=== PATIENT | male | born 1965 | race Caucasian/White ===

== ENCOUNTER 2016-11-29 07:12 | Emergency (ER) | payer OTHER ==
[~2016-11-29] VITALS: Ht 182.9 cm; Wt 100.0 kg
[~2016-11-29 07:12] MED LIST: DILTCD240 PO; FOLI1 PO; LISI-363 PO; MVI PO; NICO14T TD; POLY10O EACH EYE; PROP20 PO; QUET100 PO; TAB-TAB PO; THIA100T PO
[2016-11-29 07:15] VITALS: BP 172/88; PULSE 98; RESP 15; TEMP 97.5; O2SAT 98
[2016-11-29 07:21] VITALS: BP 160/87; PULSE 104; RESP 20; O2SAT 96
[2016-11-29 07:27] VITALS: BP 160/87; PULSE 107; RESP 16; O2SAT 99
[2016-11-29] MEDS ORDERED: QUET1TAB9 PO (07:36)
[2016-11-29] MEDS ORDERED: ATEN25TA PO (07:36)
[2016-11-29] MEDS ORDERED: FURO1TAB62 PO (07:36)
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
[2016-11-29] MEDS ORDERED: SODIUM CHLORIDE 0.9% FLUSH 5 ML FLUSH IVF PRN (07:45)
[2016-11-29] MEDS ORDERED: ONDANSETRON HCL 4 MG/2 ML VIAL IVP ONE (07:45)
[2016-11-29] MEDS ORDERED: SODIUM CHLORID 0.9% 500 ML INJ 500 ML IV ONE (07:45)
[2016-11-29] MEDS ORDERED: MORPHINE SULFATE 4 MG/ML INJ IV PUSH ONE (07:45)
[2016-11-29 07:46] LABS: AUTOMATED NEUTROPHIL # 2.7 TH/MM3 (1.8-7.7); BASOPHIL # 0.1 TH/MM3 (0-0.2); BASOPHIL % 1.4 % (0.0-2.0); HEMATOCRIT 29.3 % (39.0-51.0); HEMO FLAGS DIFF FINAL; LYMPH % 14.7 % (9.0-44.0); LYMPHOCYTE # 0.5 TH/MM3 (1.0-4.8); MEAN CELL VOLUME 76.7 FL (80.0-100.0); MEAN CORPUSCULAR HEMOGLOBIN 25.5 PG (27.0-34.0); MEAN CORPUSCULAR HGB CONC 33.3 % (32.0-36.0); MONO % 6.3 % (0.0-8.0); NEUT % 76.6 % (16.0-70.0); PLATELET COUNT 103 TH/MM3 (150-450); RED BLOOD COUNT 3.82 MIL/MM3 (4.50-5.90); RED CELL DISTRIBUTION WIDTH 19.8 % (11.6-17.2); WHITE BLOOD COUNT 3.6 TH/MM3 (4.0-11.0)
[2016-11-29 08:00] LABS: APTT (PATIENT) 29.8 SEC (24.3-30.1); INTERNATIONAL NORMALIZED RATIO 1.2 RATIO; PROTHROMBIN TIME - PATIENT 13.4 SEC (9.8-11.6)
[2016-11-29 08:03] LABS: ANION GAP 8 MEQ/L (5-15); AST (GOT) 110 U/L (15-37); BICARBONATE 22.6 MEQ/L (21.0-32.0); BLOOD UREA NITROGEN 4 MG/DL (7-18); CHLORIDE 104 MEQ/L (98-107); GLOMERULAR FILTRATION RATE 112 ML/MIN (>89); POTASSIUM 3.7 MEQ/L (3.5-5.1); SODIUM (NA) 135 MEQ/L (136-145)
[2016-11-29 08:07] LABS: ALKALINE PHOSPHATASE 167 U/L (45-117); ALT (GPT) 68 U/L (12-78)
--- NOTE | 2016-11-29 08:21 | RADRPT ---
EXAM DATE/TIME: 11/29/2016 08:01 [facility] COMPARISON: No previous studies available for comparison. INDICATIONS : Lower abdominal pain, history of ascite and liver failure ORAL CONTRAST: No oral contrast ingested. RADIATION DOSE: 13.43 CTDIvol (mGy) MEDICAL HISTORY : Hypertension. Chronic obstructive pulmonary disease. Diabetes mellitus type 1. SURGICAL HISTORY : ENCOUNTER: Initial ACUITY: 1 day PAIN SCALE: 5/10 LOCATION: lower quadrant TECHNIQUE: Volumetric scanning of the abdomen and pelvis was performed. Using automated exposure control and ad justment of the mA and/or kV according to patient size, radiation dose was kept as low as reasonably achievable to obtain optimal diagnostic quality images. FINDINGS: LOWER LUNGS: The visualized lower lungs are clear. LIVER: Cirrhotic liver without lesion. There is no dilation of the biliary tree. No calcified gallstones. Moderate abdominal ascites. Subcentimeter low-density likely benign. SPLEEN: Massive splenomegaly without lesion. There are some varices in the upper abdomen. Splenule seen. PANCREAS: Within normal limits. KIDNEYS: Normal in size and shape. There is no mass, stone, or hydronephrosis. ADRENAL GLANDS: Within normal limits. VASCULAR: There is no aortic aneurysm. BOWEL/MESENTERY: The stomach, small bowel, and colon demonstrate no acute abnormality. There is no free intraperitone al air or fluid. ABDOMINAL WALL: Within normal limits. RETROPERITONEUM: There is no lymphadenopathy. BLADDER: No wall thickening or mass. REPRODUCTIVE: Within normal limits. INGUINAL: There is no lymphadenopathy or hernia. MUSCULOSKELETAL: Within normal limits for patient age. CONCLUSION: 1. Cirrhosis and splenomegaly. 2. Moderate abdominal ascites. 3. Subcentimeter low-density likely benign. Shane Man MD on November 29, 2016 at 8:16 Board Certified Radiologist. This report was verified electronically.
[2016-11-29 09:05] VITALS: BP 163/80; PULSE 87; RESP 12; O2SAT 99
[2016-11-29 09:16] LABS: BLOOD, URINE NEG (NEG); GLUCOSE,URINE NEG (NEG); KETONE, URINE NEG (NEG); NITRITE,URINE NEG (NEG); PH, URINE 7.5 (5.0-8.5); URINE COLOR YELLOW (YELLW/STRAW)
[2016-11-29 09:18] LABS: COMMENT (UR) CULT NOT INDICATED; CULTURE IF INDICATED CULT NOT INDICATED
== END 2016-11-29 10:34 | disposition home or self-care (01) ==
LOC: NEPE 07:12
DX: R18.8 Other ascites (principal); K74.60 Unspecified cirrhosis of liver; I12.9 Hypertensive chronic kidney disease with stage 1 through stage 4 chronic kidney disease, or unspecified chronic kidney disease; N18.9 Chronic kidney disease, unspecified; K75.9 Inflammatory liver disease, unspecified; F17.210 Nicotine dependence, cigarettes, uncomplicated; F12.10 Cannabis abuse, uncomplicated; Z87.891 Personal history of nicotine dependence
CPT/HCPCS: 74176; 80053; 81001; 83690; 85025; 85610; 85730; 96361; 96374; 96375; 99284; J2270; J2405; J7040

== ENCOUNTER 2017-01-11 07:31 | Inpatient (IN) | payer OTHER ==
[~2017-01-11] VITALS: Ht 182.9 cm; Wt 96.7 kg
[2017-01-11] VITALS (18 sets, daily range): BP systolic 115–162; BP diastolic 59–98; PULSE 102–188; RESP 20–26; TEMP 98–99.7; O2SAT 88–97
[~2017-01-11 07:31] MED LIST changes: +ATEN25TA PO; -DILTCD240 PO; -FOLI1 PO; +FURO1TAB62 PO; -LISI-363 PO; -MVI PO; -NICO14T TD; -POLY10O EACH EYE; -PROP20 PO; -QUET100 PO; +QUET1TAB9 PO; -TAB-TAB PO; -THIA100T PO
[2017-01-11] MEDS ORDERED: QUET1TAB9 PO (07:50)
[2017-01-11] MEDS ORDERED: SPIR100T PO (07:50)
[2017-01-11] MEDS ORDERED: ALBUAER3 INH (07:50)
[2017-01-11] MEDS ORDERED: FURO1TAB61 PO (07:50)
[2017-01-11] MEDS ORDERED: DICL75TA PO (07:50)
[2017-01-11] MEDS ORDERED: DILTIAZEM HCL 25 MG/5 ML VIAL IV ONE ×2 (08:00→08:30)
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
[2017-01-11 08:22] LABS: AUTOMATED NEUTROPHIL # 12.1 TH/MM3 (1.8-7.7); BASOPHIL # 0.1 TH/MM3 (0-0.2); BASOPHIL % 0.6 % (0.0-2.0); EOSINOPHIL % 0.1 % (0.0-4.0); LYMPH % 6.4 % (9.0-44.0); LYMPHOCYTE # 0.9 TH/MM3 (1.0-4.8); MEAN CELL VOLUME 72.7 FL (80.0-100.0); MEAN CORPUSCULAR HEMOGLOBIN 24.2 PG (27.0-34.0); MEAN CORPUSCULAR HGB CONC 33.3 % (32.0-36.0); MONO % 4.8 % (0.0-8.0); NEUT % 88.1 % (16.0-70.0); PLATELET COUNT 96 TH/MM3 (150-450); RED BLOOD COUNT 4.13 MIL/MM3 (4.50-5.90); RED CELL DISTRIBUTION WIDTH 20.6 % (11.6-17.2); WHITE BLOOD COUNT 13.7 TH/MM3 (4.0-11.0)
[2017-01-11 08:25] LABS: HEMO FLAGS AUTO DIFF
[2017-01-11 08:29] LABS: APTT (PATIENT) 29.8 SEC (24.3-30.1); INTERNATIONAL NORMALIZED RATIO 1.2 RATIO; PROTHROMBIN TIME - PATIENT 13.4 SEC (9.8-11.6)
[2017-01-11] MEDS ORDERED: VANCOMYCIN INJ 1,000 MG in SODIUM CHLOR 0.9% 250 ML INJ 250 ML IV STA (08:34)
[2017-01-11] MEDS ORDERED: PIPERACIL-TAZO 4.5 GM PREMIX 100 ML IV STA (08:34)
[2017-01-11] MEDS: DILTIAZEM INJ 125 MG in SODIUM CHLORIDE 0.9% INJ 100 ML IV SCH ×2 (08:35→17:35)
[2017-01-11] MEDS ORDERED: SODIUM CHLOR 0.9% 1000 ML INJ 1,000 ML IV ONE ×2 (08:35)
[2017-01-11] MEDS ORDERED: SODIUM CHLOR 0.9% 1000 ML INJ 700 ML IV ONE (08:35)
--- NOTE | 2017-01-11 08:43 | RADRPT ---
EXAM DATE/TIME: 01/11/2017 08:10 [facility] COMPARISON: CHEST SINGLE AP, April 13, 2016, 8:53. INDICATIONS : Shortness of breath. MEDICAL HISTORY : Hypertension. Smoker. SURGICAL HISTORY : None. ENCOUNTER: Initial ACUITY: 2 days PAIN SCORE: 0/10 LOCATION: Bilateral chest FINDINGS: Increased prominence of the central interstitial vascular markings are noted. There is no evidence of acute air space disease or pleural effusion. Heart and mediastinal structures are stable. CONCLUSION: Mild central vascular congestion. No evidence of acute air space disease or pulmonary edema. Oh I stable chest. Louie Jackson MD on January 11, 2017 at 8:41 Board Certified Radiologist. This report was verified electronically.
[2017-01-11 08:45] LABS: ALT (GPT) 99 U/L (12-78); ANION GAP 13 MEQ/L (5-15); AST (GOT) 204 U/L (15-37); BICARBONATE 22.1 MEQ/L (21.0-32.0); BLOOD UREA NITROGEN 9 MG/DL (7-18); CHLORIDE 95 MEQ/L (98-107); GLOMERULAR FILTRATION RATE 89 ML/MIN (>89); POTASSIUM 3.4 MEQ/L (3.5-5.1); SODIUM (NA) 130 MEQ/L (136-145)
[2017-01-11 08:52] LABS: PLATELET ESTIMATE SMEAR LOW (NORMAL); PLATELET MORPHOLOGY NORMAL (NORMAL); SCAN/DIFF AUTO DIFF CONFIRMED
[2017-01-11 08:54] LABS: ALKALINE PHOSPHATASE 222 U/L (45-117); TOTAL BILIRUBIN ADULT 1.3 MG/DL (0.2-1.0)
[2017-01-11] MEDS ORDERED: MAGNESIUM SULFATE 1 GM PREMIX 100 ML IV ONE (09:15)
[2017-01-11] MEDS ORDERED: POTASSIUM CHLORIDE 20 MEQ CONTROLLED RELEASE TAB PO ONE (09:15)
[2017-01-11] MEDS ORDERED: FLUMAZENIL 0.5 MG/5 ML VIAL IV PUSH PRN (09:15)
[2017-01-11] MEDS ORDERED: LORazepam 2 MG TAB PO PRN (09:15)
[2017-01-11] MEDS ORDERED: LORazepam 1 MG TAB PO PRN (09:15)
[2017-01-11] MEDS ORDERED: LORazepam 2 MG/ML VIAL IV PUSH PRN (09:15)
[2017-01-11 10:10] LABS: LACTIC ACID GHOST NOT REPORTABLE
[2017-01-11 11:19] LABS: AMPHETAMINE, URINE POS (NEG); BARBITURATES, URINE NEG (NEG); COCAINE, URINE NEG (NEG)
[2017-01-11] MEDS: LORazepam 2 MG/ML VIAL IV PUSH PRN ×3 (11:19→23:57)
[2017-01-11] MEDS ORDERED: SODIUM CHLOR 0.9% 1000 ML INJ 1,000 ML IV SCH (11:48)
[2017-01-11] MEDS ORDERED: ONDANSETRON HCL 4 MG/2 ML VIAL IVP PRN (12:00)
[2017-01-11] MEDS ORDERED: ACETAMINOPHEN 325 MG TAB PO PRN ×2 (12:00)
[2017-01-11] MEDS ORDERED: SENNOSIDES 8.6 MG TAB PO PRN (12:00)
[2017-01-11] MEDS ORDERED: NALOXONE HCL 0.4 MG/ML AMP IV PRN (12:00)
[2017-01-11] MEDS: DOCUSATE SODIUM 100 MG CAP PO SCH (12:14)
--- NOTE | 2017-01-11 12:27 | EKG ---
Date Performed: 01/11/2017 Time Performed: 07:39:50 PTAGE: 52 years EKG: ATRIAL FIBRILLATION WITH RAPID VENTRICULAR RESPONSE WITH ABERRANT CONDUCTION OR VENTRICULAR PREMATURE COMPLEXES MODERATE VOLTAGE CRITERIA FOR LVH, CONSIDER NORMAL VARIANT ST DEVIATION AND MODE RATE T-WAVE ABNORMALITY, CONSIDER ANTEROLATERAL ISCHEMIA ABNORMAL ECG INTERPRETATION BASED ON A DEFAU LT AGE OF 40 YEARS NO PREVIOUS TRACING DOCTOR: Juan Ramon Bajwa Interpretating Date/Time 01/11/2017 12:25:06
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
[2017-01-11] MEDS ORDERED: Vancomycin Consult Pharmacy 1 EA OTHER SCH (12:30)
[2017-01-11] MEDS ORDERED: ENOXAPARIN SODIUM 40 MG/0.4 ML SYRINGE SQ SCH (12:45)
[2017-01-11] MEDS: DILTIAZEM HCL 60 MG TAB PO SCH ×3 (13:08→20:56)
[2017-01-11] MEDS: FOLIC ACID 1 MG TAB PO SCH (13:09)
[2017-01-11] MEDS: THIAMINE HCL 100 MG TAB PO SCH (13:09)
[2017-01-11] MEDS: MULTIVITAMIN TAB PO SCH (13:09)
[2017-01-11] MEDS: PIPERACIL-TAZO 4.5 GM PREMIX 100 ML IV SCH ×2 (17:34→20:58)
[2017-01-11] MEDS: VANCOMYCIN INJ 1,750 MG in SODIUM CHLORID 0.9% 500 ML INJ 500 ML IV SCH (17:34)
[2017-01-11 19:33] LABS: ANION GAP 8 MEQ/L (5-15); BICARBONATE 23.3 MEQ/L (21.0-32.0); BLOOD UREA NITROGEN 9 MG/DL (7-18); CHLORIDE 99 MEQ/L (98-107); GLOMERULAR FILTRATION RATE 114 ML/MIN (>89); MAGNESIUM 1.6 MG/DL (1.5-2.5); POTASSIUM 4.1 MEQ/L (3.5-5.1); SODIUM (NA) 130 MEQ/L (136-145)
[2017-01-11] MEDS ORDERED: FUROSEMIDE 40 MG/4 ML VIAL IV PUSH ONE (19:45)
[2017-01-11] MEDS ORDERED: RESP: IPRATROPIUM 0.5 MG/2.5 ML NEB NEB ONE (20:00)
--- NOTE | 2017-01-11 20:47 | RADRPT ---
EXAM DATE/TIME: 01/11/2017 19:51 [facility] COMPARISON: CHEST SINGLE AP, January 11, 2017, 8:10. INDICATIONS : Shortness of breath. MEDICAL HISTORY : None. SURGICAL HISTORY : None. ENCOUNTER: Subsequent ACUITY: 2 days PAIN SCORE: Non-responsive. LOCATION: Bilateral chest FINDINGS: A single view of the chest demonstrates the lungs to be symmetrically hyperinflated without evidence of a mass or effusion. There is mild hazy opacity in the right medial lung base. There is mild scarri ng. There are multiple overlying electrocardiogram leads. The cardiomediastinal contours are unremar kable. Osseous structures are intact. CONCLUSION: Mild hazy opacity in the right medial lung base of concern for early pneumonia. Bc Penny MD on January 11, 2017 at 20:44 Board Certified Radiologist. This report was verified electronically.
[2017-01-11] MEDS: SODIUM CHLORIDE 0.9% FLUSH 10 ML FLUSH IV FLUSH SCH (20:57)
[2017-01-11] MEDS ORDERED: VANCOMYCIN INJ 1,250 MG in SODIUM CHLOR 0.9% 250 ML INJ 250 ML IV SCH (21:00)
[2017-01-11 21:02] LABS: BLOOD GAS BASE EXCESS -1.7 mmol/L (-2-2); BLOOD GAS CARBOXYHEMOGLOBIN 1.9 % (0-4); BLOOD GAS HCO3 22 mmol/L (22-26); BLOOD GAS METHEMOGLOBIN 0.6 % (0-2); BLOOD GAS O2 HGB SATURATION 86 % (90-100); BLOOD GAS OXYGEN CONTENT 11.3 Vol % (12.0-20.0); BLOOD GAS PCO2 37 mmHg (38-42); BLOOD GAS PO2 58 mmHg (61-120); BLOOD GAS TOTAL HGB 9.3 G/DL (12.0-16.0); TEMP CORR TO 98.6
[2017-01-11 21:04] LABS: CRITICAL VALUE YES; DRAW SITE RT RADIAL; LITER FLOW 8 L/M; NUMBER OF ARTERIAL PUNCTURES 1; OXYGEN DEVICE SM; STAT YES; ULNAR PULSE PRESENT
[2017-01-11 22:09] LABS: HEMOGLOBIN A1a 1.3 %; HEMOGLOBIN A1b 1.7 %; HEMOGLOBIN Ao 85.2 %; HEMOGLOBIN LA1C 2.3 %; HEMOGLOBIN P3 3.5 %
[2017-01-12] VITALS (24 sets, daily range): BP systolic 104–147; BP diastolic 60–83; PULSE 80–160; RESP 11–22; TEMP 98.8–99.8; O2SAT 87–100
[2017-01-12] MEDS: LORazepam 2 MG/ML VIAL IV PUSH PRN ×2 (03:24→12:30)
[2017-01-12] MEDS: VANCOMYCIN INJ 1,750 MG in SODIUM CHLORID 0.9% 500 ML INJ 500 ML IV SCH ×2 (04:00→21:16)
[2017-01-12] MEDS: PIPERACIL-TAZO 4.5 GM PREMIX 100 ML IV SCH ×4 (04:02→21:16)
[2017-01-12 06:54] LABS: AUTOMATED NEUTROPHIL # 11.2 TH/MM3 (1.8-7.7); BASOPHIL # 0.1 TH/MM3 (0-0.2); BASOPHIL % 0.5 % (0.0-2.0); EOSINOPHIL # 0.1 TH/MM3 (0-0.4); EOSINOPHIL % 0.4 % (0.0-4.0); HEMATOCRIT 28.3 % (39.0-51.0); LYMPH % 7.8 % (9.0-44.0); MEAN CELL VOLUME 73.9 FL (80.0-100.0); MEAN CORPUSCULAR HGB CONC 33.8 % (32.0-36.0); MONO % 4.1 % (0.0-8.0); NEUT % 87.2 % (16.0-70.0); PLATELET COUNT 63 TH/MM3 (150-450); RED BLOOD COUNT 3.83 MIL/MM3 (4.50-5.90); RED CELL DISTRIBUTION WIDTH 19.8 % (11.6-17.2); WHITE BLOOD COUNT 12.8 TH/MM3 (4.0-11.0)
[2017-01-12 07:09] LABS: HEMO FLAGS AUTO DIFF
[2017-01-12 07:23] LABS: ALKALINE PHOSPHATASE 162 U/L (45-117); ALT (GPT) 81 U/L (12-78); ANION GAP 6 MEQ/L (5-15); AST (GOT) 138 U/L (15-37); BICARBONATE 27.5 MEQ/L (21.0-32.0); BLOOD UREA NITROGEN 9 MG/DL (7-18); CHLORIDE 100 MEQ/L (98-107); GLOMERULAR FILTRATION RATE 112 ML/MIN (>89); MAGNESIUM 1.5 MG/DL (1.5-2.5); POTASSIUM 3.4 MEQ/L (3.5-5.1); SODIUM (NA) 133 MEQ/L (136-145); TOTAL BILIRUBIN ADULT 1.7 MG/DL (0.2-1.0)
[2017-01-12 07:54] LABS: PLATELET ESTIMATE SMEAR LOW (NORMAL); PLATELET MORPHOLOGY NORMAL (NORMAL); SCAN/DIFF AUTO DIFF CONFIRMED
[2017-01-12] MEDS ORDERED: DILTIAZEM HCL 25 MG/5 ML VIAL ONE (08:02)
[2017-01-12] MEDS ORDERED: DILTIAZEM HCL 25 MG/5 ML VIAL IV ONE (08:15)
[2017-01-12] MEDS ORDERED: METOPROLOL TARTRATE 5 MG/5 ML VIAL ONE (08:24)
[2017-01-12] MEDS ORDERED: EPINEPHrine HCL (1:10,000) 1 MG/10 ML SYRINGE ONE (08:39)
[2017-01-12] MEDS ORDERED: ATROPINE SULFATE 1 MG/10 ML SYRINGE ONE (08:39)
--- NOTE | 2017-01-12 08:40 | HHI.PR ---
Subjective Remarks The patient said that he has some sleep overnight. He denied any palpitations. He says his breathing is typical for him. He said he was waking up and tired. He said he felt like he was withdrawing. Discussed with nursing who is at the bedside.. Objective Vitals Vital Signs Date Time Temp Pulse Resp B/P Pulse Ox O2 Delivery O2 Flow Rate FiO2 01/12/17 06:04 142 01/12/17 05:00 144 01/12/17 04:00 136 01/12/17 03:42 98.9 141 22 136/75 92 01/12/17 03:00 141 01/12/17 02:00 136 01/12/17 01:00 136 01/12/17 00:00 130 01/12/17 00:00 99.8 128 22 140/81 96 01/11/17 23:00 130 01/11/17 22:00 120 01/11/17 21:00 118 01/11/17 20:47 92 Simple Mask 8.00 01/11/17 20:00 120 01/11/17 20:00 99.7 114 26 161/86 88 01/11/17 19:02 91 Simple Mask 8.00 01/11/17 19:00 120 01/11/17 18:09 102 01/11/17 17:00 112 01/11/17 15:35 92 Nasal Cannula 2.00 01/11/17 15:00 98.0 144 20 132/82 93 01/11/17 15:00 117 01/11/17 12:58 123 120/71 01/11/17 11:57 97 21 01/11/17 10:57 146 20 122/74 97 01/11/17 09:32 160 120/59 01/11/17 09:05 154 20 115/67 95 I/O 01/11/17 01/11/17 01/11/17 01/12/17 01/12/17 01/12/17 07:00 15:00 23:00 07:00 15:00 23:00 Intake Total 1050 ml Output Total 300 ml 1600 ml Balance -300 ml -550 ml Intake Oral 420 ml IV Total 630 ml Output Urine Total 300 ml 1600 ml # Voids 1 Result Diagram: 01/12/17 0616 01/12/17 0616 Imaging Last Impressions Chest X-Ray 01/11/17 0747 Signed Impressions: Service Date/Time: Wednesday, January 11, 2017 08:10 - CONCLUSION: Mild central vascular congestion. No evidence of acute air space disease or pulmonary edema. Oh I stable chest. Louie Jackson MD Objective Remarks GENERAL: Disheveled adult male in no acute distress SKIN: Slightly diaphoretic. Patient has multiple areas along the skin, nail beds, distal fingertips, volar aspect of the wrist, etc. that are open almost pustular in appearance but no active drainage. HEAD: Normocephalic. EYES: Pupils equal and round. No scleral icterus. No injection or drainage. ENT: No nasal bleeding or discharge. Mucous membranes pink and moist. NECK: Supple without nuchal rigidity. CARDIOVASCULAR: Tachycardic, irregularly irregular rhythm, no murmur appreciated. RESPIRATORY: Diffuse wheezing throughout both lung reid. GASTROINTESTINAL: Abdomen soft, non-tender, slightly distended. Umbilical hernia noted. MUSCULOSKELETAL: Trace-1+ BLE edema. NEUROLOGICAL: Awake and alert. Motor grossly within normal limits. Normal speech. PSYCHIATRIC: Poor insight and judgment, flattened affect. Medications and IVs Current Medications Medications (Trade) Dose Ordered Sig/Yi Route Start Time Stop Time Status Last Admin (Cardizem Inj/NS Inj) 125 ml @ 0 mls/hr TITRATE IV 01/11/17 08:00 01/11/17 17:35 (Romazicon Inj) 0.2 mg Q1M PRN IV PUSH 01/11/17 09:15 (Ativan) 1 mg Q4H PRN PO 01/11/17 09:15 (Ativan Inj) 1 mg Q4H PRN IV PUSH 01/11/17 09:15 01/11/17 11:19 (Ativan) 2 mg Q2H PRN PO 01/11/17 09:15 (Ativan Inj) 2 mg Q2H PRN IV PUSH 01/11/17 09:15 01/12/17 03:24 (Ativan Inj) 2 mg Q1H PRN IV PUSH 01/11/17 09:15 (Ativan Inj) 2 mg Q15M PRN IV PUSH 01/11/17 09:15 (SEROquel) 200 mg DAILY PO 01/12/17 09:00 (NS Flush) 2 ml UNSCH PRN IV FLUSH 01/11/17 12:00 (NS Flush) 2 ml BID IV FLUSH 01/11/17 21:00 01/11/17 20:57 (Tylenol) 650 mg Q4H PRN PO 01/11/17 12:00 (Zofran Inj) 4 mg Q6H PRN IVP 01/11/17 12:00 (Colace) 100 mg Q12H PO 01/11/17 12:00 01/11/17 12:14 (Senokot) 17.2 mg Q12H PRN PO 01/11/17 12:00 (Tylenol) 650 mg Q6H PRN PO 01/11/17 12:00 (Roxicodone) 10 mg Q4H PRN PO 01/11/17 12:00 (Roxicodone) 5 mg Q4H PRN PO 01/11/17 12:00 (Narcan Inj) 0.4 mg UNSCH PRN IV 01/11/17 12:00 Diltiazem HCl 60 mg 60 mg QID PO 01/11/17 13:00 01/11/17 20:56 Piperacillin Sod/ Tazobactam Sod 100 ml @ 200 mls/hr Q6H IV 01/11/17 15:00 01/12/17 04:02 (Vancomycin Consult Pharmacy) 0 ml @ 0 mls/hr UNSCH OTHER 01/11/17 12:30 (Theragran) 1 tab DAILY PO 01/11/17 13:00 01/11/17 13:09 (Vitamin B1) 100 mg DAILY PO 01/11/17 13:00 01/11/17 13:09 Folic Acid 1 mg 1 mg DAILY PO 01/11/17 13:00 01/11/17 13:09 (Vancomycin Inj/ NS 500 ml Inj) 517.5 ml @ 250 mls/hr Q12H IV 01/11/17 16:00 01/12/17 04:00 Miscellaneous Information SPECIFIC LAB TO BE DRAWN:VANCOMYCIN TROUGH DATE TO... ONCE ONCE .XX 01/13/17 03:45 01/13/17 03:46 A/P Assessment and Plan Sepsis/ Lactic acidosis The pt has multiple wound infections on his body. He has evidence of cellulitis in his LUE. He had leukocytosis and his HR was elevated. He received IVFs, vancomycin and Zosyn in the ED. Repeat chest x-ray with evidence of pneumonia. - continue vancomycin and Zosyn. - S/p IVFs. - follow blood, sputum, and urine cultures. - wound care per wound nurse consult. - echo requested. A fib with RVR The pt has a history of A fib. HR has been elevated to the 180s while on diltiazem gtt. He received 20 mg IV diltiazem x 1 and Lopressor 5 mg IV x 1 . - continue diltiazem gtt and PO diltiazem. - telemetry. - echo pending. - consult cardiology. - IV Lopressor as needed. - consider changing diltiazem gtt to amiodarone. Acute respiratory failure The patient is currently on an 8 L simple mask. Repeat chest x-ray with evidence of pneumonia. He has diffuse wheezing throughout all lung reid. - Continue vancomycin and Zosyn. - Solu-Medrol 125 mg IV 1. - Check a stat chest x-ray and ABG. - Oxygen as needed. - Hold off on nebs in the setting of A. fib with RVR. Alcohol abuse The pt appears to be withdrawing. Has a history of alcohol withdrawal seizures. - CIWA protocol. - seizure precautions and neuro checks. - MVI, thiamine, folate. - cessation instruction. - PT eval requested. Anemia/ Thrombocytopenia Likely s/t liver disease. - follow CBC and transfuse as needed. - hold off on chemical DVT PPx for now. Atypical chest pain Started in the emergency department. Troponin peaked at 0.03. EKG with A. fib with RVR. Likely secondary to atrial fibrillation. - Monitor on telemetry. - Pain control, oxygen as needed. - Cardiology consult requested. PPx: SCDs. Discharge Planning The patient is in A. fib with RVR, acute respiratory failure, is septic and is withdrawing from alcohol. The blow mold machine operator was called and graciously accepted the patient. The patient is transferring to [facility] [place]. Bc Read DO Jan 12, 2017 08:40
[2017-01-12 08:44] LABS: BLOOD GAS BASE EXCESS 0.3 mmol/L (-2-2); BLOOD GAS HCO3 24 mmol/L (22-26); BLOOD GAS METHEMOGLOBIN 0.6 % (0-2); BLOOD GAS O2 HGB SATURATION 81 % (90-100); BLOOD GAS OXYGEN CONTENT 10.2 Vol % (12.0-20.0); BLOOD GAS PCO2 37 mmHg (38-42); BLOOD GAS PO2 51 mmHg (61-120); BLOOD GAS TOTAL HGB 8.9 G/DL (12.0-16.0); TEMP CORR TO 98.6
[2017-01-12 08:45] LABS: CRITICAL VALUE YES; DRAW SITE RT RADIAL; LITER FLOW 8 L/M; NUMBER OF ARTERIAL PUNCTURES 1; OXYGEN DEVICE SIMPLE MASK; STAT YES; ULNAR PULSE PRESENT
[2017-01-12] MEDS ORDERED: methylPREDNISolone SOD SUCC 125 MG/2 ML VIAL IV PUSH ONE (08:45)
[2017-01-12] MEDS ORDERED: METOPROLOL TARTRATE 5 MG/5 ML VIAL IV ONE (08:45)
--- NOTE | 2017-01-12 09:05 | EC ---
Study Study Date:01/11/2017 STUDY CONCLUSIONS SUMMARY - Left ventricle: The cavity size was normal. Wall thickness was normal. Systolic function was vigorous. The estimated ejection fraction was in the range of 65% to 70%. Wall motion was normal; there were no regional wall motion abnormalities. - Mitral valve: Mildly thickened annulus. Structurally normal valve. Mild to moderate regurgitation. Impressions: No overt evidence of endocarditis. If LV function is below 40, please consider prescribing an ACEI or ARB or document rationale for non-use. PROCEDURE DATA STUDY STATUS: Elective. Procedure: Transthoracic echocardiography. Image quality was fair. Scanning was performed from the parasternal, apical, and subcostal acoustic windows. Study completion: The patient tolerated the procedure well. Transthoracic echocardiography. M-mode, complete 2D, complete spectral Doppler, and color Doppler. Patient status: Inpatient. CARDIAC ANATOMY LEFT VENTRICLE: The cavity size was normal. Wall thickness was normal. Systolic function was vigorous. The estimated ejection fraction was in the range of 65% to 70%. Wall motion was normal; there were no regional wall motion abnormalities. AORTIC VALVE: Trileaflet; normal thickness leaflets. Doppler: Transvalvular velocity was within the normal range. There was no stenosis. No regurgitation. Peak gradient: 16mm Hg (S). AORTA: Aortic root: The aortic root was normal in size. MITRAL VALVE: Mildly thickened annulus. Structurally normal valve. Doppler: Transvalvular velocity was within the normal range. There was no evidence for stenosis. Mild to moderate regurgitation. Peak gradient: 4mm Hg (D). LEFT ATRIUM: The atrium was normal in size. RIGHT VENTRICLE: The cavity size was normal. Wall thickness was normal. PULMONIC VALVE: Doppler: Transvalvular velocity was within the normal range. There was no evidence for stenosis. No regurgitation. TRICUSPID VALVE: Structurally normal valve. Doppler: Transvalvular velocity was within the normal range. Trace regurgitation. PULMONARY ARTERY: The main pulmonary artery was normal-sized. Systolic pressure was within the normal range. RIGHT ATRIUM: The atrium was normal in size. PERICARDIUM: There was no pericardial effusion. SYSTEMIC VEINS: Inferior vena cava: The vessel was normal in size. BASIC MEASUREMENTS ADULT Normal Left ventricle LV internal dimension, ED, chordal level, 43.3 mm 43-52 PLAX LV internal dimension, ES, chordal level, 34.1 mm 23-38 PLAX Fractional shortening, chordal level, PLAX *21 % >29 LV posterior wall thickness, ED 8.28 mm IVS/LVPW ratio, ED *1.44 <1.3 Ventricular septum Septal thickness, ED 11.9 mm Left atrium Anterior-posterior dimension 35 mm Right ventricle RV internal dimension, ED, PLAX 28.9 mm 19-38 DOPPLER MEASUREMENTS ADULT Normal Aortic valve Peak velocity, S 197 cm/s Peak gradient, S 16 mm Hg Mitral valve Peak E-wave velocity 101 cm/s Peak gradient, D 4 mm Hg Tricuspid valve Regurgitant peak velocity 312 cm/s Peak RV-RA gradient, S 39 mm Hg Maximal regurgitant velocity 312 cm/s LEGEND: Mean values are shown as u=mean value. Asterisk (*) robledo values outside specified normal range. Prepared and signed by Milind Justice [id number]
--- NOTE | 2017-01-12 09:32 | RADRPT ---
EXAM DATE/TIME: 01/12/2017 08:24 [facility] COMPARISON: CHEST SINGLE AP, January 11, 2017, 19:51. INDICATIONS : Respiratory failure. MEDICAL HISTORY : Mild hazy opacity in the right medial lung base SURGICAL HISTORY : None. ENCOUNTER: Subsequent ACUITY: 3 days PAIN SCORE: 0/10 LOCATION: Bilateral chest FINDINGS: Portable AP view of the chest demonstrates a normal-sized cardiac silhouette. There is new dense air space consolidation in the right lower lung zone and mild airspace opacity in the retrocardiac region . No pleural effusion or pneumothorax is visualized. The bones and soft tissues demonstrate no acute finding. CONCLUSION: There is increased and new bilateral lower lung zone airspace consolidation, right greater than left. Peter Rodriguez MD on January 12, 2017 at 9:29 Board Certified Radiologist. This report was verified electronically.
[2017-01-12] MEDS: SODIUM CHLORIDE 0.9% FLUSH 10 ML FLUSH IV FLUSH SCH ×2 (09:40→21:00)
[2017-01-12] MEDS: MULTIVITAMIN TAB PO SCH (09:40)
[2017-01-12] MEDS: FOLIC ACID 1 MG TAB PO SCH (09:41)
[2017-01-12] MEDS: DILTIAZEM HCL 60 MG TAB PO SCH ×3 (09:41→18:00)
[2017-01-12] MEDS: THIAMINE HCL 100 MG TAB PO SCH (09:41)
[2017-01-12] MEDS ORDERED: METOPROLOL TARTRATE 5 MG/5 ML VIAL IV PUSH ONE (09:45)
[2017-01-12] MEDS: DILTIAZEM INJ 125 MG in SODIUM CHLORIDE 0.9% INJ 100 ML IV SCH ×2 (09:46→21:32)
--- NOTE | 2017-01-12 10:22 | EKG ---
Date Performed: 01/12/2017 Time Performed: 05:45:42 PTAGE: 52 years EKG: Atrial fibrillation with uncontrolled ventricular response with PVC(s) Possible left ventri cular hypertrophy Extensive ST-T changes may be due to hypertrophy and/or ischemia Abnormal ECG NO PREVIOUS TRACING DOCTOR: John Jalloh Interpretating Date/Time 01/12/2017 10:22:23
[2017-01-12] MEDS ORDERED: RESP: ALBUTEROL 2.5 MG/IPRATROPIUM 0.5 MG NEB (PRN) NEB (10:30)
[2017-01-12] MEDS ORDERED: HEPARIN-D5W INJ 250 ML IV SCH (10:30)
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
[2017-01-12] MEDS ORDERED: PANTOPRAZOLE SODIUM 40 MG VIAL IV PUSH SCH (10:45)
--- NOTE | 2017-01-12 10:58 | EKG ---
Date Performed: 01/11/2017 Time Performed: 16:44:50 PTAGE: 52 years EKG: Atrial fibrillation with rapid ventricular response with PVC(s) or aberrant ventricular con duction. Extensive ST-T changes may be due to myocardial ischemia Abnormal ECG PREVIOUS TRACING : 01/11/2017 07.39 DOCTOR: John Jalloh Interpretating Date/Time 01/12/2017 10:57:54
[2017-01-12] MEDS: AZITHROMYCIN INJ 500 MG in SODIUM CHLOR 0.9% 250 ML INJ 250 ML IV SCH (11:00)
[2017-01-12 11:28] LABS: BACTERIA, URINE OCC /hpf; BLOOD, URINE MOD (NEG); GLUCOSE,URINE NEG (NEG); KETONE, URINE NEG (NEG); MUCUS URINE FEW /lpf (OCC); NITRITE,URINE NEG (NEG); SQUAMOUS EPITHELIAL CELL URINE 1 /hpf (0-5); URINE COLOR DARK-YELLOW (YELLW/STRAW)
[2017-01-12 11:30] LABS: COMMENT (UR) CATH-CULTURE IND; CULTURE IF INDICATED CATH CULTURE IND
[2017-01-12] MEDS: DOCUSATE SODIUM 100 MG CAP PO SCH ×2 (12:00)
[2017-01-12] MEDS: METOPROLOL TARTRATE 5 MG/5 ML VIAL IV PUSH SCH ×2 (12:00→18:00)
[2017-01-12] MEDS: THIAMINE INJ 100 MG in SODIUM CHLORIDE 0.9% INJ 100 ML IV SCH (12:00)
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
[2017-01-12 13:26] LABS: MEAN CELL VOLUME 76.5 FL (80.0-100.0); MEAN CORPUSCULAR HEMOGLOBIN 24.3 PG (27.0-34.0); MEAN CORPUSCULAR HGB CONC 31.7 % (32.0-36.0); PLATELET COUNT 37 TH/MM3 (150-450); RED BLOOD COUNT 2.24 MIL/MM3 (4.50-5.90); RED CELL DISTRIBUTION WIDTH 19.5 % (11.6-17.2); WHITE BLOOD COUNT 6.7 TH/MM3 (4.0-11.0)
[2017-01-12 13:34] LABS: HEMATOCRIT 17.2 % (39.0-51.0)
[2017-01-12 13:35] LABS: APTT (PATIENT) 52.2 SEC (24.3-30.1); INTERNATIONAL NORMALIZED RATIO 1.6 RATIO; PROTHROMBIN TIME - PATIENT 17.8 SEC (9.8-11.6); REVIEW FLAG FINAL
[2017-01-12] MEDS ORDERED: POTASSIUM CHLOR 40 MEQ PREMIX 100 ML IV PRN ×2 (14:00)
[2017-01-12] MEDS ORDERED: MAGNESIUM SULFATE INJ 4 GM in SODIUM CHLORIDE 0.9% INJ 92 ML IV PRN (14:00)
[2017-01-12] MEDS ORDERED: POTASSIUM PHOSPHATE INJ 30 MMOL in SODIUM CHLOR 0.9% 250 ML INJ 250 ML IV PRN (14:00)
[2017-01-12] MEDS ORDERED: POTASSIUM CHLOR 20 MEQ PREMIX 100 ML IV PRN ×2 (14:00)
[2017-01-12] MEDS ORDERED: SODIUM PHOSPHATE INJ 30 MMOL in SODIUM CHLOR 0.9% 250 ML INJ 240 ML IV PRN (14:00)
[2017-01-12] MEDS ORDERED: POTASSIUM CHLORIDE 25 MEQ EFFERVESCENT TAB PO PRN (14:00)
[2017-01-12] MEDS ORDERED: MAGNESIUM SULFATE INJ 2 GM in SODIUM CHLORIDE 0.9% INJ 96 ML IV PRN (14:00)
[2017-01-12] MEDS ORDERED: MAGNESIUM OXIDE 400 MG TAB PO PRN (14:00)
[2017-01-12] MEDS ORDERED: POTASSIUM PHOSPHATE MONOBASIC 500 MG TAB PO PRN (14:00)
[2017-01-12] MEDS ORDERED: POTASSIUM PHOSPHATE MONOBASIC 500 MG TAB PO/TUBE PRN (14:00)
[2017-01-12] MEDS: PANTOPRAZOLE INJ 80 MG in SODIUM CHLORIDE 0.9% INJ 100 ML IV SCH (15:00)
[2017-01-12] MEDS: DEXMEDETOMIDINE INJ 200 MCG in SODIUM CHLORIDE 0.9% INJ 50 ML IV SCH ×2 (15:04→21:13)
[2017-01-12 15:14] LABS: AUTOMATED NEUTROPHIL # 7.4 TH/MM3 (1.8-7.7); BASOPHIL % 0.4 % (0.0-2.0); EOSINOPHIL % 0.1 % (0.0-4.0); HEMATOCRIT 24.2 % (39.0-51.0); LYMPH % 3.2 % (9.0-44.0); LYMPHOCYTE # 0.2 TH/MM3 (1.0-4.8); MEAN CELL VOLUME 74.8 FL (80.0-100.0); MEAN CORPUSCULAR HEMOGLOBIN 25.2 PG (27.0-34.0); MEAN CORPUSCULAR HGB CONC 33.7 % (32.0-36.0); MONO % 1.2 % (0.0-8.0); NEUT % 95.1 % (16.0-70.0); PLATELET COUNT 52 TH/MM3 (150-450); RED BLOOD COUNT 3.24 MIL/MM3 (4.50-5.90); RED CELL DISTRIBUTION WIDTH 20.1 % (11.6-17.2); WHITE BLOOD COUNT 7.8 TH/MM3 (4.0-11.0)
[2017-01-12 15:29] LABS: HEMO FLAGS AUTO DIFF
[2017-01-12 16:18] LABS: PLATELET ESTIMATE SMEAR LOW (NORMAL); PLATELET MORPHOLOGY NORMAL (NORMAL); SCAN/DIFF AUTO DIFF CONFIRMED
[2017-01-12] MEDS: methylPREDNISolone SOD SUCC 125 MG/2 ML VIAL IV PUSH SCH (21:14)
[2017-01-12] MEDS: RESP: ALBUTEROL 2.5 MG/IPRATROPIUM 0.5 MG NEB (SCH) NEB (21:45)
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
[2017-01-13] VITALS (14 sets, daily range): BP systolic 86–105; BP diastolic 53–67; PULSE 82–171; RESP 9–28; TEMP 97.3–99; O2SAT 92–100
[2017-01-13] MEDS: PANTOPRAZOLE INJ 80 MG in SODIUM CHLORIDE 0.9% INJ 100 ML IV SCH ×2 (01:16→11:00)
[2017-01-13] MEDS: DILTIAZEM HCL 60 MG TAB PO SCH ×6 (01:31→20:22)
[2017-01-13] MEDS: DOCUSATE SODIUM 100 MG CAP PO SCH ×3 (01:31→23:27)
[2017-01-13] MEDS: METOPROLOL TARTRATE 5 MG/5 ML VIAL IV PUSH SCH ×5 (01:32→23:27)
[2017-01-13] MEDS: DEXMEDETOMIDINE INJ 200 MCG in SODIUM CHLORIDE 0.9% INJ 50 ML IV SCH (02:07)
[2017-01-13] MEDS: RESP: ALBUTEROL 2.5 MG/IPRATROPIUM 0.5 MG NEB (SCH) NEB ×4 (03:02→20:57)
[2017-01-13] MEDS: PIPERACIL-TAZO 4.5 GM PREMIX 100 ML IV SCH ×4 (03:30→20:21)
[2017-01-13] MEDS: SODIUM CHLORIDE 0.9% FLUSH 10 ML FLUSH IV FLUSH SCH ×2 (09:00→20:22)
--- NOTE | 2017-01-13 09:01 | HHI.CCPN ---
Subjective Remarks/Hospital Course Patient is a 52-year-old male with history of liver cirrhosis, continued alcohol abuse, alcohol dependence, COPD who presented to the hospital feeling unwell and also for possible skin infection involving his hands per admit note. He stated that he had been drinking up to 2 L of bourbon daily and stopped prior to the day of admission. Patient has history of alcohol withdrawal seizures also. Patient was admitted to the hospital service with A. fib with RVR, early alcohol withdrawal and sepsis secondary to pneumonia and cellulitis. Overnight patient was getting increasingly agitated today a.m. oxygen requirements went up to 8 L by simple mask. ABG showed PO2 on 8L was only 51. Chest x-ray today showed increasing bibasilar right more than left infiltrates. With hypoxemic respiratory failure, alcohol withdrawal patient was transferred to ICU and critical care medicine was consulted. I evaluated the patient in ICU. He is in moderate distress, intermittently agitated. He is currently in atrial fibrillation with rates varying from 140-170 on Cardizem drip. Additional 20 mg IV push of Cardizem and 5 mg IV push of metoprolol given and Cardizem infusion was increased to 20 mg per hour. Cannot anticoagulate with acute on chronic thrombocytopenia. I would also try to avoid amiodarone due to liver cirrhosis. 2-D echo shows normal ejection fraction and mild to moderate mitral regurgitation. SUBJ 01/13: Remains sedated with Precedex for alcohol withdrawal. Chest x-ray shows unchanged right more than left infiltrates. Lab work is pending today. CBC and known showed hemoglobin of 5.4 but repeat showed 8.2 and so no transfusion was given Objective Vital Signs Date Time Temp Pulse Resp B/P Pulse Ox O2 Delivery O2 Flow Rate FiO2 01/13/17 06:00 88 01/13/17 04:00 98.8 9 99/56 100 01/12/17 21:45 Non-Rebreather 12.00 01/11/17 11:57 21 Intake and Output 01/12/17 01/12/17 01/13/17 08:00 16:00 00:00 Intake Total 1050 ml 2650 ml 991 ml Output Total 1600 ml 1200 ml 450 ml Balance -550 ml 1450 ml 541 ml Result Diagram: 01/12/17 1456 01/12/17 0616 Imaging CXR -bibasilar pneumonia Objective Remarks GENERAL: Disheveled adult male who is sedated somnolent on Precedex SKIN: Warm diaphoretic. Multiple skin lesions on hand HEAD: Normocephalic. EYES: Pupils equal and round. No scleral icterus. No injection or drainage. ENT: No nasal bleeding or discharge. Mucous membranes pink and moist. On simple mask NECK: Supple without nuchal rigidity. CARDIOVASCULAR: Tachycardic, irregularly irregular rhythm, no murmur appreciated. RESPIRATORY: Mild expiratory wheezing throughout both lung reid. GASTROINTESTINAL: Abdomen soft, non-tender, slightly distended. Umbilical hernia noted. MUSCULOSKELETAL: Trace-1+ BLE edema. NEUROLOGICAL: Sedated with Precedex. Gets agitated intermittently. Answers some questions A/P Assessment and Plan Assessment and plan (system anderson) NEURO: Alcohol withdrawal syndrome Alcohol dependence Polysubstance abuse -Currently on [facility] protocol for alcohol withdrawal -Continue Precedex for alcohol withdrawal. Start scheduled Librium and wean to DC Precedex 01/13 -Supplement thiamine and multivitamin RESP: Acute hypoxemic respiratory failure Bibasilar pneumonia/aspiration Acute COPD exacerbation -Patient's hypoxia improving -Broad-spectrum antibiotics -DuoNeb every 6 hours scheduled and when necessary -IV Solu-Medrol 60 mg every 12 -Not a good BiPAP candidate due to alcohol withdrawal and altered mentation CV: Atrial fibrillation with RVR Chronic atrial fibrillation Hypertension -Normal saline IV fluids 2L bolus and 150 ml per hour -Off Cardizem infusion -currently on PO cardizem, continue metoprolol 2.5 mg every 6 hours scheduled IV -Attempt to avoid amiodarone due to liver cirrhosis -2d echo, Cardiology consulted by [facility]. Dr Irvin -No anticoagulation due to thrombocytopenia GI: Liver cirrhosis -Nothing by mouth except meds. IV Protonix gtt -Liver ultrasound. Ammonia level 37 -Start Lactulose -GI consult if Hb drops again : -Monitor renal function closely. Ellis catheter. ID: Severe sepsis Bibasilar pneumonia -Currently on broad-spectrum antibiotics with IV vancomycin and Zosyn. Azithromycin for atypical coverage -Follow up on blood culture, sputum culture HEME: Thrombocytopenia -Thrombocytopenia most likely related to liver disease and sepsis -Monitor CBC, CMP, INR ENDO: Hypokalemia -Electrolyte replacement per protocol PROPH: -Bilateral lower extremity SCDs. Avoid chemical prophylaxis due to thrombocytopenia. Protonix gtt LINES: -Utilize peripheral IVs, central line if needed CC time 35 min Johana Green MD Jan 13, 2017 09:01
--- NOTE | 2017-01-13 09:03 | RADRPT ---
EXAM DATE/TIME: 01/13/2017 08:27 [facility] COMPARISON: CHEST SINGLE AP, January 12, 2017, 8:24. INDICATIONS : Respiratory disease. MEDICAL HISTORY : Hypertension. Chronic obstructive pulmonary disease. Diabetes mellitus type 1. SURGICAL HISTORY : None. ENCOUNTER: Subsequent ACUITY: 4 - 6 days PAIN SCORE: Non-responsive. LOCATION: Bilateral chest FINDINGS: Portable AP view of the chest demonstrates cardiac silhouette size at the upper limits for normal. Th ere are bibasilar pleural-parenchymal opacities, right greater than left that have increased from the prior study. No pneumothorax is identified. The bones and soft tissues demonstrate no acute finding. CONCLUSION: 1. Mild interval increase in bibasilar airspace consolidation. 2. Small right pleural effusion. Peter Rodriguez MD on January 13, 2017 at 9:00 Board Certified Radiologist. This report was verified electronically.
[2017-01-13] MEDS: THIAMINE INJ 100 MG in SODIUM CHLORIDE 0.9% INJ 100 ML IV SCH (09:37)
[2017-01-13] MEDS: methylPREDNISolone SOD SUCC 125 MG/2 ML VIAL IV PUSH SCH ×2 (09:38→20:22)
[2017-01-13] MEDS: FOLIC ACID 1 MG TAB PO SCH (09:38)
[2017-01-13] MEDS: MULTIVITAMIN TAB PO SCH (09:38)
[2017-01-13] MEDS: THIAMINE HCL 100 MG TAB PO SCH (09:38)
[2017-01-13] MEDS ORDERED: PHARMACY ORDERED LAB ONE (09:45)
[2017-01-13] MEDS: QUEtiapine FUMARATE 200 MG TAB PO SCH ×2 (11:04→11:12)
[2017-01-13] MEDS: AZITHROMYCIN INJ 500 MG in SODIUM CHLOR 0.9% 250 ML INJ 250 ML IV SCH (11:04)
[2017-01-13 11:28] LABS: AUTOMATED NEUTROPHIL # 6.3 TH/MM3 (1.8-7.7); BASOPHIL % 0.2 % (0.0-2.0); HEMATOCRIT 25.4 % (39.0-51.0); HEMO FLAGS AUTO DIFF; LYMPH % 5.6 % (9.0-44.0); LYMPHOCYTE # 0.4 TH/MM3 (1.0-4.8); MEAN CELL VOLUME 75.7 FL (80.0-100.0); MEAN CORPUSCULAR HEMOGLOBIN 24.7 PG (27.0-34.0); MEAN CORPUSCULAR HGB CONC 32.7 % (32.0-36.0); MONO % 2.5 % (0.0-8.0); NEUT % 91.7 % (16.0-70.0); PLATELET COUNT 67 TH/MM3 (150-450); RED BLOOD COUNT 3.36 MIL/MM3 (4.50-5.90); RED CELL DISTRIBUTION WIDTH 19.9 % (11.6-17.2); WHITE BLOOD COUNT 6.8 TH/MM3 (4.0-11.0)
[2017-01-13] MEDS: VANCOMYCIN INJ 1,750 MG in SODIUM CHLORID 0.9% 500 ML INJ 500 ML IV SCH ×2 (11:51→21:45)
[2017-01-13] MEDS: ALBUMIN HUMAN 25% 25 GM/100 ML BAGP IV SCH ×2 (11:51→12:54)
[2017-01-13 12:07] LABS: PLATELET ESTIMATE SMEAR LOW (NORMAL); PLATELET MORPHOLOGY NORMAL (NORMAL); ROULEAUX PRESENT (NORMAL); SCAN/DIFF AUTO DIFF CONFIRMED
[2017-01-13 12:30] LABS: ALKALINE PHOSPHATASE 91 U/L (45-117); ALT (GPT) 53 U/L (12-78); ANION GAP 9 MEQ/L (5-15); AST (GOT) 64 U/L (15-37); BICARBONATE 21.6 MEQ/L (21.0-32.0); BLOOD UREA NITROGEN 22 MG/DL (7-18); CHLORIDE 105 MEQ/L (98-107); MAGNESIUM 1.6 MG/DL (1.5-2.5); POTASSIUM 3.4 MEQ/L (3.5-5.1); SODIUM (NA) 136 MEQ/L (136-145)
[2017-01-13 12:31] LABS: GLOMERULAR FILTRATION RATE 82 ML/MIN (>89)
[2017-01-13 13:18] LABS: INTERNATIONAL NORMALIZED RATIO 1.2 RATIO; PROTHROMBIN TIME - PATIENT 13.9 SEC (9.8-11.6)
--- NOTE | 2017-01-13 13:32 | PD.CARD.PN ---
Subjective Subjective Remarks No chest pain, no shortness of breath Awake and alert today Objective Medications Current Medications Medications (Trade) Dose Ordered Sig/Yi Route Start Time Stop Time Status Last Admin (Cardizem Inj/NS Inj) 125 ml @ 0 mls/hr TITRATE IV 01/11/17 08:00 01/12/17 21:32 (Romazicon Inj) 0.2 mg Q1M PRN IV PUSH 01/11/17 09:15 (Ativan) 1 mg Q4H PRN PO 01/11/17 09:15 (Ativan Inj) 1 mg Q4H PRN IV PUSH 01/11/17 09:15 01/11/17 11:19 (Ativan) 2 mg Q2H PRN PO 01/11/17 09:15 (Ativan Inj) 2 mg Q2H PRN IV PUSH 01/11/17 09:15 01/12/17 12:30 (Ativan Inj) 2 mg Q1H PRN IV PUSH 01/11/17 09:15 (Ativan Inj) 2 mg Q15M PRN IV PUSH 01/11/17 09:15 (SEROquel) 200 mg DAILY PO 01/12/17 09:00 01/13/17 11:12 (NS Flush) 2 ml UNSCH PRN IV FLUSH 01/11/17 12:00 (NS Flush) 2 ml BID IV FLUSH 01/11/17 21:00 01/13/17 09:00 (Tylenol) 650 mg Q4H PRN PO 01/11/17 12:00 (Zofran Inj) 4 mg Q6H PRN IVP 01/11/17 12:00 (Colace) 100 mg Q12H PO 01/11/17 12:00 01/13/17 01:31 (Senokot) 17.2 mg Q12H PRN PO 01/11/17 12:00 (Tylenol) 650 mg Q6H PRN PO 01/11/17 12:00 (Roxicodone) 10 mg Q4H PRN PO 01/11/17 12:00 (Roxicodone) 5 mg Q4H PRN PO 01/11/17 12:00 (Narcan Inj) 0.4 mg UNSCH PRN IV 01/11/17 12:00 Diltiazem HCl 60 mg 60 mg QID PO 01/11/17 13:00 01/13/17 10:25 Piperacillin Sod/ Tazobactam Sod 100 ml @ 200 mls/hr Q6H IV 01/11/17 15:00 01/13/17 09:37 (Vancomycin Consult Pharmacy) 0 ml @ 0 mls/hr UNSCH OTHER 01/11/17 12:30 (Theragran) 1 tab DAILY PO 01/11/17 13:00 01/13/17 09:38 (Vitamin B1) 100 mg DAILY PO 01/11/17 13:00 01/13/17 09:38 Folic Acid 1 mg 1 mg DAILY PO 01/11/17 13:00 01/13/17 09:38 (Zithromax Inj/ NS 250 ml Inj) 250 ml @ 250 mls/hr Q24H IV 01/12/17 11:00 01/13/17 11:04 (Lopressor Inj) 2.5 mg Q6HR IV PUSH 01/12/17 12:00 01/13/17 06:36 Methylprednisolone Sodium Succinate 60 mg 60 mg Q12HR IV PUSH 01/12/17 21:00 01/13/17 09:38 Thiamine HCl 100 mg/Sodium Chloride 101 ml @ 101 mls/hr DAILY IV 01/12/17 12:00 01/13/17 09:37 Potassium Chloride 100 ml @ 50 mls/hr Q2H PRN IV 01/12/17 14:00 (KCl 20 Meq Premix Inj) 100 ml @ 50 mls/hr Q2H PRN IV 01/12/17 14:00 Potassium Bicarb/ Potassium Chloride 50 meq 50 meq UNSCH PRN PO 01/12/17 14:00 Potassium Chloride 100 ml @ 25 mls/hr UNSCH PRN IV 01/12/17 14:00 Potassium Chloride 100 ml @ 50 mls/hr Q2H PRN IV 01/12/17 14:00 (Magnesium Sulfate Inj/NS Inj) 100 ml @ 50 mls/hr UNSCH PRN IV 01/12/17 14:00 Magnesium Oxide 800 mg 800 mg UNSCH PRN PO 01/12/17 14:00 (Magnesium Sulfate Inj/NS Inj) 100 ml @ 50 mls/hr UNSCH PRN IV 01/12/17 14:00 Potassium Phosphate 2000 mg 2,000 mg Q4H PRN PO 01/12/17 14:00 (Sodium Phosphate Inj/NS 250 ml Inj) 250 ml @ 42 mls/hr UNSCH PRN IV 01/12/17 14:00 Potassium Phosphate 2000 mg 2,000 mg UNSCH PRN PO/TUBE 01/12/17 14:00 Potassium Phosphate 30 mmol/ Sodium Chloride 260 ml @ 42 mls/hr UNSCH PRN IV 01/12/17 14:00 Pantoprazole Sodium 80 mg/ Sodium Chloride 100 ml @ 10 mls/hr Q10H IV 01/12/17 15:00 01/13/17 01:16 (Vancomycin Inj/ NS 500 ml Inj) 517.5 ml @ 250 mls/hr Q12H IV 01/12/17 22:00 01/13/17 11:51 (Librium) 25 mg TID PO 01/13/17 13:00 (Albumin 25% Inj) 25 gm Q2H IV 01/13/17 12:00 01/13/17 14:01 01/13/17 12:54 Vital Signs / I&O Vital Signs Date Time Temp Pulse Resp B/P Pulse Ox O2 Delivery O2 Flow Rate FiO2 01/13/17 09:20 98 Nasal Cannula 3.00 01/13/17 06:00 88 01/13/17 04:00 98.8 86 9 99/56 100 01/13/17 04:00 86 01/13/17 02:00 82 01/13/17 00:00 99.0 83 10 98/61 100 01/13/17 00:00 83 01/12/17 22:00 82 01/12/17 21:45 100 Non-Rebreather 12.00 01/12/17 20:00 84 01/12/17 20:00 99.3 84 11 104/60 100 01/12/17 19:00 80 01/12/17 18:00 82 01/12/17 17:22 100 Partial Rebreather 15.00 01/12/17 17:00 80 01/12/17 16:00 82 01/12/17 15:00 98.8 103 22 126/83 92 01/12/17 15:00 82 01/12/17 14:00 82 I/O 01/12/17 01/12/17 01/12/17 01/13/17 01/13/17 01/13/17 07:00 15:00 23:00 07:00 15:00 23:00 Intake Total 1050 ml 2650 ml 991 ml 926 ml Output Total 1600 ml 1200 ml 450 ml 450 ml Balance -550 ml 1450 ml 541 ml 476 ml Intake Oral 420 ml 150 ml 100 ml 50 ml IV Total 630 ml 2500 ml 891 ml 876 ml Output Urine Total 1600 ml 1200 ml 450 ml 450 ml Physical Exam GENERAL: NAD, AAOx3 SKIN: Warm and dry. HEAD: Atraumatic. Normocephalic. EYES: Pupils equal and round. No scleral icterus. No injection or drainage. ENT: No nasal bleeding or discharge. Mucous membranes pink and moist. NECK: Trachea midline. No JVD. CARDIOVASCULAR: Irregularly irregular RESPIRATORY: No accessory muscle use. Decreased breath sounds bilaterally GASTROINTESTINAL: Abdomen soft, non-tender, nondistended. Hepatic and splenic margins not palpable. MUSCULOSKELETAL: Extremities without clubbing, cyanosis, or edema. No obvious deformities. NEUROLOGICAL: Awake and alert. No obvious cranial nerve deficits. Motor grossly within normal limits. Five out of 5 muscle strength in the arms and legs. Normal speech. PSYCHIATRIC: Appropriate mood and affect; insight and judgment normal. Laboratory Laboratory Tests Test 01/12/17 01/12/17 01/12/17 01/13/17 14:56 14:57 15:44 00:00 White Blood Count 7.8 TH/MM3 Red Blood Count 3.24 MIL/MM3 Hemoglobin 8.2 GM/DL Hematocrit 24.2 % Mean Corpuscular Volume 74.8 FL Mean Corpuscular Hemoglobin 25.2 PG Mean Corpuscular Hemoglobin 33.7 % Concent Red Cell Distribution Width 20.1 % Platelet Count 52 TH/MM3 Mean Platelet Volume 9.1 FL Neutrophils (%) (Auto) 95.1 % Lymphocytes (%) (Auto) 3.2 % Monocytes (%) (Auto) 1.2 % Eosinophils (%) (Auto) 0.1 % Basophils (%) (Auto) 0.4 % Neutrophils # (Auto) 7.4 TH/MM3 Lymphocytes # (Auto) 0.2 TH/MM3 Monocytes # (Auto) 0.1 TH/MM3 Eosinophils # (Auto) 0.0 TH/MM3 Basophils # (Auto) 0.0 TH/MM3 CBC Comment AUTO DIFF Differential Comment AUTO DIFF CONFIRMED Platelet Estimate LOW Platelet Morphology Comment NORMAL Phosphorus Level 2.4 MG/DL Blood Type O POSITIVE O POSITIVE Antibody Screen NEGATIVE Crossmatch Leukocyte-Reduced Red Blood Cells Blood Bank Comment Sodium Level 136 MEQ/L Potassium Level 3.4 MEQ/L Chloride Level 105 MEQ/L Carbon Dioxide Level 21.6 MEQ/L Anion Gap 9 MEQ/L Blood Urea Nitrogen 22 MG/DL Creatinine 0.96 MG/DL Estimat Glomerular Filtration 82 ML/MIN Rate Random Glucose 207 MG/DL Calcium Level 7.6 MG/DL Magnesium Level 1.6 MG/DL Total Bilirubin 1.0 MG/DL Aspartate Amino Transf 64 U/L (AST/SGOT) Alanine Aminotransferase 53 U/L (ALT/SGPT) Alkaline Phosphatase 91 U/L Total Protein 7.3 GM/DL Albumin 1.8 GM/DL Test 01/13/17 01/13/17 11:09 12:39 White Blood Count 6.8 TH/MM3 Red Blood Count 3.36 MIL/MM3 Hemoglobin 8.3 GM/DL Hematocrit 25.4 % Mean Corpuscular Volume 75.7 FL Mean Corpuscular Hemoglobin 24.7 PG Mean Corpuscular Hemoglobin 32.7 % Concent Red Cell Distribution Width 19.9 % Platelet Count 67 TH/MM3 Mean Platelet Volume 9.0 FL Neutrophils (%) (Auto) 91.7 % Lymphocytes (%) (Auto) 5.6 % Monocytes (%) (Auto) 2.5 % Eosinophils (%) (Auto) 0.0 % Basophils (%) (Auto) 0.2 % Neutrophils # (Auto) 6.3 TH/MM3 Lymphocytes # (Auto) 0.4 TH/MM3 Monocytes # (Auto) 0.2 TH/MM3 Eosinophils # (Auto) 0.0 TH/MM3 Basophils # (Auto) 0.0 TH/MM3 CBC Comment AUTO DIFF Differential Comment AUTO DIFF CONFIRMED Platelet Estimate LOW Platelet Morphology Comment NORMAL Rouleau PRESENT Ammonia 45 MCMOL/L Vancomycin Level Trough 16.0 MCG/ML Prothrombin Time 13.9 SEC Prothromb Time International 1.2 RATIO Ratio Assessment and Plan Problem List: (1) Atrial fibrillation with RVR (2) Thrombocytopenia (3) Sepsis (4) Anemia (5) Alcoholism (6) Cirrhosis of liver (7) Shortness of breath (8) Alcohol abuse (9) Cellulitis of right hand Assessment and Plan 1) Afib with RVR, Cardizem drip turned off over night, but not started on Cardizem PO until this morning... mildly rapid, will see if PO slows him down, if not may need a dose of digoxin 2) Will avoid Amiodarone with cirrhosis/ETOH history 3) Not an anticoagulation candidate due to thrombocytopenia 4) May be going through ETOH withdrawal leading to Afib with RVR 5) Will see PRN, call with questions Problem Qualifiers (1) Sepsis: Qualified Code: A41.9 - Sepsis, due to unspecified organism Xavi Rich DO Jan 13, 2017 13:32
[2017-01-13] MEDS: chlordiazePOXIDE 25 MG CAP PO SCH ×2 (13:42→17:14)
[2017-01-13] MEDS ORDERED: DIGOXIN 0.5 MG/2 ML VIAL IV PUSH ONE ×2 (15:00→22:15)
[2017-01-13] MEDS: DILTIAZEM INJ 125 MG in SODIUM CHLORIDE 0.9% INJ 100 ML IV SCH ×2 (17:51→21:11)
[2017-01-13] MEDS: LORazepam 2 MG/ML VIAL IV PUSH PRN ×2 (21:30→23:27)
[2017-01-13] MEDS ORDERED: METOPROLOL TARTRATE 5 MG/5 ML VIAL IV PUSH ONE (22:15)
[2017-01-13] MEDS: MAGNESIUM SULFATE 1 GM PREMIX 100 ML IV SCH ×2 (22:33→23:27)
[2017-01-14] VITALS (14 sets, daily range): BP systolic 102–126; BP diastolic 60–79; PULSE 81–108; RESP 10–19; TEMP 97.9–98.7; O2SAT 95–98
[2017-01-14] MEDS: LORazepam 2 MG/ML VIAL IV PUSH PRN ×3 (00:46→02:53)
[2017-01-14] MEDS: PIPERACIL-TAZO 4.5 GM PREMIX 100 ML IV SCH ×4 (02:13→21:16)
[2017-01-14] MEDS ORDERED: DEXMEDETOMIDINE INJ 200 MCG in SODIUM CHLORIDE 0.9% INJ 50 ML IV SCH (02:30)
[2017-01-14] MEDS: RESP: ALBUTEROL 2.5 MG/IPRATROPIUM 0.5 MG NEB (SCH) NEB ×4 (03:40→20:50)
[2017-01-14] MEDS: DEXMEDETOMIDINE INJ 1,000 MCG in SODIUM CHLOR 0.9% 250 ML INJ 240 ML IV SCH ×2 (03:43→12:29)
[2017-01-14] MEDS: DILTIAZEM INJ 125 MG in SODIUM CHLORIDE 0.9% INJ 100 ML IV SCH ×3 (03:44→21:20)
[2017-01-14] MEDS: METOPROLOL TARTRATE 5 MG/5 ML VIAL IV PUSH SCH ×3 (04:58→18:26)
[2017-01-14 06:23] LABS: AUTOMATED NEUTROPHIL # 7.4 TH/MM3 (1.8-7.7); BASOPHIL % 0.2 % (0.0-2.0); HEMATOCRIT 24.1 % (39.0-51.0); LYMPH % 3.2 % (9.0-44.0); LYMPHOCYTE # 0.2 TH/MM3 (1.0-4.8); MEAN CELL VOLUME 75.8 FL (80.0-100.0); MEAN CORPUSCULAR HEMOGLOBIN 24.6 PG (27.0-34.0); MEAN CORPUSCULAR HGB CONC 32.5 % (32.0-36.0); MONO % 3.3 % (0.0-8.0); NEUT % 93.3 % (16.0-70.0); PLATELET COUNT 65 TH/MM3 (150-450); RED BLOOD COUNT 3.18 MIL/MM3 (4.50-5.90); RED CELL DISTRIBUTION WIDTH 19.9 % (11.6-17.2); WHITE BLOOD COUNT 7.9 TH/MM3 (4.0-11.0)
[2017-01-14 06:29] LABS: HEMO FLAGS AUTO DIFF
[2017-01-14 06:50] LABS: ANION GAP 9 MEQ/L (5-15); AST (GOT) 69 U/L (15-37); BICARBONATE 21.6 MEQ/L (21.0-32.0); BLOOD UREA NITROGEN 33 MG/DL (7-18); CHLORIDE 104 MEQ/L (98-107); GLOMERULAR FILTRATION RATE 64 ML/MIN (>89); MAGNESIUM 2.2 MG/DL (1.5-2.5); SODIUM (NA) 135 MEQ/L (136-145)
[2017-01-14 07:05] LABS: ALKALINE PHOSPHATASE 103 U/L (45-117); ALT (GPT) 60 U/L (12-78); DIGOXIN 0.8 NG/ML (0.8-2.0)
[2017-01-14 07:37] LABS: PLATELET ESTIMATE SMEAR LOW (NORMAL); PLATELET MORPHOLOGY NORMAL (NORMAL); SCAN/DIFF AUTO DIFF CONFIRMED
[2017-01-14] MEDS ORDERED: DIGOXIN 0.5 MG/2 ML VIAL IVS STA (08:18)
--- NOTE | 2017-01-14 08:18 | PD.CARD.PN ---
Subjective Subjective Remarks No events over night, started back on Cardizem gtt yesterday Somnolent, no chest pain, no shortness of breath Objective Medications Current Medications Medications (Trade) Dose Ordered Sig/Yi Route Start Time Stop Time Status Last Admin (Cardizem Inj/NS Inj) 125 ml @ 0 mls/hr TITRATE IV 01/11/17 08:00 01/14/17 03:44 (Romazicon Inj) 0.2 mg Q1M PRN IV PUSH 01/11/17 09:15 (Ativan) 1 mg Q4H PRN PO 01/11/17 09:15 (Ativan Inj) 1 mg Q4H PRN IV PUSH 01/11/17 09:15 01/11/17 11:19 (Ativan) 2 mg Q2H PRN PO 01/11/17 09:15 (Ativan Inj) 2 mg Q2H PRN IV PUSH 01/11/17 09:15 01/14/17 02:53 (Ativan Inj) 2 mg Q1H PRN IV PUSH 01/11/17 09:15 (Ativan Inj) 2 mg Q15M PRN IV PUSH 01/11/17 09:15 01/14/17 02:13 (SEROquel) 200 mg DAILY PO 01/12/17 09:00 01/13/17 11:12 (NS Flush) 2 ml UNSCH PRN IV FLUSH 01/11/17 12:00 (NS Flush) 2 ml BID IV FLUSH 01/11/17 21:00 01/13/17 20:22 (Tylenol) 650 mg Q4H PRN PO 01/11/17 12:00 (Zofran Inj) 4 mg Q6H PRN IVP 01/11/17 12:00 (Colace) 100 mg Q12H PO 01/11/17 12:00 01/13/17 23:27 (Senokot) 17.2 mg Q12H PRN PO 01/11/17 12:00 (Tylenol) 650 mg Q6H PRN PO 01/11/17 12:00 (Roxicodone) 10 mg Q4H PRN PO 01/11/17 12:00 (Roxicodone) 5 mg Q4H PRN PO 01/11/17 12:00 (Narcan Inj) 0.4 mg UNSCH PRN IV 01/11/17 12:00 Diltiazem HCl 60 mg 60 mg QID PO 01/11/17 13:00 01/13/17 20:22 Piperacillin Sod/ Tazobactam Sod 100 ml @ 200 mls/hr Q6H IV 01/11/17 15:00 01/14/17 02:13 (Vancomycin Consult Pharmacy) 0 ml @ 0 mls/hr UNSCH OTHER 01/11/17 12:30 (Theragran) 1 tab DAILY PO 01/11/17 13:00 01/13/17 09:38 (Vitamin B1) 100 mg DAILY PO 01/11/17 13:00 01/13/17 09:38 Folic Acid 1 mg 1 mg DAILY PO 01/11/17 13:00 01/13/17 09:38 (Zithromax Inj/ NS 250 ml Inj) 250 ml @ 250 mls/hr Q24H IV 01/12/17 11:00 01/13/17 11:04 (Lopressor Inj) 2.5 mg Q6HR IV PUSH 01/12/17 12:00 01/14/17 04:58 Methylprednisolone Sodium Succinate 60 mg 60 mg Q12HR IV PUSH 01/12/17 21:00 01/13/17 20:22 Thiamine HCl 100 mg/Sodium Chloride 101 ml @ 101 mls/hr DAILY IV 01/12/17 12:00 01/13/17 09:37 Potassium Chloride 100 ml @ 50 mls/hr Q2H PRN IV 01/12/17 14:00 (KCl 20 Meq Premix Inj) 100 ml @ 50 mls/hr Q2H PRN IV 01/12/17 14:00 Potassium Bicarb/ Potassium Chloride 50 meq 50 meq UNSCH PRN PO 01/12/17 14:00 01/13/17 21:41 Potassium Chloride 100 ml @ 25 mls/hr UNSCH PRN IV 01/12/17 14:00 Potassium Chloride 100 ml @ 50 mls/hr Q2H PRN IV 01/12/17 14:00 (Magnesium Sulfate Inj/NS Inj) 100 ml @ 50 mls/hr UNSCH PRN IV 01/12/17 14:00 Magnesium Oxide 800 mg 800 mg UNSCH PRN PO 01/12/17 14:00 (Magnesium Sulfate Inj/NS Inj) 100 ml @ 50 mls/hr UNSCH PRN IV 01/12/17 14:00 Potassium Phosphate 2000 mg 2,000 mg Q4H PRN PO 01/12/17 14:00 (Sodium Phosphate Inj/NS 250 ml Inj) 250 ml @ 42 mls/hr UNSCH PRN IV 01/12/17 14:00 Potassium Phosphate 2000 mg 2,000 mg UNSCH PRN PO/TUBE 01/12/17 14:00 Potassium Phosphate 30 mmol/ Sodium Chloride 260 ml @ 42 mls/hr UNSCH PRN IV 01/12/17 14:00 (Vancomycin Inj/ NS 500 ml Inj) 517.5 ml @ 250 mls/hr Q12H IV 01/12/17 22:00 01/13/17 21:45 Chlordiazepoxide 25 mg 25 mg TID PO 01/13/17 13:00 01/13/17 17:14 (Precedex Inj/NS 250 ml Inj) 250 ml @ 0 mls/hr TITRATE IV 01/14/17 02:45 01/14/17 03:43 Vital Signs / I&O Vital Signs Date Time Temp Pulse Resp B/P Pulse Ox O2 Delivery O2 Flow Rate FiO2 01/14/17 06:00 82 01/14/17 04:00 98.4 81 12 102/62 97 01/14/17 04:00 81 01/14/17 02:00 108 01/14/17 00:00 98.7 103 19 114/74 96 01/14/17 00:00 103 01/13/17 22:00 171 01/13/17 20:57 97 21 01/13/17 20:00 99.0 121 18 102/66 93 01/13/17 20:00 121 01/13/17 18:00 166 01/13/17 16:00 162 01/13/17 16:00 97.5 162 28 105/56 92 01/13/17 14:00 158 01/13/17 12:00 146 01/13/17 12:00 97.5 146 17 86/53 98 01/13/17 10:00 102 01/13/17 09:20 98 Nasal Cannula 3.00 I/O 01/13/17 01/13/17 01/13/17 01/14/17 01/14/17 01/14/17 07:00 15:00 23:00 07:00 15:00 23:00 Intake Total 926 ml 3437 ml 1075 ml 1596 ml Output Total 450 ml 200 ml 450 ml 750 ml Balance 476 ml 3237 ml 625 ml 846 ml Intake Oral 50 ml 2220 ml 240 ml 240 ml IV Total 876 ml 1217 ml 835 ml 1356 ml Output Urine Total 450 ml 200 ml 450 ml 750 ml Stool Total 0 ml Physical Exam GENERAL: NAD, AAOx3 SKIN: Warm and dry. HEAD: Atraumatic. Normocephalic. EYES: Pupils equal and round. No scleral icterus. No injection or drainage. ENT: No nasal bleeding or discharge. Mucous membranes pink and moist. NECK: Trachea midline. No JVD. CARDIOVASCULAR: Irregularly irregular RESPIRATORY: No accessory muscle use. Decreased breath sounds bilaterally GASTROINTESTINAL: Abdomen soft, non-tender, nondistended. Hepatic and splenic margins not palpable. MUSCULOSKELETAL: Extremities without clubbing, cyanosis, or edema. No obvious deformities. NEUROLOGICAL: Awake and alert. No obvious cranial nerve deficits. Motor grossly within normal limits. Five out of 5 muscle strength in the arms and legs. Normal speech. PSYCHIATRIC: Appropriate mood and affect; insight and judgment normal. Laboratory Laboratory Tests Test 01/13/17 01/13/17 01/14/17 11:09 12:39 05:31 White Blood Count 6.8 TH/MM3 7.9 TH/MM3 Red Blood Count 3.36 MIL/MM3 3.18 MIL/MM3 Hemoglobin 8.3 GM/DL 7.8 GM/DL Hematocrit 25.4 % 24.1 % Mean Corpuscular Volume 75.7 FL 75.8 FL Mean Corpuscular Hemoglobin 24.7 PG 24.6 PG Mean Corpuscular Hemoglobin 32.7 % 32.5 % Concent Red Cell Distribution Width 19.9 % 19.9 % Platelet Count 67 TH/MM3 65 TH/MM3 Mean Platelet Volume 9.0 FL 9.0 FL Neutrophils (%) (Auto) 91.7 % 93.3 % Lymphocytes (%) (Auto) 5.6 % 3.2 % Monocytes (%) (Auto) 2.5 % 3.3 % Eosinophils (%) (Auto) 0.0 % 0.0 % Basophils (%) (Auto) 0.2 % 0.2 % Neutrophils # (Auto) 6.3 TH/MM3 7.4 TH/MM3 Lymphocytes # (Auto) 0.4 TH/MM3 0.2 TH/MM3 Monocytes # (Auto) 0.2 TH/MM3 0.3 TH/MM3 Eosinophils # (Auto) 0.0 TH/MM3 0.0 TH/MM3 Basophils # (Auto) 0.0 TH/MM3 0.0 TH/MM3 CBC Comment AUTO DIFF AUTO DIFF Differential Comment AUTO DIFF AUTO DIFF CONFIRMED CONFIRMED Platelet Estimate LOW LOW Platelet Morphology Comment NORMAL NORMAL Rouleau PRESENT Ammonia 45 MCMOL/L Vancomycin Level Trough 16.0 MCG/ML Prothrombin Time 13.9 SEC Prothromb Time International 1.2 RATIO Ratio Sodium Level 135 MEQ/L Potassium Level 4.0 MEQ/L Chloride Level 104 MEQ/L Carbon Dioxide Level 21.6 MEQ/L Anion Gap 9 MEQ/L Blood Urea Nitrogen 33 MG/DL Creatinine 1.18 MG/DL Estimat Glomerular Filtration 64 ML/MIN Rate Random Glucose 168 MG/DL Calcium Level 8.2 MG/DL Magnesium Level 2.2 MG/DL Total Bilirubin 1.0 MG/DL Aspartate Amino Transf 69 U/L (AST/SGOT) Alanine Aminotransferase 60 U/L (ALT/SGPT) Alkaline Phosphatase 103 U/L Total Protein 8.1 GM/DL Albumin 2.6 GM/DL Digoxin Level 0.8 NG/ML Assessment and Plan Problem List: (1) Atrial fibrillation with RVR (2) Thrombocytopenia (3) Sepsis (4) Anemia (5) Alcoholism (6) Cirrhosis of liver (7) Shortness of breath (8) Alcohol abuse (9) Cellulitis of right hand Assessment and Plan 1) Afib with RVR yesterday after stopping Cardizem and Precedex drips, restarted at 20mg/hour... will increase Cardizem PO dose and two doses of digoxin, will attempt to avoid digoxin mcc 2) Will avoid Amiodarone with cirrhosis/ETOH history 3) Not an anticoagulation candidate due to thrombocytopenia 4) May be going through ETOH withdrawal leading to Afib with RVR Problem Qualifiers (1) Sepsis: Qualified Code: A41.9 - Sepsis, due to unspecified organism Xavi Rich DO Jan 14, 2017 08:18
[2017-01-14] MEDS: THIAMINE HCL 100 MG TAB PO SCH (09:00)
[2017-01-14] MEDS: chlordiazePOXIDE 25 MG CAP PO SCH ×3 (09:00→18:00)
[2017-01-14] MEDS: MULTIVITAMIN TAB PO SCH (09:00)
[2017-01-14] MEDS: DILTIAZEM HCL 90 MG TAB PO SCH ×4 (09:00→21:19)
[2017-01-14] MEDS: QUEtiapine FUMARATE 200 MG TAB PO SCH (09:00)
[2017-01-14] MEDS: FOLIC ACID 1 MG TAB PO SCH (09:00)
[2017-01-14] MEDS ORDERED: PHARMACY ORDERED LAB ONE (09:45)
[2017-01-14] MEDS: methylPREDNISolone SOD SUCC 125 MG/2 ML VIAL IV PUSH SCH ×2 (10:10→21:17)
[2017-01-14] MEDS: VANCOMYCIN INJ 1,750 MG in SODIUM CHLORID 0.9% 500 ML INJ 500 ML IV SCH (10:11)
[2017-01-14] MEDS: AZITHROMYCIN INJ 500 MG in SODIUM CHLOR 0.9% 250 ML INJ 250 ML IV SCH (10:12)
[2017-01-14] MEDS: SODIUM CHLORIDE 0.9% FLUSH 10 ML FLUSH IV FLUSH PRN (10:13)
[2017-01-14] MEDS: SODIUM CHLORIDE 0.9% FLUSH 10 ML FLUSH IV FLUSH SCH ×2 (10:14→21:17)
[2017-01-14] MEDS: DOCUSATE SODIUM 100 MG CAP PO SCH (12:00)
[2017-01-14] MEDS: THIAMINE INJ 100 MG in SODIUM CHLORIDE 0.9% INJ 100 ML IV SCH (12:29)
--- NOTE | 2017-01-14 12:54 | HHI.CCPN ---
Subjective Remarks/Hospital Course Patient is a 52-year-old male with history of liver cirrhosis, continued alcohol abuse, alcohol dependence, COPD who presented to the hospital feeling unwell and also for possible skin infection involving his hands per admit note. He stated that he had been drinking up to 2 L of bourbon daily and stopped prior to the day of admission. Patient has history of alcohol withdrawal seizures also. Patient was admitted to the hospital service with A. fib with RVR, early alcohol withdrawal and sepsis secondary to pneumonia and cellulitis. Overnight patient was getting increasingly agitated today a.m. oxygen requirements went up to 8 L by simple mask. ABG showed PO2 on 8L was only 51. Chest x-ray today showed increasing bibasilar right more than left infiltrates. With hypoxemic respiratory failure, alcohol withdrawal patient was transferred to ICU and critical care medicine was consulted. I evaluated the patient in ICU. He is in moderate distress, intermittently agitated. He is currently in atrial fibrillation with rates varying from 140-170 on Cardizem drip. Additional 20 mg IV push of Cardizem and 5 mg IV push of metoprolol given and Cardizem infusion was increased to 20 mg per hour. Cannot anticoagulate with acute on chronic thrombocytopenia. I would also try to avoid amiodarone due to liver cirrhosis. 2-D echo shows normal ejection fraction and mild to moderate mitral regurgitation. SUBJ 01/13: Remains sedated with Precedex for alcohol withdrawal. Chest x-ray shows unchanged right more than left infiltrates. Lab work is pending today. CBC and known showed hemoglobin of 5.4 but repeat showed 8.2 and so no transfusion was given 01/14: Agitated delirium is overnight Precedex had to be restarted today morning Precedex is 1.4 g per KG per hour. RN starting to wean Precedex. Breathing comfortably. Platelets and hemoglobin stable Objective Vital Signs Date Time Temp Pulse Resp B/P Pulse Ox O2 Delivery O2 Flow Rate FiO2 01/14/17 09:18 97 01/14/17 06:00 82 01/14/17 04:00 98.4 12 102/62 01/13/17 20:57 21 01/13/17 09:20 Nasal Cannula 3.00 Intake and Output 01/13/17 01/13/17 01/14/17 08:00 16:00 00:00 Intake Total 926 ml 3437 ml 1075 ml Output Total 450 ml 200 ml 450 ml Balance 476 ml 3237 ml 625 ml Result Diagram: 01/14/17 0531 01/14/17 0531 Other Results Microbiology Date/Time Procedure Status Source Growth 01/12/17 08:10 Urine Culture - Final Complete Urine Catheterized Urine NO GROWTH IN 48 HOURS. Imaging CXR -bibasilar pneumonia Objective Remarks GENERAL: Disheveled adult male who is sedated somnolent on Precedex SKIN: Warm diaphoretic. Multiple skin lesions on hand HEAD: Normocephalic. EYES: Pupils equal and round. No scleral icterus. No injection or drainage. ENT: No nasal bleeding or discharge. Mucous membranes pink and moist. On NC NECK: Supple without nuchal rigidity. CARDIOVASCULAR: Tachycardic, irregularly irregular rhythm, no murmur appreciated. RESPIRATORY: Mild expiratory wheezing throughout both lung reid. GASTROINTESTINAL: Abdomen soft, non-tender, slightly distended. Umbilical hernia noted. MUSCULOSKELETAL: Trace-1+ BLE edema. NEUROLOGICAL: Sedated with Precedex. Gets agitated intermittently. Answers some questions, oriented to person and somewhat to place A/P Assessment and Plan Assessment and plan (system anderson) NEURO: Alcohol withdrawal syndrome Alcohol dependence Polysubstance abuse -Currently on CIWA protocol for alcohol withdrawal -Precedex for alcohol withdrawal. Scheduled Librium started 01/13 -Supplement thiamine and multivitamin -Blood pressure is low and this limits clonidine use RESP: Acute hypoxemic respiratory failure Bibasilar pneumonia/aspiration Acute COPD exacerbation -Patient's hypoxia improving -Broad-spectrum antibiotics -DuoNeb every 6 hours scheduled and when necessary -IV Solu-Medrol 60 mg every 12 -Not a good BiPAP candidate due to alcohol withdrawal and altered mentation CV: Atrial fibrillation with RVR Chronic atrial fibrillation Hypertension -Restarted on Cardizem infusion, continue PO cardizem, -Continue metoprolol 2.5 mg every 6 hours scheduled IV -Attempt to avoid amiodarone due to liver cirrhosis -2d echo Nl EF, mild to mod MR, Cardiology consulted by [facility]. Dr Irvin -No anticoagulation due to thrombocytopenia GI: Liver cirrhosis -Regular diet as tolerated. IV Protonix gtt -change to 40 twice a day -Liver ultrasound. Ammonia level 37 -Lactulose 30 ml q12 -GI consult if Hb drops again : -Monitor renal function closely. Ellis catheter. ID: Severe sepsis Bibasilar pneumonia -Currently on broad-spectrum antibiotics with IV vancomycin and Zosyn. Azithromycin for atypical coverage -Follow up on blood culture, sputum culture HEME: Thrombocytopenia -Thrombocytopenia most likely related to liver disease and sepsis -Monitor CBC, CMP, INR ENDO: Hypokalemia -Electrolyte replacement per protocol PROPH: -Bilateral lower extremity SCDs. Avoid chemical prophylaxis due to thrombocytopenia. Protonix gtt-cahnge to 40mg IV q12 LINES: -Utilize peripheral IVs, central line if needed CC time 32 min Johana Green MD Jan 14, 2017 12:54
[2017-01-14] MEDS ORDERED: DIGOXIN 0.5 MG/2 ML VIAL IVS SCH (15:00)
[2017-01-15] VITALS (14 sets, daily range): BP systolic 102–120; BP diastolic 55–69; PULSE 82–110; RESP 12–22; TEMP 97.5–98.7; O2SAT 91–100
[2017-01-15] MEDS: DOCUSATE SODIUM 100 MG CAP PO SCH ×2 (00:05→12:00)
[2017-01-15] MEDS: METOPROLOL TARTRATE 5 MG/5 ML VIAL IV PUSH SCH ×4 (00:05→19:27)
[2017-01-15] MEDS: PIPERACIL-TAZO 4.5 GM PREMIX 100 ML IV SCH ×4 (03:00→20:52)
[2017-01-15] MEDS: DILTIAZEM INJ 125 MG in SODIUM CHLORIDE 0.9% INJ 100 ML IV SCH (03:51)
[2017-01-15] MEDS: RESP: ALBUTEROL 2.5 MG/IPRATROPIUM 0.5 MG NEB (SCH) NEB ×4 (04:05→21:02)
[2017-01-15 05:14] LABS: AUTOMATED NEUTROPHIL # 4.4 TH/MM3 (1.8-7.7); BASOPHIL % 0.3 % (0.0-2.0); HEMATOCRIT 26.5 % (39.0-51.0); LYMPH % 4.3 % (9.0-44.0); LYMPHOCYTE # 0.2 TH/MM3 (1.0-4.8); MEAN CORPUSCULAR HEMOGLOBIN 24.8 PG (27.0-34.0); MEAN CORPUSCULAR HGB CONC 31.7 % (32.0-36.0); MONO % 4.6 % (0.0-8.0); NEUT % 90.8 % (16.0-70.0); PLATELET COUNT 68 TH/MM3 (150-450); RED CELL DISTRIBUTION WIDTH 20.5 % (11.6-17.2); WHITE BLOOD COUNT 4.9 TH/MM3 (4.0-11.0)
[2017-01-15 05:19] LABS: HEMO FLAGS AUTO DIFF
[2017-01-15 05:33] LABS: ANION GAP 9 MEQ/L (5-15); AST (GOT) 56 U/L (15-37); BICARBONATE 20.7 MEQ/L (21.0-32.0); BLOOD UREA NITROGEN 26 MG/DL (7-18); CHLORIDE 110 MEQ/L (98-107); GLOMERULAR FILTRATION RATE 88 ML/MIN (>89); MAGNESIUM 2.1 MG/DL (1.5-2.5); SODIUM (NA) 140 MEQ/L (136-145)
[2017-01-15 05:38] LABS: ALKALINE PHOSPHATASE 84 U/L (45-117); ALT (GPT) 58 U/L (12-78); TOTAL BILIRUBIN ADULT 0.8 MG/DL (0.2-1.0)
--- NOTE | 2017-01-15 06:20 | RADRPT ---
EXAM DATE/TIME: 01/15/2017 03:43 [place] COMPARISON: CHEST SINGLE AP, January 13, 2017, 8:27. INDICATIONS : Shortness of breath, possible pulmonary disease. MEDICAL HISTORY : Hypertension. Chronic obstructive pulmonary disease. Diabetes mellitus type II. SURGICAL HISTORY : None. ENCOUNTER: Subsequent ACUITY: 1 week PAIN SCORE: Non-responsive. LOCATION: Bilateral chest FINDINGS: The cardiac silhouette is enlarged in transverse diameter. There is improving pulmonary edema. Small bilateral pleural effusions are identified. CONCLUSION: 1. Cardiomegaly. Improving pulmonary edema. Jesus Miller MD on January 15, 2017 at 6:17 Board Certified Radiologist. This report was verified electronically.
[2017-01-15 07:48] LABS: PLATELET ESTIMATE SMEAR LOW (NORMAL); PLATELET MORPHOLOGY NORMAL (NORMAL); SCAN/DIFF AUTO DIFF CONFIRMED
[2017-01-15] MEDS: methylPREDNISolone SOD SUCC 125 MG/2 ML VIAL IV PUSH SCH ×2 (08:20→20:52)
[2017-01-15] MEDS: SODIUM CHLORIDE 0.9% FLUSH 10 ML FLUSH IV FLUSH SCH ×2 (08:20→20:51)
[2017-01-15] MEDS: SODIUM CHLORIDE 0.9% FLUSH 10 ML FLUSH IV FLUSH PRN (08:20)
[2017-01-15] MEDS: FOLIC ACID 1 MG TAB PO SCH (08:20)
[2017-01-15] MEDS: chlordiazePOXIDE 25 MG CAP PO SCH ×3 (08:20→19:28)
[2017-01-15] MEDS: DILTIAZEM HCL 90 MG TAB PO SCH ×4 (08:20→20:52)
[2017-01-15] MEDS: QUEtiapine FUMARATE 200 MG TAB PO SCH (08:21)
[2017-01-15] MEDS: MULTIVITAMIN TAB PO SCH (08:21)
[2017-01-15] MEDS: THIAMINE HCL 100 MG TAB PO SCH (08:21)
[2017-01-15] MEDS: DEXMEDETOMIDINE INJ 1,000 MCG in SODIUM CHLOR 0.9% 250 ML INJ 240 ML IV SCH (09:01)
[2017-01-15] MEDS: THIAMINE INJ 100 MG in SODIUM CHLORIDE 0.9% INJ 100 ML IV SCH (09:03)
--- NOTE | 2017-01-15 11:12 | PD.CARD.PN ---
Subjective Subjective Remarks Rate controlled afib on dilt ggt, withdrawing from etoh Objective Medications Administered Medications Medications (Trade) Dose Ordered Sig/Yi Route PRN Reason Start Time Stop Time Status Last Admin Dose Admin Diltiazem HCl/ Sodium Chloride (Cardizem Inj/NS Inj) 125 ml @ 0 mls/hr TITRATE IV 01/11/17 08:00 01/15/17 03:51 Lorazepam (Ativan Inj) 1 mg Q4H PRN IV PUSH CIWA 8 - 10 01/11/17 09:15 01/11/17 11:19 Lorazepam (Ativan Inj) 2 mg Q2H PRN IV PUSH CIWA 11-14 01/11/17 09:15 01/14/17 02:53 Lorazepam (Ativan Inj) 2 mg Q15M PRN IV PUSH CIWA > 20 01/11/17 09:15 01/14/17 02:13 Quetiapine Fumarate (SEROquel) 200 mg DAILY PO 01/12/17 09:00 01/15/17 08:21 Sodium Chloride (NS Flush) 2 ml UNSCH PRN IV FLUSH FLUSH AFTER USING IV ACCESS 01/11/17 12:00 01/15/17 08:20 Sodium Chloride (NS Flush) 2 ml BID IV FLUSH 01/11/17 21:00 01/15/17 08:20 Docusate Sodium 100 mg 100 mg Q12H PO 01/11/17 12:00 01/15/17 00:05 Piperacillin Sod/ Tazobactam Sod (Zosyn 4.5 Gm Premix) 100 ml @ 200 mls/hr Q6H IV 01/11/17 15:00 01/15/17 08:19 Multivitamins (Theragran) 1 tab DAILY PO 01/11/17 13:00 01/15/17 08:21 Thiamine HCl (Vitamin B1) 100 mg DAILY PO 01/11/17 13:00 01/15/17 08:21 Folic Acid 1 mg 1 mg DAILY PO 01/11/17 13:00 01/15/17 08:20 Azithromycin/ Sodium Chloride (Zithromax Inj/ NS 250 ml Inj) 250 ml @ 250 mls/hr Q24H IV 01/12/17 11:00 01/14/17 10:12 Metoprolol Tartrate (Lopressor Inj) 2.5 mg Q6HR IV PUSH 01/12/17 12:00 01/15/17 05:20 Methylprednisolone Sodium Succinate 60 mg 60 mg Q12HR IV PUSH 01/12/17 21:00 01/15/17 08:20 Thiamine HCl/ Sodium Chloride (Thiamine Inj/NS Inj) 101 ml @ 101 mls/hr DAILY IV 01/12/17 12:00 01/15/17 09:03 Potassium Bicarb/ Potassium Chloride (K-Lyte Cl Eff) 50 meq UNSCH PRN PO For Potassium 3.3 - 3.5 mEq/L 01/12/17 14:00 01/13/17 21:41 Chlordiazepoxide 25 mg 25 mg TID PO 01/13/17 13:00 01/15/17 08:20 Dexmedetomidine HCl/Sodium Chloride (Precedex Inj/NS 250 ml Inj) 250 ml @ 0 mls/hr TITRATE IV 01/14/17 02:45 01/15/17 09:01 Diltiazem HCl (Cardizem) 90 mg QID PO 01/14/17 09:00 01/15/17 08:20 Vital Signs / I&O Vital Signs Date Time Temp Pulse Resp B/P Pulse Ox O2 Delivery O2 Flow Rate FiO2 01/15/17 10:00 83 01/15/17 09:40 95 01/15/17 08:00 97.5 89 16 120/68 91 01/15/17 08:00 91 01/15/17 06:00 92 01/15/17 04:00 98.5 86 12 118/69 98 01/15/17 04:00 86 01/15/17 02:00 92 01/15/17 00:00 94 01/15/17 00:00 98.7 94 12 120/69 97 01/14/17 22:00 94 01/14/17 20:50 98 21 01/14/17 20:00 98.4 95 12 118/79 96 01/14/17 20:00 95 01/14/17 18:00 100 01/14/17 16:00 95 01/14/17 16:00 98.7 95 10 124/60 96 01/14/17 14:00 90 01/14/17 12:00 95 01/14/17 12:00 98.4 95 11 126/78 95 I/O 4/01/14/17 01/14/17 01/15/17 01/15/17 01/15/17 07:00 15:00 23:00 07:00 15:00 23:00 Intake Total 1596 ml 981 ml 1188 ml 623 ml Output Total 750 ml 1450 ml 750 ml 525 ml Balance 846 ml -469 ml 438 ml 98 ml Intake Oral 240 ml 0 ml 120 ml 120 ml IV Total 1356 ml 981 ml 1068 ml 503 ml Output Urine Total 750 ml 1450 ml 750 ml 525 ml Stool Total 0 ml Physical Exam GENERAL: appears in etoh w/d's CARDIOVASCULAR: Regular rate and irregular rhythm without murmurs, gallops, or rubs. RESPIRATORY: wheezes all reid GASTROINTESTINAL: Abdomen soft, non-tender, nondistended. Normal, active bowel sounds MUSCULOSKELETAL: Extremities without clubbing, cyanosis, or edema. NEURO: appears in etoh w/d's Laboratory Laboratory Tests Test 01/15/17 03:42 White Blood Count 4.9 TH/MM3 Red Blood Count 3.40 MIL/MM3 Hemoglobin 8.4 GM/DL Hematocrit 26.5 % Mean Corpuscular Volume 78.0 FL Mean Corpuscular Hemoglobin 24.8 PG Mean Corpuscular Hemoglobin 31.7 % Concent Red Cell Distribution Width 20.5 % Platelet Count 68 TH/MM3 Mean Platelet Volume 9.1 FL Neutrophils (%) (Auto) 90.8 % Lymphocytes (%) (Auto) 4.3 % Monocytes (%) (Auto) 4.6 % Eosinophils (%) (Auto) 0.0 % Basophils (%) (Auto) 0.3 % Neutrophils # (Auto) 4.4 TH/MM3 Lymphocytes # (Auto) 0.2 TH/MM3 Monocytes # (Auto) 0.2 TH/MM3 Eosinophils # (Auto) 0.0 TH/MM3 Basophils # (Auto) 0.0 TH/MM3 CBC Comment AUTO DIFF Differential Comment AUTO DIFF CONFIRMED Platelet Estimate LOW Platelet Morphology Comment NORMAL Sodium Level 140 MEQ/L Potassium Level 4.0 MEQ/L Chloride Level 110 MEQ/L Carbon Dioxide Level 20.7 MEQ/L Anion Gap 9 MEQ/L Blood Urea Nitrogen 26 MG/DL Creatinine 0.90 MG/DL Estimat Glomerular Filtration 88 ML/MIN Rate Random Glucose 162 MG/DL Calcium Level 8.4 MG/DL Magnesium Level 2.1 MG/DL Total Bilirubin 0.8 MG/DL Aspartate Amino Transf 56 U/L (AST/SGOT) Alanine Aminotransferase 58 U/L (ALT/SGPT) Alkaline Phosphatase 84 U/L Total Protein 7.7 GM/DL Albumin 2.3 GM/DL Imaging Last Impressions Chest X-Ray 01/15/17 0600 Signed Impressions: Service Date/Time: Sunday, January 15, 2017 03:43 - CONCLUSION: 1. Cardiomegaly. Improving pulmonary edema. Jesus Miller MD Liver Ultrasound 01/12/17 0000 Signed Impressions: Service Date/Time: Thursday, January 12, 2017 10:59 - CONCLUSION: 1. Cirrhosis and portal hypertension. 2. Hepatosplenomegaly. 3. Trace ascites. 4. Right pleural effusion. 5. Common duct mildly prominent at 9 mm. Karlos Guillermo MD Assessment and Plan Problem List: (1) Atrial fibrillation with RVR Assessment and Plan: will continue cardizem ggt until able to consistently take PO; not a candidate for anticoagulation (2) Thrombocytopenia (3) Sepsis (4) Anemia (5) Alcoholism (6) Cirrhosis of liver (7) Shortness of breath (8) Alcohol abuse (9) Cellulitis of right hand Problem Qualifiers (1) Sepsis: Qualified Code: A41.9 - Sepsis, due to unspecified organism Leonard Healy MD Jan 15, 2017 11:12
[2017-01-15] MEDS: AZITHROMYCIN INJ 500 MG in SODIUM CHLOR 0.9% 250 ML INJ 250 ML IV SCH (11:40)
--- NOTE | 2017-01-15 15:22 | HHI.PR ---
Subjective Remarks The patient was resting in bed. He complained of neck pain. He said he was not sure why he had a hoarse voice. Discussed with nursing at the bedside. Objective Vitals Vital Signs Date Time Temp Pulse Resp B/P Pulse Ox O2 Delivery O2 Flow Rate FiO2 01/15/17 10:00 83 01/15/17 09:40 95 01/15/17 08:00 97.5 89 16 120/68 91 01/15/17 08:00 91 01/15/17 06:00 92 01/15/17 04:00 98.5 86 12 118/69 98 01/15/17 04:00 86 01/15/17 02:00 92 01/15/17 00:00 94 01/15/17 00:00 98.7 94 12 120/69 97 01/14/17 22:00 94 01/14/17 20:50 98 21 01/14/17 20:00 98.4 95 12 118/79 96 01/14/17 20:00 95 01/14/17 18:00 100 01/14/17 16:00 95 01/14/17 16:00 98.7 95 10 124/60 96 I/O 01/14/17 01/14/17 01/14/17 01/15/17 01/15/17 01/15/17 07:00 15:00 23:00 07:00 15:00 23:00 Intake Total 1596 ml 981 ml 1188 ml 623 ml Output Total 750 ml 1450 ml 750 ml 525 ml Balance 846 ml -469 ml 438 ml 98 ml Intake Oral 240 ml 0 ml 120 ml 120 ml IV Total 1356 ml 981 ml 1068 ml 503 ml Output Urine Total 750 ml 1450 ml 750 ml 525 ml Stool Total 0 ml Result Diagram: 01/15/17 0342 01/15/17 0342 Imaging Last Impressions Chest X-Ray 01/15/17 0600 Signed Impressions: Service Date/Time: Sunday, January 15, 2017 03:43 - CONCLUSION: 1. Cardiomegaly. Improving pulmonary edema. Jesus Miller MD Liver Ultrasound 01/12/17 0000 Signed Impressions: Service Date/Time: Thursday, January 12, 2017 10:59 - CONCLUSION: 1. Cirrhosis and portal hypertension. 2. Hepatosplenomegaly. 3. Trace ascites. 4. Right pleural effusion. 5. Common duct mildly prominent at 9 mm. Karlos Guillermo MD Objective Remarks GENERAL: Disheveled adult male in no acute distress SKIN: Patient has multiple areas along the skin, nail beds, distal fingertips, volar aspect of the wrist, etc. that are open almost pustular in appearance but no active drainage. HEAD: Normocephalic. EYES: Pupils equal and round. No scleral icterus. No injection or drainage. ENT: No nasal bleeding or discharge. Mucous membranes pink and moist. NECK: Supple without nuchal rigidity. CARDIOVASCULAR: Irregularly irregular rhythm, no murmur appreciated. RESPIRATORY: Mild wheezing. GASTROINTESTINAL: Abdomen soft, non-tender, slightly distended. Umbilical hernia noted. MUSCULOSKELETAL: Trace-1+ BLE edema. NEUROLOGICAL: Awake and alert. Motor grossly within normal limits. Normal speech. PSYCHIATRIC: Poor insight and judgment, flattened affect. Medications and IVs Current Medications Medications (Trade) Dose Ordered Sig/Yi Route Start Time Stop Time Status Last Admin (Cardizem Inj/NS Inj) 125 ml @ 0 mls/hr TITRATE IV 01/11/17 08:00 01/15/17 03:51 (Romazicon Inj) 0.2 mg Q1M PRN IV PUSH 01/11/17 09:15 (Ativan) 1 mg Q4H PRN PO 01/11/17 09:15 (Ativan Inj) 1 mg Q4H PRN IV PUSH 01/11/17 09:15 01/11/17 11:19 (Ativan) 2 mg Q2H PRN PO 01/11/17 09:15 (Ativan Inj) 2 mg Q2H PRN IV PUSH 01/11/17 09:15 01/14/17 02:53 (Ativan Inj) 2 mg Q1H PRN IV PUSH 01/11/17 09:15 (Ativan Inj) 2 mg Q15M PRN IV PUSH 01/11/17 09:15 01/14/17 02:13 (SEROquel) 200 mg DAILY PO 01/12/17 09:00 01/15/17 08:21 (NS Flush) 2 ml UNSCH PRN IV FLUSH 01/11/17 12:00 01/15/17 08:20 (NS Flush) 2 ml BID IV FLUSH 01/11/17 21:00 01/15/17 08:20 (Tylenol) 650 mg Q4H PRN PO 01/11/17 12:00 (Zofran Inj) 4 mg Q6H PRN IVP 01/11/17 12:00 (Colace) 100 mg Q12H PO 01/11/17 12:00 01/15/17 00:05 (Senokot) 17.2 mg Q12H PRN PO 01/11/17 12:00 (Tylenol) 650 mg Q6H PRN PO 01/11/17 12:00 (Roxicodone) 10 mg Q4H PRN PO 01/11/17 12:00 (Roxicodone) 5 mg Q4H PRN PO 01/11/17 12:00 Naloxone HCl 0.4 mg 0.4 mg UNSCH PRN IV 01/11/17 12:00 (Zosyn 4.5 Gm Premix) 100 ml @ 200 mls/hr Q6H IV 01/11/17 15:00 01/15/17 14:56 (Theragran) 1 tab DAILY PO 01/11/17 13:00 01/15/17 08:21 (Vitamin B1) 100 mg DAILY PO 01/11/17 13:00 01/15/17 08:21 Folic Acid 1 mg 1 mg DAILY PO 01/11/17 13:00 01/15/17 08:20 (Zithromax Inj/ NS 250 ml Inj) 250 ml @ 250 mls/hr Q24H IV 01/12/17 11:00 01/15/17 11:40 (Lopressor Inj) 2.5 mg Q6HR IV PUSH 01/12/17 12:00 01/15/17 11:40 Methylprednisolone Sodium Succinate 60 mg 60 mg Q12HR IV PUSH 01/12/17 21:00 01/15/17 08:20 Thiamine HCl 100 mg/Sodium Chloride 101 ml @ 101 mls/hr DAILY IV 01/12/17 12:00 01/15/17 09:03 Potassium Chloride 100 ml @ 50 mls/hr Q2H PRN IV 01/12/17 14:00 (KCl 20 Meq Premix Inj) 100 ml @ 50 mls/hr Q2H PRN IV 01/12/17 14:00 Potassium Bicarb/ Potassium Chloride 50 meq 50 meq UNSCH PRN PO 01/12/17 14:00 01/13/17 21:41 Potassium Chloride 100 ml @ 25 mls/hr UNSCH PRN IV 01/12/17 14:00 Potassium Chloride 100 ml @ 50 mls/hr Q2H PRN IV 01/12/17 14:00 (Magnesium Sulfate Inj/NS Inj) 100 ml @ 50 mls/hr UNSCH PRN IV 01/12/17 14:00 Magnesium Oxide 800 mg 800 mg UNSCH PRN PO 01/12/17 14:00 (Magnesium Sulfate Inj/NS Inj) 100 ml @ 50 mls/hr UNSCH PRN IV 01/12/17 14:00 Potassium Phosphate 2000 mg 2,000 mg Q4H PRN PO 01/12/17 14:00 (Sodium Phosphate Inj/NS 250 ml Inj) 250 ml @ 42 mls/hr UNSCH PRN IV 01/12/17 14:00 Potassium Phosphate 2000 mg 2,000 mg UNSCH PRN PO/TUBE 01/12/17 14:00 (Potassium Phosphate Inj/NS 250 ml Inj) 260 ml @ 42 mls/hr UNSCH PRN IV 01/12/17 14:00 Chlordiazepoxide 25 mg 25 mg TID PO 01/13/17 13:00 01/15/17 14:55 (Precedex Inj/NS 250 ml Inj) 250 ml @ 0 mls/hr TITRATE IV 01/14/17 02:45 01/15/17 09:01 (Cardizem) 90 mg QID PO 01/14/17 09:00 01/15/17 14:55 A/P Assessment and Plan Sepsis/ Lactic acidosis The pt has multiple wound infections on his body. He has evidence of cellulitis in his LUE. He had leukocytosis and his HR was elevated. He received IVFs, vancomycin and Zosyn in the ED. Repeat chest x-ray with evidence of pneumonia. - continue azithromycin, vancomycin and Zosyn. - S/p IVFs. - follow blood, sputum, and urine cultures. No growth to date. A fib with RVR The pt has a history of A fib. HR has been elevated to the 180s while on diltiazem gtt. Cardiology consult appreciated. 2d echo Nl EF, mild to mod MR. - Restarted on Cardizem infusion, continue PO cardizem. - Continue metoprolol 2.5 mg every 6 hours scheduled IV. - No anticoagulation due to thrombocytopenia. - telemetry. - consult cardiology. Acute respiratory failure The patient required an 8 L simple mask. Repeat chest x-ray with evidence of bibasilar pneumonia. - Continue azithromycin, vancomycin and Zosyn. - DuoNeb every 6 hours scheduled and when necessary. - IV Solu-Medrol 60 mg every 12. - Oxygen as needed. - Incentive spirometry. Alcohol abuse The pt appears to be withdrawing. Has a history of alcohol withdrawal seizures. He was started on Precedex. - CIWA protocol. - seizure precautions and neuro checks. - MVI, thiamine, folate. - cessation instruction. - PT eval requested. - wean Precedex as tolerated. Anemia/ Thrombocytopenia/ Cirrhosis Hemoglobin fluctuates. Ammonia level 37. Liver US: Cirrhosis and portal hypertension; Hepatosplenomegaly; Trace ascites; Right pleural effusion; Common duct mildly prominent at 9 mm. - follow CBC and transfuse as needed. - hold off on chemical DVT PPx for now. - Lactulose 30 ml q12. - GI consult if Hb drops again. PPx: SCDs. Discharge Planning Awaiting clinical improvement. Bc Read DO Jan 15, 2017 15:22
[2017-01-15] MEDS ORDERED: MISCELLANEOUS NURSING INFORMATION XX SCH (15:45)
[2017-01-15] MEDS ORDERED: POLYETHYLENE GLYCOL 17 GM PKG PO ONE (15:45)
[2017-01-15] MEDS ORDERED: CHLORHEXIDINE GLUCONATE 2 % 1 PACK (2 CLOTHS) TOP PRN (15:45)
[2017-01-15] MEDS ORDERED: LACTULOSE SYRUP 20 GM/30 ML CUP PO ONE (15:45)
--- NOTE | 2017-01-15 15:45 | HHI.CCPN ---
Subjective Remarks/Hospital Course Patient is a 52-year-old male with history of liver cirrhosis, continued alcohol abuse, alcohol dependence, COPD who presented to the hospital feeling unwell and also for possible skin infection involving his hands per admit note. He stated that he had been drinking up to 2 L of bourbon daily and stopped prior to the day of admission. Patient has history of alcohol withdrawal seizures also. Patient was admitted to the hospital service with A. fib with RVR, early alcohol withdrawal and sepsis secondary to pneumonia and cellulitis. Overnight patient was getting increasingly agitated today a.m. oxygen requirements went up to 8 L by simple mask. ABG showed PO2 on 8L was only 51. Chest x-ray today showed increasing bibasilar right more than left infiltrates. With hypoxemic respiratory failure, alcohol withdrawal patient was transferred to ICU and critical care medicine was consulted. I evaluated the patient in ICU. He is in moderate distress, intermittently agitated. He is currently in atrial fibrillation with rates varying from 140-170 on Cardizem drip. Additional 20 mg IV push of Cardizem and 5 mg IV push of metoprolol given and Cardizem infusion was increased to 20 mg per hour. Cannot anticoagulate with acute on chronic thrombocytopenia. I would also try to avoid amiodarone due to liver cirrhosis. 2-D echo shows normal ejection fraction and mild to moderate mitral regurgitation. 01/13: Remains sedated with Precedex for alcohol withdrawal. Chest x-ray shows unchanged right more than left infiltrates. Lab work is pending today. CBC and known showed hemoglobin of 5.4 but repeat showed 8.2 and so no transfusion was given 01/14: Agitated delirium is overnight Precedex had to be restarted today morning Precedex is 1.4 g per KG per hour. RN starting to wean Precedex. Breathing comfortably. Platelets and hemoglobin stable Subjective 01/15: Afebrile. Code angel called due to agitation today. Tolerating diet. Remains on nasal cannula. Heart rate relatively well controlled. Objective Vital Signs Date Time Temp Pulse Resp B/P Pulse Ox O2 Delivery O2 Flow Rate FiO2 01/15/17 10:00 83 01/15/17 09:40 95 01/15/17 08:00 97.5 16 120/68 01/14/17 20:50 21 01/13/17 09:20 Nasal Cannula 3.00 Intake and Output 01/14/17 01/14/17 01/15/17 08:00 16:00 00:00 Intake Total 1596 ml 981 ml 1188 ml Output Total 750 ml 1450 ml 750 ml Balance 846 ml -469 ml 438 ml Result Diagram: 01/15/17 0342 01/15/17 0342 Other Results Microbiology Date/Time Procedure Status Source Growth 01/12/17 08:10 Urine Culture - Final Complete Urine Catheterized Urine NO GROWTH IN 48 HOURS. 01/11/17 08:00 Aerobic Blood Culture - Preliminary Resulted Blood Peripheral NO GROWTH IN 4 DAYS 01/11/17 08:00 Anaerobic Blood Culture - Preliminary Resulted Blood Peripheral NO GROWTH IN 4 DAYS Imaging Last Impressions Chest X-Ray 01/15/17 0600 Signed Impressions: Service Date/Time: Sunday, January 15, 2017 03:43 - CONCLUSION: 1. Cardiomegaly. Improving pulmonary edema. Jesus Miller MD Liver Ultrasound 01/12/17 0000 Signed Impressions: Service Date/Time: Thursday, January 12, 2017 10:59 - CONCLUSION: 1. Cirrhosis and portal hypertension. 2. Hepatosplenomegaly. 3. Trace ascites. 4. Right pleural effusion. 5. Common duct mildly prominent at 9 mm. Karlos Guillermo MD Objective Remarks GENERAL: 52-year-old male, disheveled currently agitated SKIN: Warm and moist multiple skin lesions on hand HEAD: Normocephalic. EYES: Pupils equal and round about 3 mm bilaterally and reactive. No scleral icterus. No injection or drainage. ENT: No nasal bleeding or discharge. Mucous membranes pink and moist. On NC NECK: Supple without nuchal rigidity. No thyromegaly CARDIOVASCULAR: Tachycardic, irregularly irregular rhythm, S1, S2. No S4. No murmur appreciated. RESPIRATORY: Mild expiratory wheezing throughout both lung reid. GASTROINTESTINAL: Abdomen soft, non-tender, slightly distended. Umbilical hernia noted easily reducible. MUSCULOSKELETAL: Trace-1+ BLE edema. NEUROLOGICAL: Sets agitated intermittently. Answers some questions, oriented to person and somewhat to place. Moves all 4 extremity spontaneously. A/P Assessment and Plan NEURO/PSYCH: Alcohol withdrawal syndrome Alcohol dependence Polysubstance abuse including THC/amphetamines Schizoaffective schizophrenia Continue Seroquel 200 mg by mouth daily/home medication for schizophrenia -Currently on [facility] protocol for alcohol withdrawal -Precedex for alcohol withdrawal. Scheduled Librium started 01/13 25 mg 3 times a day -Supplement thiamine, folate and multivitamin daily Acetaminophen for fever Oxycodone for pain management RESP: Acute hypoxemic respiratory failure Bibasilar pneumonia/aspiration Acute COPD exacerbation Nasal cannula to maintain saturations greater than equal to 92% Incentive spirometry while awake -DuoNeb every 6 hours scheduled and when necessary -IV Solu-Medrol 60 mg every 12 -Not a good BiPAP candidate due to alcohol withdrawal and altered mentation CV: Atrial fibrillation with RVR Chronic atrial fibrillation Hypertension -Restarted on Cardizem infusion, continue PO cardizem 90 mg every 6, -Continue metoprolol 2.5 mg every 6 hours scheduled IV -Attempt to avoid amiodarone due to liver cirrhosis -2d echo 65-70%, no regional wall motion abnormality mild to mod MR, Cardiology consulted by [facility]. Dr Rich -No anticoagulation due to thrombocytopenia/poor candidate GI: Hepatitis C Liver cirrhosis -Regular diet as tolerated. - IV Protonix gtt -change to 40 twice a day -Liver ultrasound. Revealed ascites Ammonia level 45 -Lactulose 30 ml day Currently Lasix 80 twice a day/spironolactone 100 mg twice a day on hold : -Monitor renal function closely. Ellis catheter. ID: Severe sepsis Bibasilar pneumonia -Currently on broad-spectrum antibiotics with IV vancomycin and Zosyn. Azithromycin for atypical coverage -Follow up on 01/11 blood culture, sputum culture no growth HEME: Microcytic anemia Thrombocytopenia -Thrombocytopenia most likely related to liver disease and sepsis -Monitor CBC, CMP, INR ENDO: Hypokalemia - resolved Replace electrolytes as clinically indicated PROPH: -Bilateral lower extremity SCDs. Avoid chemical prophylaxis due to thrombocytopenia. Protonix gtt-cahnge to 40mg IV q12 LINES: -Utilize peripheral IVs, central line if needed Critical Care: The total critical care time was 35 minutes. Time to perform other separately billable procedures was not included in the critical care time. Quinn Frias MD Jan 15, 2017 15:44
[2017-01-16] VITALS (14 sets, daily range): BP systolic 116–133; BP diastolic 67–91; PULSE 98–153; RESP 12–24; TEMP 97.2–98.4; O2SAT 85–100
[2017-01-16] MEDS: METOPROLOL TARTRATE 5 MG/5 ML VIAL IV PUSH SCH ×2 (00:10→04:54)
[2017-01-16] MEDS: SENNOSIDES 8.6 MG TAB PO SCH ×3 (00:11→23:45)
[2017-01-16] MEDS: DOCUSATE SODIUM 100 MG CAP PO SCH ×3 (00:18→23:46)
[2017-01-16] MEDS: RESP: ALBUTEROL 2.5 MG/IPRATROPIUM 0.5 MG NEB (SCH) NEB ×4 (03:17→20:12)
[2017-01-16] MEDS: PIPERACIL-TAZO 4.5 GM PREMIX 100 ML IV SCH ×4 (03:32→20:42)
[2017-01-16] MEDS: CHLORHEXIDINE GLUCONATE 2 % 1 PACK (2 CLOTHS) TOP SCH (04:00)
[2017-01-16] MEDS: DEXMEDETOMIDINE INJ 1,000 MCG in SODIUM CHLOR 0.9% 250 ML INJ 240 ML IV SCH (05:06)
[2017-01-16] MEDS: DILTIAZEM HCL 90 MG TAB PO SCH ×4 (07:50→20:42)
[2017-01-16] MEDS: FOLIC ACID 1 MG TAB PO SCH (07:51)
[2017-01-16] MEDS: chlordiazePOXIDE 25 MG CAP PO SCH ×3 (07:51→17:10)
[2017-01-16] MEDS: methylPREDNISolone SOD SUCC 125 MG/2 ML VIAL IV PUSH SCH ×2 (07:51→20:43)
[2017-01-16] MEDS: MULTIVITAMIN TAB PO SCH (07:51)
[2017-01-16] MEDS: QUEtiapine FUMARATE 200 MG TAB PO SCH (07:51)
[2017-01-16] MEDS: SODIUM CHLORIDE 0.9% FLUSH 10 ML FLUSH IV FLUSH SCH ×2 (07:52→20:42)
--- NOTE | 2017-01-16 08:22 | PD.CARD.PN ---
Subjective Subjective Remarks Lethargic, appears encephalopathic, still fast rates in afib, ggt was changed to oral cardizem Objective Medications Administered Medications Medications (Trade) Dose Ordered Sig/Yi Route PRN Reason Start Time Stop Time Status Last Admin Dose Admin Diltiazem HCl/ Sodium Chloride (Cardizem Inj/NS Inj) 125 ml @ 0 mls/hr TITRATE IV 01/11/17 08:00 01/15/17 03:51 Lorazepam (Ativan) 1 mg Q4H PRN PO CIWA 8 - 10 01/11/17 09:15 01/16/17 01:02 Lorazepam (Ativan Inj) 1 mg Q4H PRN IV PUSH CIWA 8 - 10 01/11/17 09:15 01/11/17 11:19 Lorazepam (Ativan Inj) 2 mg Q2H PRN IV PUSH CIWA 11-14 01/11/17 09:15 01/14/17 02:53 Lorazepam (Ativan Inj) 2 mg Q15M PRN IV PUSH CIWA > 20 01/11/17 09:15 01/14/17 02:13 Quetiapine Fumarate (SEROquel) 200 mg DAILY PO 01/12/17 09:00 01/16/17 07:51 Sodium Chloride (NS Flush) 2 ml UNSCH PRN IV FLUSH FLUSH AFTER USING IV ACCESS 01/11/17 12:00 01/15/17 08:20 Sodium Chloride (NS Flush) 2 ml BID IV FLUSH 01/11/17 21:00 01/16/17 07:52 Docusate Sodium 100 mg 100 mg Q12H PO 01/11/17 12:00 01/16/17 00:18 Piperacillin Sod/ Tazobactam Sod (Zosyn 4.5 Gm Premix) 100 ml @ 200 mls/hr Q6H IV 01/11/17 15:00 01/16/17 07:52 Multivitamins (Theragran) 1 tab DAILY PO 01/11/17 13:00 01/16/17 07:51 Folic Acid 1 mg 1 mg DAILY PO 01/11/17 13:00 01/16/17 07:51 Azithromycin/ Sodium Chloride (Zithromax Inj/ NS 250 ml Inj) 250 ml @ 250 mls/hr Q24H IV 01/12/17 11:00 01/15/17 11:40 Metoprolol Tartrate (Lopressor Inj) 2.5 mg Q6HR IV PUSH 01/12/17 12:00 01/16/17 04:54 Methylprednisolone Sodium Succinate 60 mg 60 mg Q12HR IV PUSH 01/12/17 21:00 01/16/17 07:51 Thiamine HCl/ Sodium Chloride (Thiamine Inj/NS Inj) 101 ml @ 101 mls/hr DAILY IV 01/12/17 12:00 01/15/17 09:03 Potassium Bicarb/ Potassium Chloride (K-Lyte Cl Eff) 50 meq UNSCH PRN PO For Potassium 3.3 - 3.5 mEq/L 01/12/17 14:00 01/13/17 21:41 Chlordiazepoxide 25 mg 25 mg TID PO 01/13/17 13:00 01/16/17 07:51 Dexmedetomidine HCl/Sodium Chloride (Precedex Inj/NS 250 ml Inj) 250 ml @ 0 mls/hr TITRATE IV 01/14/17 02:45 01/16/17 05:06 Diltiazem HCl (Cardizem) 90 mg QID PO 01/14/17 09:00 01/16/17 07:50 Miscellaneous Information 1 Q361D XX 01/15/17 15:45 01/15/17 15:45 Chlorhexidine Gluconate (Chlorhexidine 2% Cloth) 3 pack Taper DAILY@04 TOP 01/16/17 04:00 01/12/18 03:59 01/16/17 04:00 Sennosides (Senokot) 17.2 mg Q12H PO 01/16/17 00:00 01/16/17 00:11 Polyethylene Glycol (Miralax) 17 gm DAILY PO 01/16/17 09:00 01/16/17 07:51 Lactulose (Lactulose Liq) 30 ml DAILY PO 01/16/17 09:00 01/16/17 07:50 Vital Signs / I&O Vital Signs Date Time Temp Pulse Resp B/P Pulse Ox O2 Delivery O2 Flow Rate FiO2 01/16/17 06:00 103 01/16/17 04:00 116 01/16/17 04:00 98.4 116 24 133/71 85 01/16/17 02:00 101 01/16/17 00:00 98.1 110 22 128/67 89 01/16/17 00:00 110 01/15/17 22:00 104 01/15/17 21:02 100 Nasal Cannula 2.00 01/15/17 20:00 91 01/15/17 20:00 98.2 91 22 119/59 100 01/15/17 18:00 110 01/15/17 16:00 94 01/15/17 16:00 98.0 94 17 102/55 100 01/15/17 14:00 92 01/15/17 12:00 82 01/15/17 12:00 98.3 92 15 118/64 100 01/15/17 10:00 83 01/15/17 09:40 95 I/O 01/15/17 01/15/17 01/15/17 01/16/17 01/16/17 01/16/17 07:00 15:00 23:00 07:00 15:00 23:00 Intake Total 623 ml 898 ml 876 ml 795 ml Output Total 525 ml 600 ml 400 ml 600 ml Balance 98 ml 298 ml 476 ml 195 ml Intake Oral 120 ml 480 ml 600 ml 600 ml IV Total 503 ml 418 ml 276 ml 195 ml Output Urine Total 525 ml 600 ml 400 ml 600 ml Stool Total 0 ml Physical Exam GENERAL: appears in etoh w/d's CARDIOVASCULAR: Regular rate and irregular rhythm without murmurs, gallops, or rubs. RESPIRATORY: wheezes all reid GASTROINTESTINAL: Abdomen soft, non-tender, nondistended. Normal, active bowel sounds MUSCULOSKELETAL: Extremities without clubbing, cyanosis, or edema. NEURO: appears in etoh w/d's Imaging Last Impressions Chest X-Ray 01/15/17 0600 Signed Impressions: Service Date/Time: Sunday, January 15, 2017 03:43 - CONCLUSION: 1. Cardiomegaly. Improving pulmonary edema. Jesus Miller MD Liver Ultrasound 01/12/17 0000 Signed Impressions: Service Date/Time: Thursday, January 12, 2017 10:59 - CONCLUSION: 1. Cirrhosis and portal hypertension. 2. Hepatosplenomegaly. 3. Trace ascites. 4. Right pleural effusion. 5. Common duct mildly prominent at 9 mm. Karlos Guillermo MD Assessment and Plan Problem List: (1) Atrial fibrillation with RVR Assessment and Plan: added lopressor 50mg bid to oral cardizem, not a candidate for anticoagulation (2) Thrombocytopenia (3) Sepsis (4) Anemia (5) Alcoholism (6) Cirrhosis of liver (7) Shortness of breath (8) Alcohol abuse (9) Cellulitis of right hand Assessment and Plan Dr. Del Rio will return in the AM. Problem Qualifiers (1) Sepsis: Qualified Code: A41.9 - Sepsis, due to unspecified organism Leonard Healy MD Jan 16, 2017 08:22
[2017-01-16] MEDS: METOPROLOL TARTRATE 50 MG TAB PO SCH ×2 (08:58→20:42)
--- NOTE | 2017-01-16 08:59 | HHI.CCPN ---
Subjective Remarks/Hospital Course Patient is a 52-year-old male with history of liver cirrhosis, continued alcohol abuse, alcohol dependence, COPD who presented to the hospital feeling unwell and also for possible skin infection involving his hands per admit note. He stated that he had been drinking up to 2 L of bourbon daily and stopped prior to the day of admission. Patient has history of alcohol withdrawal seizures also. Patient was admitted to the hospital service with A. fib with RVR, early alcohol withdrawal and sepsis secondary to pneumonia and cellulitis. Overnight patient was getting increasingly agitated today a.m. oxygen requirements went up to 8 L by simple mask. ABG showed PO2 on 8L was only 51. Chest x-ray today showed increasing bibasilar right more than left infiltrates. With hypoxemic respiratory failure, alcohol withdrawal patient was transferred to ICU and critical care medicine was consulted. I evaluated the patient in ICU. He is in moderate distress, intermittently agitated. He is currently in atrial fibrillation with rates varying from 140-170 on Cardizem drip. Additional 20 mg IV push of Cardizem and 5 mg IV push of metoprolol given and Cardizem infusion was increased to 20 mg per hour. Cannot anticoagulate with acute on chronic thrombocytopenia. I would also try to avoid amiodarone due to liver cirrhosis. 2-D echo shows normal ejection fraction and mild to moderate mitral regurgitation. 01/13: Remains sedated with Precedex for alcohol withdrawal. Chest x-ray shows unchanged right more than left infiltrates. Lab work is pending today. CBC and known showed hemoglobin of 5.4 but repeat showed 8.2 and so no transfusion was given 01/14: Agitated delirium is overnight Precedex had to be restarted today morning Precedex is 1.4 g per KG per hour. RN starting to wean Precedex. Breathing comfortably. Platelets and hemoglobin stable 01/15: Afebrile. Code angel called due to agitation today. Tolerating diet. Remains on nasal cannula. Heart rate relatively well controlled. Subjective 01/16: Afebrile. Heart rate being rate controlled A. fib and RVR. Metoprolol increased to 50 mg twice a day per cardiology. Appears comfortable this AM. Objective Vital Signs Date Time Temp Pulse Resp B/P Pulse Ox O2 Delivery O2 Flow Rate FiO2 01/16/17 08:30 100 Nasal Cannula 2.00 01/16/17 06:00 103 01/16/17 04:00 98.4 24 133/71 01/14/17 20:50 21 Intake and Output 01/15/17 01/15/17 01/16/17 08:00 16:00 00:00 Intake Total 623 ml 898 ml 876 ml Output Total 525 ml 600 ml 400 ml Balance 98 ml 298 ml 476 ml Result Diagram: 01/15/17 0342 01/15/17 0342 Other Results Microbiology Date/Time Procedure Status Source Growth 01/12/17 08:10 Urine Culture - Final Complete Urine Catheterized Urine NO GROWTH IN 48 HOURS. Imaging Last Impressions Chest X-Ray 01/15/17 0600 Signed Impressions: Service Date/Time: Sunday, January 15, 2017 03:43 - CONCLUSION: 1. Cardiomegaly. Improving pulmonary edema. Jesus Miller MD Liver Ultrasound 01/12/17 0000 Signed Impressions: Service Date/Time: Thursday, January 12, 2017 10:59 - CONCLUSION: 1. Cirrhosis and portal hypertension. 2. Hepatosplenomegaly. 3. Trace ascites. 4. Right pleural effusion. 5. Common duct mildly prominent at 9 mm. Karlos Guillermo MD Objective Remarks GENERAL: 52-year-old male, disheveled currently resting in bed distress SKIN: Warm and moist multiple skin lesions on hand HEAD: Normocephalic. EYES: Pupils equal and round about 3 mm bilaterally and reactive. No scleral icterus. No injection or drainage. ENT: No nasal bleeding or discharge. Mucous membranes pink and moist. On NC NECK: Supple without nuchal rigidity. No thyromegaly CARDIOVASCULAR: Tachycardic, irregularly irregular rhythm, S1, S2. No S4. No murmur appreciated. RESPIRATORY: Mild expiratory wheezing throughout both lung reid. GASTROINTESTINAL: Abdomen soft, non-tender, slightly distended. Umbilical hernia noted easily reducible. MUSCULOSKELETAL: Trace-1+ BLE edema. NEUROLOGICAL: Remains agitated intermittently. Answers some questions, oriented to person and somewhat to place and time. Moves all 4 extremity spontaneously. A/P Assessment and Plan NEURO/PSYCH: Alcohol withdrawal syndrome Alcohol dependence Polysubstance abuse including THC/amphetamines Schizoaffective schizophrenia Continue Seroquel 200 mg by mouth daily/home medication for schizophrenia -Currently on [facility] protocol for alcohol withdrawal -Precedex for alcohol withdrawal. Scheduled Librium started 01/13 25 mg 3 times a day -Supplement thiamine, folate and multivitamin daily Acetaminophen for fever Oxycodone for pain management RESP: Acute hypoxemic respiratory failure Bibasilar pneumonia/aspiration Acute COPD exacerbation Nasal cannula to maintain saturations greater than equal to 92%. Currently on 2 L Incentive spirometry while awake -DuoNeb every 6 hours scheduled and when necessary -IV Solu-Medrol 40 mg every 12 -Not a good BiPAP candidate due to alcohol withdrawal and altered mentation CV: Atrial fibrillation with RVR Chronic atrial fibrillation Hypertension -continue PO cardizem 90 mg every 6 -Continue metoprolol we'll switch to 50 mg twice a day -Attempt to avoid amiodarone due to liver cirrhosis -2d echo 65-70%, no regional wall motion abnormality mild to mod MR, Cardiology consulted by [facility]. Dr Rich -No anticoagulation due to thrombocytopenia/poor candidate GI: Hepatitis C Liver cirrhosis Constipation -Regular diet as tolerated. - IV Protonix gtt -change to 40 twice a day -Liver ultrasound. Revealed ascites -Lactulose 30 ml 4 times a day for elevated ammonia/constipation MiraLAX/Colace and Senokot for bowel regimen Currently Lasix 80 twice a day/spironolactone 100 mg twice a day on hold : -Monitor renal function closely. Ellis catheter. ID: Severe sepsis Bibasilar pneumonia -Currently on broad-spectrum antibiotics with IV vancomycin and Zosyn. Azithromycin for atypical coverage. Likely de-escalate -Follow up on 01/11 blood culture, sputum culture no growth HEME: Microcytic anemia Thrombocytopenia -Thrombocytopenia most likely related to liver disease and sepsis -Monitor CBC, CMP, INR ENDO: Hypokalemia - resolved Replace electrolytes as clinically indicated PROPH: -Bilateral lower extremity SCDs. Avoid chemical prophylaxis due to thrombocytopenia. Protonix gtt-cahnge to 40mg IV q12 LINES: -Utilize peripheral IVs, central line if needed Critical Care: The total care time was 35 minutes. Time to perform other separately billable procedures was not included in the critical care time. Quinn Frias MD Jan 16, 2017 08:59
[2017-01-16] MEDS ORDERED: POLYETHYLENE GLYCOL 17 GM PKG PO SCH (09:00)
[2017-01-16] MEDS ORDERED: LACTULOSE SYRUP 20 GM/30 ML CUP PO SCH (09:00)
[2017-01-16] MEDS ORDERED: DIGOXIN 0.5 MG/2 ML VIAL IV PUSH ONE (09:30)
[2017-01-16] MEDS ORDERED: METOPROLOL TARTRATE 5 MG/5 ML VIAL IV PUSH PRN (10:00)
[2017-01-16] MEDS: THIAMINE INJ 100 MG in SODIUM CHLORIDE 0.9% INJ 100 ML IV SCH (10:18)
[2017-01-16] MEDS: AZITHROMYCIN INJ 500 MG in SODIUM CHLOR 0.9% 250 ML INJ 250 ML IV SCH (10:19)
--- NOTE | 2017-01-16 10:23 | RADRPT ---
EXAM DATE/TIME: 01/16/2017 09:28 [place] COMPARISON: CHEST SINGLE AP, January 15, 2017, 3:43. INDICATIONS : Constipation. MEDICAL HISTORY : Cirrhosis. Hepatitis C. SURGICAL HISTORY : None. ENCOUNTER: Subsequent ACUITY: 1 month PAIN SCORE: Non-responsive. LOCATION: abdomen. FINDINGS: The bowel gas is nonspecific. There are no signs of obstruction or free air for technique. No defini te calcified stones are identified for technique. Moderate stool is present throughout the colon. The re is pulmonary edema in the visualized lungs discussed on the patient's chest x-ray. CONCLUSION: Unremarkable study except for stool. Anjelica Briones MD on January 16, 2017 at 10:20 Board Certified Radiologist. This report was verified electronically.
[2017-01-16 11:24] LABS: AUTOMATED NEUTROPHIL # 3.4 TH/MM3 (1.8-7.7); BASOPHIL % 0.2 % (0.0-2.0); HEMATOCRIT 27.4 % (39.0-51.0); LYMPH % 5.8 % (9.0-44.0); LYMPHOCYTE # 0.2 TH/MM3 (1.0-4.8); MEAN CELL VOLUME 77.9 FL (80.0-100.0); MEAN CORPUSCULAR HEMOGLOBIN 24.5 PG (27.0-34.0); MEAN CORPUSCULAR HGB CONC 31.4 % (32.0-36.0); MONO % 5.2 % (0.0-8.0); NEUT % 88.8 % (16.0-70.0); PLATELET COUNT 69 TH/MM3 (150-450); RED BLOOD COUNT 3.51 MIL/MM3 (4.50-5.90); RED CELL DISTRIBUTION WIDTH 21.8 % (11.6-17.2); WHITE BLOOD COUNT 3.8 TH/MM3 (4.0-11.0)
[2017-01-16 11:26] LABS: HEMO FLAGS AUTO DIFF
[2017-01-16 11:36] LABS: APTT (PATIENT) 24.9 SEC (24.3-30.1); INTERNATIONAL NORMALIZED RATIO 1.2 RATIO; PROTHROMBIN TIME - PATIENT 13.6 SEC (9.8-11.6)
[2017-01-16 11:52] LABS: ALT (GPT) 74 U/L (12-78); ANION GAP 8 MEQ/L (5-15); AST (GOT) 70 U/L (15-37); BICARBONATE 23.2 MEQ/L (21.0-32.0); BLOOD UREA NITROGEN 28 MG/DL (7-18); CHLORIDE 106 MEQ/L (98-107); GLOMERULAR FILTRATION RATE 82 ML/MIN (>89); MAGNESIUM 1.9 MG/DL (1.5-2.5); POTASSIUM 4.2 MEQ/L (3.5-5.1); SODIUM (NA) 137 MEQ/L (136-145)
[2017-01-16 12:02] LABS: ALKALINE PHOSPHATASE 98 U/L (45-117); TOTAL BILIRUBIN ADULT 0.7 MG/DL (0.2-1.0)
[2017-01-16 12:08] LABS: CREATINE KINASE 93 U/L (39-308)
[2017-01-16 12:19] LABS: PLATELET ESTIMATE SMEAR LOW (NORMAL); PLATELET MORPHOLOGY NORMAL (NORMAL); SCAN/DIFF AUTO DIFF CONFIRMED
[2017-01-16] MEDS: LACTULOSE SYRUP 20 GM/30 ML CUP PO SCH ×3 (13:06→23:46)
[2017-01-16] MEDS: POLYETHYLENE GLYCOL 17 GM PKG PO SCH (20:43)
[2017-01-17] VITALS (14 sets, daily range): BP systolic 91–129; BP diastolic 55–93; PULSE 86–164; RESP 16–22; TEMP 98.1–98.8; O2SAT 98–100
[2017-01-17] MEDS: LORazepam 2 MG/ML VIAL IV PUSH PRN ×2 (02:12→06:07)
[2017-01-17] MEDS: PIPERACIL-TAZO 4.5 GM PREMIX 100 ML IV SCH ×3 (02:20→20:10)
[2017-01-17] MEDS: CHLORHEXIDINE GLUCONATE 2 % 1 PACK (2 CLOTHS) TOP SCH (03:49)
[2017-01-17] MEDS: RESP: ALBUTEROL 2.5 MG/IPRATROPIUM 0.5 MG NEB (SCH) NEB ×5 (03:57→20:51)
[2017-01-17] MEDS: LACTULOSE SYRUP 20 GM/30 ML CUP PO SCH ×2 (04:45→20:10)
[2017-01-17 05:58] LABS: HEMATOCRIT 25.5 % (39.0-51.0); MEAN CELL VOLUME 76.2 FL (80.0-100.0); MEAN CORPUSCULAR HEMOGLOBIN 25.3 PG (27.0-34.0); MEAN CORPUSCULAR HGB CONC 33.3 % (32.0-36.0); PLATELET COUNT 80 TH/MM3 (150-450); RED BLOOD COUNT 3.35 MIL/MM3 (4.50-5.90); RED CELL DISTRIBUTION WIDTH 20.8 % (11.6-17.2); WHITE BLOOD COUNT 5.1 TH/MM3 (4.0-11.0)
[2017-01-17 06:01] LABS: REVIEW FLAG FINAL
[2017-01-17 06:17] LABS: BICARBONATE 24.2 MEQ/L (21.0-32.0); POTASSIUM 3.8 MEQ/L (3.5-5.1)
[2017-01-17] MEDS: QUEtiapine FUMARATE 200 MG TAB PO SCH (08:59)
[2017-01-17] MEDS: chlordiazePOXIDE 25 MG CAP PO SCH ×3 (08:59→19:17)
[2017-01-17] MEDS: FOLIC ACID 1 MG TAB PO SCH (08:59)
[2017-01-17] MEDS: MULTIVITAMIN TAB PO SCH (08:59)
[2017-01-17] MEDS: METOPROLOL TARTRATE 50 MG TAB PO SCH ×3 (08:59→22:43)
[2017-01-17] MEDS: DILTIAZEM HCL 90 MG TAB PO SCH ×4 (08:59→20:10)
[2017-01-17] MEDS: SODIUM CHLORIDE 0.9% FLUSH 10 ML FLUSH IV FLUSH SCH ×2 (09:00→20:10)
[2017-01-17] MEDS: POLYETHYLENE GLYCOL 17 GM PKG PO SCH ×2 (09:00→20:10)
[2017-01-17] MEDS: methylPREDNISolone SOD SUCC 125 MG/2 ML VIAL IV PUSH SCH (09:01)
--- NOTE | 2017-01-17 09:27 | HHI.CCPN ---
Subjective Remarks/Hospital Course Patient is a 52-year-old male with history of liver cirrhosis, continued alcohol abuse, alcohol dependence, COPD who presented to the hospital feeling unwell and also for possible skin infection involving his hands per admit note. He stated that he had been drinking up to 2 L of bourbon daily and stopped prior to the day of admission. Patient has history of alcohol withdrawal seizures also. Patient was admitted to the hospital service with A. fib with RVR, early alcohol withdrawal and sepsis secondary to pneumonia and cellulitis. Overnight patient was getting increasingly agitated today a.m. oxygen requirements went up to 8 L by simple mask. ABG showed PO2 on 8L was only 51. Chest x-ray today showed increasing bibasilar right more than left infiltrates. With hypoxemic respiratory failure, alcohol withdrawal patient was transferred to ICU and critical care medicine was consulted. I evaluated the patient in ICU. He is in moderate distress, intermittently agitated. He is currently in atrial fibrillation with rates varying from 140-170 on Cardizem drip. Additional 20 mg IV push of Cardizem and 5 mg IV push of metoprolol given and Cardizem infusion was increased to 20 mg per hour. Cannot anticoagulate with acute on chronic thrombocytopenia. I would also try to avoid amiodarone due to liver cirrhosis. 2-D echo shows normal ejection fraction and mild to moderate mitral regurgitation. 01/13: Remains sedated with Precedex for alcohol withdrawal. Chest x-ray shows unchanged right more than left infiltrates. Lab work is pending today. CBC and known showed hemoglobin of 5.4 but repeat showed 8.2 and so no transfusion was given 01/14: Agitated delirium is overnight Precedex had to be restarted today morning Precedex is 1.4 g per KG per hour. RN starting to wean Precedex. Breathing comfortably. Platelets and hemoglobin stable 01/15: Afebrile. Code angel called due to agitation today. Tolerating diet. Remains on nasal cannula. Heart rate relatively well controlled. 01/16: Afebrile. Heart rate being rate controlled A. fib and RVR. Metoprolol increased to 50 mg twice a day per cardiology. Appears comfortable this AM. Subjective 01/17: Appears much more comfortable this AM. Off all sedation. Heart rate currently 160s - 170s. Hemodynamically stable. Receiving rate control medications currently. Also BM. Tolerating diet. Objective Vital Signs Date Time Temp Pulse Resp B/P Pulse Ox O2 Delivery O2 Flow Rate FiO2 01/17/17 06:00 160 01/17/17 04:00 98.3 20 117/61 100 01/16/17 20:12 Nasal Cannula 21 Intake and Output 01/16/17 01/16/17 01/17/17 08:00 16:00 00:00 Intake Total 795 ml 1064 ml 400 ml Output Total 600 ml 1150 ml 800 ml Balance 195 ml -86 ml -400 ml Result Diagram: 01/17/17 0506 01/17/17 0506 Imaging Last Impressions Abdomen X-Ray 01/16/17 0000 Signed Impressions: Service Date/Time: Monday, January 16, 2017 09:28 - CONCLUSION: Unremarkable study except for stool. Anjelica Briones MD Chest X-Ray 01/15/17 0600 Signed Impressions: Service Date/Time: Sunday, January 15, 2017 03:43 - CONCLUSION: 1. Cardiomegaly. Improving pulmonary edema. Jesus Miller MD Liver Ultrasound 01/12/17 0000 Signed Impressions: Service Date/Time: Thursday, January 12, 2017 10:59 - CONCLUSION: 1. Cirrhosis and portal hypertension. 2. Hepatosplenomegaly. 3. Trace ascites. 4. Right pleural effusion. 5. Common duct mildly prominent at 9 mm. Karlos Guillermo MD Objective Remarks GENERAL: 52-year-old male, disheveled currently up in bed in chair distress SKIN: Warm and moist multiple skin lesions on hand HEAD: Normocephalic. EYES: Pupils equal and round about 3 mm bilaterally and reactive. No scleral icterus. No injection or drainage. ENT: No nasal bleeding or discharge. Mucous membranes pink and moist. On NC NECK: Supple without nuchal rigidity. No thyromegaly CARDIOVASCULAR: Tachycardic, irregularly irregular rhythm, S1, S2. No S4. No murmur appreciated. RESPIRATORY: Mild expiratory wheezing throughout both lung reid. GASTROINTESTINAL: Abdomen soft, non-tender, slightly distended. Umbilical hernia noted easily reducible. MUSCULOSKELETAL: Trace-1+ BLE edema. NEUROLOGICAL: Currently oriented person place and time. Strength equal and symmetrical bilaterally. Normal sensation A/P Assessment and Plan NEURO/PSYCH: Alcohol withdrawal syndrome Alcohol dependence Polysubstance abuse including THC/amphetamines Schizoaffective schizophrenia Continue Seroquel 200 mg by mouth daily/home medication for schizophrenia -Currently on [facility] protocol for alcohol withdrawal -Precedex for alcohol withdrawal as been discontinued . Scheduled Librium started 01/13 25 mg 3 times a day -Supplement thiamine, folate and multivitamin daily Acetaminophen for fever Oxycodone for pain management RESP: Acute hypoxemic respiratory failure Bibasilar pneumonia/aspiration Acute COPD exacerbation Nasal cannula to maintain saturations greater than equal to 92%. Currently on room air Incentive spirometry while awake -DuoNeb every 6 hours scheduled and when necessary -IV Solu-Medrol 40 mg daily 2 days and discontinue CV: Atrial fibrillation with RVR Chronic atrial fibrillation Hypertension -continue PO cardizem 90 mg every 6 -Continue metoprolol cardiology switched to 50 mg 3 times a day -Attempt to avoid amiodarone due to liver cirrhosis -2d echo 65-70%, no regional wall motion abnormality mild to mod MR, Cardiology consulted by [facility]. Dr Rich -No anticoagulation due to thrombocytopenia/poor candidate GI: Hepatitis C Liver cirrhosis Constipation -Regular diet as tolerated. - IV Protonix gtt -change to 40 twice a day -Liver ultrasound. Revealed ascites -Lactulose 30 ml 2 times a day for elevated ammonia/constipation and added Xifaxan 550 twice a day MiraLAX/Colace and Senokot for bowel regimen Currently Lasix 80 twice a day/spironolactone 100 mg twice a day on hold : -Monitor renal function closely. Ellis catheter. ID: Severe sepsis Bibasilar pneumonia -Currently on broad-spectrum antibiotics with IV vancomycin and Zosyn. Azithromycin for atypical coverage. Likely de-escalate -Follow up on 01/11 blood culture, sputum culture no growth HEME: Microcytic anemia Thrombocytopenia -Thrombocytopenia most likely related to liver disease and sepsis -Monitor CBC, CMP, INR ENDO: Hypokalemia - resolved Replace electrolytes as clinically indicated. Receiving 30 mEq KCl and 1 g mag sulfate IV 1 now. PROPH: -Bilateral lower extremity SCDs. Avoid chemical prophylaxis due to thrombocytopenia. Protonix gtt-cahnge to 40mg IV q12 LINES: -Utilize peripheral IVs, central line if needed Critical Care: The total care time was 35 minutes. Time to perform other separately billable procedures was not included in the critical care time. Quinn Frias MD Jan 17, 2017 09:27
[2017-01-17] MEDS ORDERED: POTASSIUM CHLORIDE 10 MEQ CONTROLLED RELEASE TAB PO ONE (10:00)
[2017-01-17] MEDS ORDERED: DIGOXIN 0.5 MG/2 ML VIAL IV PUSH ONE (10:00)
[2017-01-17] MEDS ORDERED: MAGNESIUM SULFATE 1 GM PREMIX 100 ML IV ONE (10:00)
[2017-01-17] MEDS: THIAMINE INJ 100 MG in SODIUM CHLORIDE 0.9% INJ 100 ML IV SCH (11:14)
[2017-01-17] MEDS: AZITHROMYCIN INJ 500 MG in SODIUM CHLOR 0.9% 250 ML INJ 250 ML IV SCH (11:16)
[2017-01-17] MEDS: DOCUSATE SODIUM 100 MG CAP PO SCH ×2 (11:17→13:30)
[2017-01-17] MEDS: SENNOSIDES 8.6 MG TAB PO SCH ×2 (11:17→23:33)
[2017-01-17] MEDS: RIFAXIMIN 550 MG TAB PO SCH ×2 (11:24→20:10)
--- NOTE | 2017-01-17 12:02 | PD.CARD.PN ---
Subjective Subjective Remarks Resting comfortably, no chest pain, no shortness of breath Heart rates 150 earlier, now 120-130 Objective Medications Current Medications Medications (Trade) Dose Ordered Sig/Yi Route Start Time Stop Time Status Last Admin (Romazicon Inj) 0.2 mg Q1M PRN IV PUSH 01/11/17 09:15 (Ativan) 1 mg Q4H PRN PO 01/11/17 09:15 01/16/17 01:02 (Ativan Inj) 1 mg Q4H PRN IV PUSH 01/11/17 09:15 01/17/17 06:07 (Ativan) 2 mg Q2H PRN PO 01/11/17 09:15 (Ativan Inj) 2 mg Q2H PRN IV PUSH 01/11/17 09:15 01/14/17 02:53 (Ativan Inj) 2 mg Q1H PRN IV PUSH 01/11/17 09:15 (Ativan Inj) 2 mg Q15M PRN IV PUSH 01/11/17 09:15 01/14/17 02:13 (SEROquel) 200 mg DAILY PO 01/12/17 09:00 01/17/17 08:59 (NS Flush) 2 ml UNSCH PRN IV FLUSH 01/11/17 12:00 01/15/17 08:20 (NS Flush) 2 ml BID IV FLUSH 01/11/17 21:00 01/17/17 09:00 (Tylenol) 650 mg Q4H PRN PO 01/11/17 12:00 (Zofran Inj) 4 mg Q6H PRN IVP 01/11/17 12:00 (Colace) 100 mg Q12H PO 01/11/17 12:00 01/16/17 23:46 (Tylenol) 650 mg Q6H PRN PO 01/11/17 12:00 (Roxicodone) 10 mg Q4H PRN PO 01/11/17 12:00 (Roxicodone) 5 mg Q4H PRN PO 01/11/17 12:00 Naloxone HCl 0.4 mg 0.4 mg UNSCH PRN IV 01/11/17 12:00 (Zosyn 4.5 Gm Premix) 100 ml @ 200 mls/hr Q6H IV 01/11/17 15:00 01/17/17 09:00 (Theragran) 1 tab DAILY PO 01/11/17 13:00 01/17/17 08:59 Folic Acid 1 mg 1 mg DAILY PO 01/11/17 13:00 01/17/17 08:59 Azithromycin 500 mg/Sodium Chloride 250 ml @ 250 mls/hr Q24H IV 01/12/17 11:00 01/17/17 11:16 Thiamine HCl 100 mg/Sodium Chloride 101 ml @ 101 mls/hr DAILY IV 01/12/17 12:00 01/17/17 11:14 Potassium Chloride 100 ml @ 50 mls/hr Q2H PRN IV 01/12/17 14:00 (KCl 20 Meq Premix Inj) 100 ml @ 50 mls/hr Q2H PRN IV 01/12/17 14:00 Potassium Bicarb/ Potassium Chloride 50 meq 50 meq UNSCH PRN PO 01/12/17 14:00 01/13/17 21:41 Potassium Chloride 100 ml @ 25 mls/hr UNSCH PRN IV 01/12/17 14:00 Potassium Chloride 100 ml @ 50 mls/hr Q2H PRN IV 01/12/17 14:00 (Magnesium Sulfate Inj/NS Inj) 100 ml @ 50 mls/hr UNSCH PRN IV 01/12/17 14:00 Magnesium Oxide 800 mg 800 mg UNSCH PRN PO 01/12/17 14:00 (Magnesium Sulfate Inj/NS Inj) 100 ml @ 50 mls/hr UNSCH PRN IV 01/12/17 14:00 Potassium Phosphate 2000 mg 2,000 mg Q4H PRN PO 01/12/17 14:00 (Sodium Phosphate Inj/NS 250 ml Inj) 250 ml @ 42 mls/hr UNSCH PRN IV 01/12/17 14:00 Potassium Phosphate 2000 mg 2,000 mg UNSCH PRN PO/TUBE 01/12/17 14:00 (Potassium Phosphate Inj/NS 250 ml Inj) 260 ml @ 42 mls/hr UNSCH PRN IV 01/12/17 14:00 Chlordiazepoxide 25 mg 25 mg TID PO 01/13/17 13:00 01/17/17 08:59 (Precedex Inj/NS 250 ml Inj) 250 ml @ 0 mls/hr TITRATE IV 01/14/17 02:45 01/16/17 05:06 (Cardizem) 90 mg QID PO 01/14/17 09:00 01/17/17 08:59 Miscellaneous Information 1 Q361D XX 01/15/17 15:45 01/15/17 15:45 (Chlorhexidine 2% Cloth) 3 pack Taper DAILY@04 TOP 01/16/17 04:00 01/12/18 03:59 01/17/17 03:49 (Chlorhexidine 2% Cloth) 3 pack UNSCH PRN TOP 01/15/17 15:45 (Senokot) 17.2 mg Q12H PO 01/16/17 00:00 01/16/17 23:45 (Miralax) 17 gm BID PO 01/16/17 21:00 01/16/17 20:43 (Lopressor Inj) 5 mg Q6HR PRN IV PUSH 01/16/17 10:00 01/17/17 11:14 (Lactulose Liq) 30 ml BID PO 01/17/17 21:00 (Xifaxan) 550 mg BID PO 01/17/17 10:00 01/17/17 11:24 (SoluMEDROL INJ) 40 mg DAILY IV PUSH 01/18/17 09:00 01/20/17 08:59 (Lopressor) 50 mg Q8HR PO 01/17/17 14:00 Vital Signs / I&O Vital Signs Date Time Temp Pulse Resp B/P Pulse Ox O2 Delivery O2 Flow Rate FiO2 01/17/17 10:10 98 21 01/17/17 08:00 98.6 147 16 129/77 100 01/17/17 08:00 164 01/17/17 06:00 160 01/17/17 04:00 100 01/17/17 04:00 98.3 100 20 117/61 100 01/17/17 02:00 91 01/17/17 00:00 98.1 86 22 106/55 100 01/17/17 00:00 86 01/16/17 22:00 98 01/16/17 20:12 100 Nasal Cannula 21 01/16/17 20:00 97.9 109 24 128/71 98 01/16/17 20:00 109 01/16/17 18:00 99 01/16/17 16:00 97.8 98 12 116/76 100 01/16/17 16:00 105 01/16/17 14:00 99 01/16/17 12:00 98.0 98 12 116/76 100 01/16/17 12:00 98 I/O 01/16/17 01/16/17 01/16/17 01/17/17 01/17/17 01/17/17 07:00 15:00 23:00 07:00 15:00 23:00 Intake Total 795 ml 1064 ml 400 ml 600 ml Output Total 600 ml 1150 ml 800 ml 700 ml Balance 195 ml -86 ml -400 ml -100 ml Intake Oral 600 ml 480 ml 300 ml 600 ml IV Total 195 ml 584 ml 100 ml Output Urine Total 600 ml 1150 ml 800 ml 700 ml Stool Total 0 ml # Bowel Movements 5 Physical Exam GENERAL: NAD, AAOx3 SKIN: Warm and dry. HEAD: Atraumatic. Normocephalic. EYES: Pupils equal and round. No scleral icterus. No injection or drainage. ENT: No nasal bleeding or discharge. Mucous membranes pink and moist. NECK: Trachea midline. No JVD. CARDIOVASCULAR: Irregularly irregular, tachycardic RESPIRATORY: No accessory muscle use. Decreased breath sounds bilaterally GASTROINTESTINAL: Abdomen soft, non-tender, nondistended. Hepatic and splenic margins not palpable. MUSCULOSKELETAL: Extremities without clubbing, cyanosis, or edema. No obvious deformities. NEUROLOGICAL: Awake and alert. No obvious cranial nerve deficits. Motor grossly within normal limits. Five out of 5 muscle strength in the arms and legs. Normal speech. PSYCHIATRIC: Appropriate mood and affect; insight and judgment normal. Laboratory Laboratory Tests Test 01/17/17 05:06 White Blood Count 5.1 TH/MM3 Red Blood Count 3.35 MIL/MM3 Hemoglobin 8.5 GM/DL Hematocrit 25.5 % Mean Corpuscular Volume 76.2 FL Mean Corpuscular Hemoglobin 25.3 PG Mean Corpuscular Hemoglobin 33.3 % Concent Red Cell Distribution Width 20.8 % Platelet Count 80 TH/MM3 Mean Platelet Volume 8.9 FL Sodium Level 139 MEQ/L Potassium Level 3.8 MEQ/L Chloride Level 107 MEQ/L Carbon Dioxide Level 24.2 MEQ/L Anion Gap 8 MEQ/L Blood Urea Nitrogen 30 MG/DL Creatinine 1.15 MG/DL Estimat Glomerular Filtration 66 ML/MIN Rate Random Glucose 173 MG/DL Calcium Level 8.9 MG/DL Magnesium Level 2.0 MG/DL Assessment and Plan Problem List: (1) Atrial fibrillation with RVR (2) Thrombocytopenia (3) Sepsis (4) Anemia (5) Alcoholism (6) Cirrhosis of liver (7) Shortness of breath (8) Alcohol abuse (9) Cellulitis of right hand Assessment and Plan 1) Afib with RVR, off Cardizem drip now on PO meds... Con't Cardizem/Lopressor, will continue with Digoxin load 2) Will avoid Amiodarone with cirrhosis/ETOH history 3) Not an anticoagulation candidate due to thrombocytopenia 4) May be going through ETOH withdrawal leading to Afib with RVR Problem Qualifiers (1) Sepsis: Qualified Code: A41.9 - Sepsis, due to unspecified organism Xavi Rich DO Jan 17, 2017 12:02
[2017-01-17] MEDS: DIGOXIN 0.5 MG/2 ML VIAL IVS SCH ×2 (19:18→23:33)
[2017-01-18] VITALS (14 sets, daily range): BP systolic 103–127; BP diastolic 58–95; PULSE 92–124; RESP 11–20; TEMP 97.8–98.7; O2SAT 95–98
[2017-01-18] MEDS: RESP: ALBUTEROL 2.5 MG/IPRATROPIUM 0.5 MG NEB (SCH) NEB ×4 (03:36→20:54)
[2017-01-18] MEDS: CHLORHEXIDINE GLUCONATE 2 % 1 PACK (2 CLOTHS) TOP SCH (03:47)
[2017-01-18] MEDS: PIPERACIL-TAZO 4.5 GM PREMIX 100 ML IV SCH ×4 (03:47→21:28)
[2017-01-18] MEDS: DIGOXIN 0.5 MG/2 ML VIAL IVS SCH (05:13)
[2017-01-18] MEDS: METOPROLOL TARTRATE 50 MG TAB PO SCH ×3 (05:13→21:28)
[2017-01-18 05:15] LABS: AUTOMATED NEUTROPHIL # 3.7 TH/MM3 (1.8-7.7); BASOPHIL % 0.3 % (0.0-2.0); EOSINOPHIL % 0.1 % (0.0-4.0); HEMATOCRIT 26.6 % (39.0-51.0); LYMPHOCYTE # 0.6 TH/MM3 (1.0-4.8); MEAN CORPUSCULAR HEMOGLOBIN 24.8 PG (27.0-34.0); MEAN CORPUSCULAR HGB CONC 31.8 % (32.0-36.0); MONO % 10.9 % (0.0-8.0); NEUT % 76.7 % (16.0-70.0); PLATELET COUNT 83 TH/MM3 (150-450); RED BLOOD COUNT 3.41 MIL/MM3 (4.50-5.90); RED CELL DISTRIBUTION WIDTH 20.7 % (11.6-17.2); WHITE BLOOD COUNT 4.8 TH/MM3 (4.0-11.0)
[2017-01-18 05:17] LABS: HEMO FLAGS AUTO DIFF
[2017-01-18 05:37] LABS: ALT (GPT) 82 U/L (12-78); ANION GAP 6 MEQ/L (5-15); AST (GOT) 66 U/L (15-37); BICARBONATE 25.6 MEQ/L (21.0-32.0); BLOOD UREA NITROGEN 27 MG/DL (7-18); CHLORIDE 108 MEQ/L (98-107); GLOMERULAR FILTRATION RATE 74 ML/MIN (>89); MAGNESIUM 1.9 MG/DL (1.5-2.5); POTASSIUM 4.1 MEQ/L (3.5-5.1); SODIUM (NA) 140 MEQ/L (136-145)
[2017-01-18 05:51] LABS: ALKALINE PHOSPHATASE 127 U/L (45-117); DIGOXIN 1.4 NG/ML (0.8-2.0); TOTAL BILIRUBIN ADULT 0.6 MG/DL (0.2-1.0)
[2017-01-18 05:58] LABS: CREATINE KINASE 41 U/L (39-308)
[2017-01-18] MEDS: methylPREDNISolone SOD SUCC 40 MG/1 ML VIAL IV PUSH SCH (07:52)
[2017-01-18] MEDS: DILTIAZEM HCL 90 MG TAB PO SCH ×4 (07:53→21:28)
[2017-01-18] MEDS: QUEtiapine FUMARATE 200 MG TAB PO SCH (07:53)
[2017-01-18] MEDS: POLYETHYLENE GLYCOL 17 GM PKG PO SCH ×2 (07:53→21:00)
[2017-01-18] MEDS: FOLIC ACID 1 MG TAB PO SCH (07:54)
[2017-01-18] MEDS: LACTULOSE SYRUP 20 GM/30 ML CUP PO SCH ×2 (07:54→21:00)
[2017-01-18] MEDS: RIFAXIMIN 550 MG TAB PO SCH ×2 (07:54→21:28)
[2017-01-18] MEDS: MULTIVITAMIN TAB PO SCH (07:54)
[2017-01-18] MEDS: chlordiazePOXIDE 25 MG CAP PO SCH ×3 (07:54→18:38)
[2017-01-18 08:27] LABS: PLATELET ESTIMATE SMEAR LOW (NORMAL); PLATELET MORPHOLOGY NORMAL (NORMAL); SCAN/DIFF AUTO DIFF CONFIRMED
[2017-01-18] MEDS: SODIUM CHLORIDE 0.9% FLUSH 10 ML FLUSH IV FLUSH SCH ×2 (09:00→21:28)
--- NOTE | 2017-01-18 09:15 | PD.CARD.PN ---
Subjective Subjective Remarks Heart rates better controlled No chest pain, no shortness of breath Objective Medications Current Medications Medications (Trade) Dose Ordered Sig/Yi Route Start Time Stop Time Status Last Admin (Romazicon Inj) 0.2 mg Q1M PRN IV PUSH 01/11/17 09:15 (Ativan) 1 mg Q4H PRN PO 01/11/17 09:15 01/16/17 01:02 (Ativan Inj) 1 mg Q4H PRN IV PUSH 01/11/17 09:15 01/17/17 06:07 (Ativan) 2 mg Q2H PRN PO 01/11/17 09:15 (Ativan Inj) 2 mg Q2H PRN IV PUSH 01/11/17 09:15 01/14/17 02:53 (Ativan Inj) 2 mg Q1H PRN IV PUSH 01/11/17 09:15 01/17/17 20:12 (Ativan Inj) 2 mg Q15M PRN IV PUSH 01/11/17 09:15 01/14/17 02:13 (SEROquel) 200 mg DAILY PO 01/12/17 09:00 01/18/17 07:53 (NS Flush) 2 ml UNSCH PRN IV FLUSH 01/11/17 12:00 01/15/17 08:20 (NS Flush) 2 ml BID IV FLUSH 01/11/17 21:00 01/17/17 20:10 (Tylenol) 650 mg Q4H PRN PO 01/11/17 12:00 (Zofran Inj) 4 mg Q6H PRN IVP 01/11/17 12:00 (Colace) 100 mg Q12H PO 01/11/17 12:00 01/17/17 13:30 (Tylenol) 650 mg Q6H PRN PO 01/11/17 12:00 (Roxicodone) 10 mg Q4H PRN PO 01/11/17 12:00 (Roxicodone) 5 mg Q4H PRN PO 01/11/17 12:00 Naloxone HCl 0.4 mg 0.4 mg UNSCH PRN IV 01/11/17 12:00 (Zosyn 4.5 Gm Premix) 100 ml @ 200 mls/hr Q6H IV 01/11/17 15:00 01/18/17 07:52 (Theragran) 1 tab DAILY PO 01/11/17 13:00 01/18/17 07:54 Folic Acid 1 mg 1 mg DAILY PO 01/11/17 13:00 01/18/17 07:54 Azithromycin 500 mg/Sodium Chloride 250 ml @ 250 mls/hr Q24H IV 01/12/17 11:00 01/17/17 11:16 Thiamine HCl 100 mg/Sodium Chloride 101 ml @ 101 mls/hr DAILY IV 01/12/17 12:00 01/17/17 11:14 Potassium Chloride 100 ml @ 50 mls/hr Q2H PRN IV 01/12/17 14:00 (KCl 20 Meq Premix Inj) 100 ml @ 50 mls/hr Q2H PRN IV 01/12/17 14:00 Potassium Bicarb/ Potassium Chloride 50 meq 50 meq UNSCH PRN PO 01/12/17 14:00 01/13/17 21:41 Potassium Chloride 100 ml @ 25 mls/hr UNSCH PRN IV 01/12/17 14:00 Potassium Chloride 100 ml @ 50 mls/hr Q2H PRN IV 01/12/17 14:00 (Magnesium Sulfate Inj/NS Inj) 100 ml @ 50 mls/hr UNSCH PRN IV 01/12/17 14:00 Magnesium Oxide 800 mg 800 mg UNSCH PRN PO 01/12/17 14:00 (Magnesium Sulfate Inj/NS Inj) 100 ml @ 50 mls/hr UNSCH PRN IV 01/12/17 14:00 Potassium Phosphate 2000 mg 2,000 mg Q4H PRN PO 01/12/17 14:00 (Sodium Phosphate Inj/NS 250 ml Inj) 250 ml @ 42 mls/hr UNSCH PRN IV 01/12/17 14:00 Potassium Phosphate 2000 mg 2,000 mg UNSCH PRN PO/TUBE 01/12/17 14:00 (Potassium Phosphate Inj/NS 250 ml Inj) 260 ml @ 42 mls/hr UNSCH PRN IV 01/12/17 14:00 Chlordiazepoxide 25 mg 25 mg TID PO 01/13/17 13:00 01/18/17 07:54 (Precedex Inj/NS 250 ml Inj) 250 ml @ 0 mls/hr TITRATE IV 01/14/17 02:45 01/16/17 05:06 (Cardizem) 90 mg QID PO 01/14/17 09:00 01/18/17 07:53 Miscellaneous Information 1 Q361D XX 01/15/17 15:45 01/15/17 15:45 (Chlorhexidine 2% Cloth) 3 pack Taper DAILY@04 TOP 01/16/17 04:00 01/12/18 03:59 01/18/17 03:47 (Chlorhexidine 2% Cloth) 3 pack UNSCH PRN TOP 01/15/17 15:45 (Senokot) 17.2 mg Q12H PO 01/16/17 00:00 01/16/17 23:45 (Miralax) 17 gm BID PO 01/16/17 21:00 01/18/17 07:53 (Lopressor Inj) 5 mg Q6HR PRN IV PUSH 01/16/17 10:00 01/17/17 11:14 (Lactulose Liq) 30 ml BID PO 01/17/17 21:00 01/18/17 07:54 (Xifaxan) 550 mg BID PO 01/17/17 10:00 01/18/17 07:54 (SoluMEDROL INJ) 40 mg DAILY IV PUSH 01/18/17 09:00 01/20/17 08:59 01/18/17 07:52 (Lopressor) 50 mg Q8HR PO 01/17/17 14:00 01/18/17 05:13 Vital Signs / I&O Vital Signs Date Time Temp Pulse Resp B/P Pulse Ox O2 Delivery O2 Flow Rate FiO2 01/18/17 08:25 95 21 01/18/17 06:00 92 01/18/17 04:00 93 01/18/17 04:00 98.7 93 16 117/68 97 01/18/17 02:00 120 01/18/17 00:00 120 01/18/17 00:00 98.3 124 20 118/78 97 01/18/17 00:00 124 01/17/17 22:00 126 01/17/17 20:52 98 21 01/17/17 20:00 124 01/17/17 20:00 98.7 124 20 125/93 98 01/17/17 18:00 106 01/17/17 16:00 98.8 106 20 91/59 98 01/17/17 16:00 96 01/17/17 14:00 114 01/17/17 12:00 98.7 102 18 114/66 98 01/17/17 12:00 152 01/17/17 10:10 98 21 01/17/17 10:00 146 I/O 01/17/17 01/17/17 01/17/17 01/18/17 01/18/17 01/18/17 07:00 15:00 23:00 07:00 15:00 23:00 Intake Total 600 ml 1100 ml 1340 ml Output Total 700 ml 620 ml 1300 ml Balance -100 ml 480 ml 40 ml Intake Oral 600 ml 800 ml 600 ml IV Total 300 ml 740 ml Output Urine Total 700 ml 620 ml 1300 ml # Bowel Movements 5 2 Physical Exam GENERAL: NAD, AAOx3 SKIN: Warm and dry. HEAD: Atraumatic. Normocephalic. EYES: Pupils equal and round. No scleral icterus. No injection or drainage. ENT: No nasal bleeding or discharge. Mucous membranes pink and moist. NECK: Trachea midline. No JVD. CARDIOVASCULAR: Irregularly irregular RESPIRATORY: No accessory muscle use. Decreased breath sounds bilaterally GASTROINTESTINAL: Abdomen soft, non-tender, nondistended. Hepatic and splenic margins not palpable. MUSCULOSKELETAL: Extremities without clubbing, cyanosis, or edema. No obvious deformities. NEUROLOGICAL: Awake and alert. No obvious cranial nerve deficits. Motor grossly within normal limits. Five out of 5 muscle strength in the arms and legs. Normal speech. PSYCHIATRIC: Appropriate mood and affect; insight and judgment normal. Laboratory Laboratory Tests Test 01/18/17 04:35 White Blood Count 4.8 TH/MM3 Red Blood Count 3.41 MIL/MM3 Hemoglobin 8.5 GM/DL Hematocrit 26.6 % Mean Corpuscular Volume 78.0 FL Mean Corpuscular Hemoglobin 24.8 PG Mean Corpuscular Hemoglobin 31.8 % Concent Red Cell Distribution Width 20.7 % Platelet Count 83 TH/MM3 Mean Platelet Volume 9.2 FL Neutrophils (%) (Auto) 76.7 % Lymphocytes (%) (Auto) 12.0 % Monocytes (%) (Auto) 10.9 % Eosinophils (%) (Auto) 0.1 % Basophils (%) (Auto) 0.3 % Neutrophils # (Auto) 3.7 TH/MM3 Lymphocytes # (Auto) 0.6 TH/MM3 Monocytes # (Auto) 0.5 TH/MM3 Eosinophils # (Auto) 0.0 TH/MM3 Basophils # (Auto) 0.0 TH/MM3 CBC Comment AUTO DIFF Differential Comment AUTO DIFF CONFIRMED Platelet Estimate LOW Platelet Morphology Comment NORMAL Sodium Level 140 MEQ/L Potassium Level 4.1 MEQ/L Chloride Level 108 MEQ/L Carbon Dioxide Level 25.6 MEQ/L Anion Gap 6 MEQ/L Blood Urea Nitrogen 27 MG/DL Creatinine 1.04 MG/DL Estimat Glomerular Filtration 74 ML/MIN Rate Random Glucose 106 MG/DL Calcium Level 8.7 MG/DL Phosphorus Level 2.4 MG/DL Magnesium Level 1.9 MG/DL Total Bilirubin 0.6 MG/DL Aspartate Amino Transf 66 U/L (AST/SGOT) Alanine Aminotransferase 82 U/L (ALT/SGPT) Alkaline Phosphatase 127 U/L Ammonia 33 MCMOL/L Total Creatine Kinase 41 U/L Total Protein 7.2 GM/DL Albumin 2.2 GM/DL Digoxin Level 1.4 NG/ML Assessment and Plan Problem List: (1) Atrial fibrillation with RVR (2) Thrombocytopenia (3) Sepsis (4) Anemia (5) Alcoholism (6) Cirrhosis of liver (7) Shortness of breath (8) Alcohol abuse (9) Cellulitis of right hand Assessment and Plan 1) Afib somewhat controlled, con't Cardizem/Lopressor, load with Digoxin, will start Digoxin at a small dose daily and check a level in 1-2 weeks 2) Will avoid Amiodarone with cirrhosis/ETOH history 3) Not an anticoagulation candidate due to thrombocytopenia 4) May be going through ETOH withdrawal leading to Afib with RVR Problem Qualifiers (1) Sepsis: Qualified Code: A41.9 - Sepsis, due to unspecified organism Xavi Rich DO Jan 18, 2017 09:15
[2017-01-18] MEDS: THIAMINE INJ 100 MG in SODIUM CHLORIDE 0.9% INJ 100 ML IV SCH (09:51)
[2017-01-18] MEDS: AZITHROMYCIN INJ 500 MG in SODIUM CHLOR 0.9% 250 ML INJ 250 ML IV SCH (10:36)
[2017-01-18] MEDS: DIGOXIN 0.125 MG TAB PO SCH (10:36)
[2017-01-18] MEDS: DOCUSATE SODIUM 100 MG CAP PO SCH (12:53)
[2017-01-18] MEDS: SENNOSIDES 8.6 MG TAB PO SCH (12:54)
--- NOTE | 2017-01-18 13:44 | HHI.CCPN ---
Subjective Remarks/Hospital Course Patient is a 52-year-old male with history of liver cirrhosis, continued alcohol abuse, alcohol dependence, COPD who presented to the hospital feeling unwell and also for possible skin infection involving his hands per admit note. He stated that he had been drinking up to 2 L of bourbon daily and stopped prior to the day of admission. Patient has history of alcohol withdrawal seizures also. Patient was admitted to the hospital service with A. fib with RVR, early alcohol withdrawal and sepsis secondary to pneumonia and cellulitis. Overnight patient was getting increasingly agitated today a.m. oxygen requirements went up to 8 L by simple mask. ABG showed PO2 on 8L was only 51. Chest x-ray today showed increasing bibasilar right more than left infiltrates. With hypoxemic respiratory failure, alcohol withdrawal patient was transferred to ICU and critical care medicine was consulted. I evaluated the patient in ICU. He is in moderate distress, intermittently agitated. He is currently in atrial fibrillation with rates varying from 140-170 on Cardizem drip. Additional 20 mg IV push of Cardizem and 5 mg IV push of metoprolol given and Cardizem infusion was increased to 20 mg per hour. Cannot anticoagulate with acute on chronic thrombocytopenia. I would also try to avoid amiodarone due to liver cirrhosis. 2-D echo shows normal ejection fraction and mild to moderate mitral regurgitation. 01/13: Remains sedated with Precedex for alcohol withdrawal. Chest x-ray shows unchanged right more than left infiltrates. Lab work is pending today. CBC and known showed hemoglobin of 5.4 but repeat showed 8.2 and so no transfusion was given 01/14: Agitated delirium is overnight Precedex had to be restarted today morning Precedex is 1.4 g per KG per hour. RN starting to wean Precedex. Breathing comfortably. Platelets and hemoglobin stable 01/15: Afebrile. Code angel called due to agitation today. Tolerating diet. Remains on nasal cannula. Heart rate relatively well controlled. 01/16: Afebrile. Heart rate being rate controlled A. fib and RVR. Metoprolol increased to 50 mg twice a day per cardiology. Appears comfortable this AM. 01/17: Appears much more comfortable this AM. Off all sedation. Heart rate currently 160s - 170s. Hemodynamically stable. Receiving rate control medications currently. Also BM. Tolerating diet. Subjective 01/18: Currently rate controlled A. fib. Less delirious. Required Ativan overnight again. Tolerating diet. Objective Vital Signs Date Time Temp Pulse Resp B/P Pulse Ox O2 Delivery O2 Flow Rate FiO2 01/18/17 12:00 93 01/18/17 12:00 98.4 20 103/58 96 01/18/17 08:25 21 01/16/17 20:12 Nasal Cannula Intake and Output 01/17/17 01/17/17 01/18/17 08:00 16:00 00:00 Intake Total 600 ml 1100 ml Output Total 700 ml 620 ml Balance -100 ml 480 ml Result Diagram: 01/18/17 0435 01/18/17 0435 Imaging Last Impressions Abdomen X-Ray 01/16/17 0000 Signed Impressions: Service Date/Time: Monday, January 16, 2017 09:28 - CONCLUSION: Unremarkable study except for stool. Anjelica Briones MD Chest X-Ray 01/15/17 0600 Signed Impressions: Service Date/Time: Sunday, January 15, 2017 03:43 - CONCLUSION: 1. Cardiomegaly. Improving pulmonary edema. Jesus Miller MD Liver Ultrasound 01/12/17 0000 Signed Impressions: Service Date/Time: Thursday, January 12, 2017 10:59 - CONCLUSION: 1. Cirrhosis and portal hypertension. 2. Hepatosplenomegaly. 3. Trace ascites. 4. Right pleural effusion. 5. Common duct mildly prominent at 9 mm. Karlos Guillermo MD Objective Remarks GENERAL: 52-year-old male, disheveled currently up in bed in chair distress SKIN: Warm and moist multiple skin lesions on hand HEAD: Normocephalic. EYES: Pupils equal and round about 3 mm bilaterally and reactive. No scleral icterus. No injection or drainage. ENT: No nasal bleeding or discharge. Mucous membranes pink and moist. On NC NECK: Supple without nuchal rigidity. No thyromegaly CARDIOVASCULAR: Tachycardic, irregularly irregular rhythm, S1, S2. No S4. No murmur appreciated. RESPIRATORY: Mild expiratory wheezing throughout both lung reid. GASTROINTESTINAL: Abdomen soft, non-tender, slightly distended. Umbilical hernia noted easily reducible. MUSCULOSKELETAL: Trace-1+ BLE edema. NEUROLOGICAL: Currently oriented person place and time. Strength equal and symmetrical bilaterally. Normal sensation A/P Assessment and Plan NEURO/PSYCH: Alcohol withdrawal syndrome Alcohol dependence Polysubstance abuse including THC/amphetamines Schizoaffective schizophrenia Continue Seroquel 200 mg by mouth daily/home medication for schizophrenia -Currently on [facility] protocol for alcohol withdrawal. 3 mg Ativan overnight -Precedex for alcohol withdrawal has been discontinued . Scheduled Librium started 01/13 25 mg 3 times a day -Supplement thiamine, folate and multivitamin daily Acetaminophen for fever Oxycodone for pain management RESP: Acute hypoxemic respiratory failure Bibasilar pneumonia/aspiration Acute COPD exacerbation Nasal cannula to maintain saturations greater than equal to 92%. Currently on room air Incentive spirometry while awake -DuoNeb every 6 hours scheduled and when necessary -IV Solu-Medrol 40 mg daily 2 days and discontinue CV: Atrial fibrillation with RVR Chronic atrial fibrillation Hypertension -continue PO cardizem 90 mg every 6 -Continue metoprolol cardiology switched to 50 mg 3 times a day Currently digoxin 0.125 mg by mouth daily. Last level I.4 this a.m. -Attempt to avoid amiodarone due to liver cirrhosis -2d echo 65-70%, no regional wall motion abnormality mild to mod MR, Cardiology consulted by [facility]. Dr Rich -No anticoagulation due to thrombocytopenia/poor candidate GI: Hepatitis C Liver cirrhosis Constipation -Regular diet as tolerated. Currently in Protonix 40 mg twice a day -Liver ultrasound. Revealed ascites -Lactulose 30 ml 2 times a day for elevated ammonia/constipation and added Xifaxan 550 twice a day MiraLAX/Colace and Senokot for bowel regimen Currently Lasix 80 twice a day/spironolactone 100 mg twice a day on hold : -Monitor renal function closely. Ellis catheter. ID: Severe sepsis Bibasilar pneumonia -Currently on broad-spectrum antibiotics with IV vancomycin and Zosyn. Azithromycin for atypical coverage. Likely de-escalate -Follow up on 01/11 blood culture, sputum culture no growth HEME: Microcytic anemia Thrombocytopenia -Thrombocytopenia most likely related to liver disease and sepsis -Monitor CBC, CMP, INR ENDO: Hypokalemia - resolved Replace electrolytes as clinically indicated. Receiving 30 mEq KCl and 1 g mag sulfate IV 1 now. PROPH: -Bilateral lower extremity SCDs. Avoid chemical prophylaxis due to thrombocytopenia. Protonix GI prophylaxis LINES: -Utilize peripheral IVs, central line if needed Critical Care: The total care time was 35 minutes. Time to perform other separately billable procedures was not included in the critical care time. Quinn Frias MD Jan 18, 2017 13:43
[2017-01-18] MEDS: LORazepam 2 MG/ML VIAL IV PUSH PRN (21:27)
[2017-01-19] VITALS (14 sets, daily range): BP systolic 95–127; BP diastolic 60–81; PULSE 86–123; RESP 10–18; TEMP 97.8–98.4; O2SAT 94–98
[2017-01-19] MEDS: PIPERACIL-TAZO 4.5 GM PREMIX 100 ML IV SCH ×4 (03:00→20:32)
[2017-01-19] MEDS: RESP: ALBUTEROL 2.5 MG/IPRATROPIUM 0.5 MG NEB (SCH) NEB ×3 (03:44→21:40)
[2017-01-19] MEDS: CHLORHEXIDINE GLUCONATE 2 % 1 PACK (2 CLOTHS) TOP SCH (04:00)
[2017-01-19 05:14] LABS: HEMATOCRIT 29.8 % (39.0-51.0); MEAN CELL VOLUME 76.2 FL (80.0-100.0); MEAN CORPUSCULAR HGB CONC 32.8 % (32.0-36.0); PLATELET COUNT 93 TH/MM3 (150-450); RED BLOOD COUNT 3.91 MIL/MM3 (4.50-5.90); WHITE BLOOD COUNT 5.7 TH/MM3 (4.0-11.0)
[2017-01-19 05:16] LABS: REVIEW FLAG FINAL
[2017-01-19 05:42] LABS: BICARBONATE 25.4 MEQ/L (21.0-32.0); POTASSIUM 4.3 MEQ/L (3.5-5.1)
[2017-01-19] MEDS: METOPROLOL TARTRATE 50 MG TAB PO SCH ×4 (06:30→23:05)
[2017-01-19] MEDS: THIAMINE INJ 100 MG in SODIUM CHLORIDE 0.9% INJ 100 ML IV SCH (08:29)
[2017-01-19] MEDS: chlordiazePOXIDE 25 MG CAP PO SCH ×3 (08:30→17:31)
[2017-01-19] MEDS: DIGOXIN 0.125 MG TAB PO SCH (08:30)
[2017-01-19] MEDS: SODIUM CHLORIDE 0.9% FLUSH 10 ML FLUSH IV FLUSH SCH ×2 (08:30→20:32)
[2017-01-19] MEDS: FOLIC ACID 1 MG TAB PO SCH (08:30)
[2017-01-19] MEDS: QUEtiapine FUMARATE 200 MG TAB PO SCH (08:30)
[2017-01-19] MEDS: methylPREDNISolone SOD SUCC 40 MG/1 ML VIAL IV PUSH SCH (08:30)
[2017-01-19] MEDS: LACTULOSE SYRUP 20 GM/30 ML CUP PO SCH ×2 (08:30→20:31)
[2017-01-19] MEDS: MULTIVITAMIN TAB PO SCH (08:30)
[2017-01-19] MEDS: RIFAXIMIN 550 MG TAB PO SCH ×2 (08:30→20:31)
[2017-01-19] MEDS: DILTIAZEM HCL 90 MG TAB PO SCH ×4 (08:30→20:31)
[2017-01-19] MEDS: POLYETHYLENE GLYCOL 17 GM PKG PO SCH (08:31)
[2017-01-19] MEDS: AZITHROMYCIN INJ 500 MG in SODIUM CHLOR 0.9% 250 ML INJ 250 ML IV SCH (11:25)
[2017-01-19] MEDS: DOCUSATE SODIUM 100 MG CAP PO SCH ×3 (11:25→23:05)
[2017-01-19] MEDS: SENNOSIDES 8.6 MG TAB PO SCH ×3 (11:26→23:05)
[2017-01-19] MEDS: LORazepam 2 MG/ML VIAL IV PUSH PRN ×3 (14:23→20:32)
--- NOTE | 2017-01-19 16:52 | PD.CARD.PN ---
Subjective Subjective Remarks No chest pain, no shortness of breath, resting comfortably Objective Medications Current Medications Medications (Trade) Dose Ordered Sig/Yi Route Start Time Stop Time Status Last Admin (Romazicon Inj) 0.2 mg Q1M PRN IV PUSH 01/11/17 09:15 (Ativan) 1 mg Q4H PRN PO 01/11/17 09:15 01/16/17 01:02 (Ativan Inj) 1 mg Q4H PRN IV PUSH 01/11/17 09:15 01/19/17 14:23 (Ativan) 2 mg Q2H PRN PO 01/11/17 09:15 (Ativan Inj) 2 mg Q2H PRN IV PUSH 01/11/17 09:15 01/19/17 16:38 (Ativan Inj) 2 mg Q1H PRN IV PUSH 01/11/17 09:15 01/17/17 20:12 (Ativan Inj) 2 mg Q15M PRN IV PUSH 01/11/17 09:15 01/14/17 02:13 (SEROquel) 200 mg DAILY PO 01/12/17 09:00 01/19/17 08:30 (NS Flush) 2 ml UNSCH PRN IV FLUSH 01/11/17 12:00 01/15/17 08:20 (NS Flush) 2 ml BID IV FLUSH 01/11/17 21:00 01/19/17 08:30 (Tylenol) 650 mg Q4H PRN PO 01/11/17 12:00 (Zofran Inj) 4 mg Q6H PRN IVP 01/11/17 12:00 (Colace) 100 mg Q12H PO 01/11/17 12:00 01/18/17 12:53 (Tylenol) 650 mg Q6H PRN PO 01/11/17 12:00 (Roxicodone) 10 mg Q4H PRN PO 01/11/17 12:00 (Roxicodone) 5 mg Q4H PRN PO 01/11/17 12:00 Naloxone HCl 0.4 mg 0.4 mg UNSCH PRN IV 01/11/17 12:00 (Zosyn 4.5 Gm Premix) 100 ml @ 200 mls/hr Q6H IV 01/11/17 15:00 01/19/17 14:22 (Theragran) 1 tab DAILY PO 01/11/17 13:00 01/19/17 08:30 Folic Acid 1 mg 1 mg DAILY PO 01/11/17 13:00 01/19/17 08:30 Azithromycin 500 mg/Sodium Chloride 250 ml @ 250 mls/hr Q24H IV 01/12/17 11:00 01/19/17 11:25 Thiamine HCl 100 mg/Sodium Chloride 101 ml @ 101 mls/hr DAILY IV 01/12/17 12:00 01/19/17 08:29 Potassium Chloride 100 ml @ 50 mls/hr Q2H PRN IV 01/12/17 14:00 (KCl 20 Meq Premix Inj) 100 ml @ 50 mls/hr Q2H PRN IV 01/12/17 14:00 Potassium Bicarb/ Potassium Chloride 50 meq 50 meq UNSCH PRN PO 01/12/17 14:00 01/13/17 21:41 Potassium Chloride 100 ml @ 25 mls/hr UNSCH PRN IV 01/12/17 14:00 Potassium Chloride 100 ml @ 50 mls/hr Q2H PRN IV 01/12/17 14:00 (Magnesium Sulfate Inj/NS Inj) 100 ml @ 50 mls/hr UNSCH PRN IV 01/12/17 14:00 Magnesium Oxide 800 mg 800 mg UNSCH PRN PO 01/12/17 14:00 (Magnesium Sulfate Inj/NS Inj) 100 ml @ 50 mls/hr UNSCH PRN IV 01/12/17 14:00 Potassium Phosphate 2000 mg 2,000 mg Q4H PRN PO 01/12/17 14:00 (Sodium Phosphate Inj/NS 250 ml Inj) 250 ml @ 42 mls/hr UNSCH PRN IV 01/12/17 14:00 Potassium Phosphate 2000 mg 2,000 mg UNSCH PRN PO/TUBE 01/12/17 14:00 (Potassium Phosphate Inj/NS 250 ml Inj) 260 ml @ 42 mls/hr UNSCH PRN IV 01/12/17 14:00 Chlordiazepoxide 25 mg 25 mg TID PO 01/13/17 13:00 01/19/17 13:06 (Precedex Inj/NS 250 ml Inj) 250 ml @ 0 mls/hr TITRATE IV 01/14/17 02:45 01/16/17 05:06 (Cardizem) 90 mg QID PO 01/14/17 09:00 01/19/17 13:06 Miscellaneous Information 1 Q361D XX 01/15/17 15:45 01/15/17 15:45 (Chlorhexidine 2% Cloth) 3 pack Taper DAILY@04 TOP 01/16/17 04:00 01/12/18 03:59 01/19/17 04:00 (Chlorhexidine 2% Cloth) 3 pack UNSCH PRN TOP 01/15/17 15:45 (Senokot) 17.2 mg Q12H PO 01/16/17 00:00 01/18/17 12:54 (Miralax) 17 gm BID PO 01/16/17 21:00 01/18/17 07:53 (Lopressor Inj) 5 mg Q6HR PRN IV PUSH 01/16/17 10:00 01/17/17 11:14 (Lactulose Liq) 30 ml BID PO 01/17/17 21:00 01/18/17 07:54 (Xifaxan) 550 mg BID PO 01/17/17 10:00 01/19/17 08:30 (SoluMEDROL INJ) 40 mg DAILY IV PUSH 01/18/17 09:00 01/20/17 08:59 01/19/17 08:30 (Lopressor) 50 mg Q8HR PO 01/17/17 14:00 01/19/17 13:51 (Lanoxin) 0.125 mg DAILY PO 01/18/17 10:15 01/19/17 08:30 Vital Signs / I&O Vital Signs Date Time Temp Pulse Resp B/P Pulse Ox O2 Delivery O2 Flow Rate FiO2 01/19/17 16:00 98.4 123 15 118/81 94 01/19/17 16:00 123 01/19/17 14:00 105 01/19/17 12:00 98.1 103 10 95/63 97 01/19/17 12:00 103 01/19/17 10:47 96 01/19/17 10:00 117 01/19/17 08:00 106 01/19/17 08:00 98.4 117 12 127/78 97 01/19/17 06:00 97 01/19/17 04:00 98.2 90 10 119/60 97 01/19/17 04:00 90 01/19/17 02:00 102 01/19/17 00:00 86 01/19/17 00:00 97.8 86 18 119/72 96 01/18/17 22:00 101 01/18/17 20:54 97 21 01/18/17 20:00 96 01/18/17 20:00 97.8 96 11 110/61 98 01/18/17 18:00 99 I/O 01/18/17 01/18/17 01/18/17 01/19/17 01/19/17 01/19/17 07:00 15:00 23:00 07:00 15:00 23:00 Intake Total 1340 ml 1300 ml 628 ml 354 ml 975 ml Output Total 1300 ml 1000 ml 801 ml 700 ml 1301 ml Balance 40 ml 300 ml -173 ml -346 ml -326 ml Intake Oral 600 ml 800 ml 480 ml 240 ml 700 ml IV Total 740 ml 500 ml 148 ml 114 ml 275 ml Output Urine Total 1300 ml 1000 ml 800 ml 700 ml 1300 ml Stool Total 1 ml 0 ml 1 ml Physical Exam GENERAL: NAD, AAOx3 SKIN: Warm and dry. HEAD: Atraumatic. Normocephalic. EYES: Pupils equal and round. No scleral icterus. No injection or drainage. ENT: No nasal bleeding or discharge. Mucous membranes pink and moist. NECK: Trachea midline. No JVD. CARDIOVASCULAR: Irregularly irregular RESPIRATORY: No accessory muscle use. Decreased breath sounds bilaterally GASTROINTESTINAL: Abdomen soft, non-tender, nondistended. Hepatic and splenic margins not palpable. MUSCULOSKELETAL: Extremities without clubbing, cyanosis, or edema. No obvious deformities. NEUROLOGICAL: Awake and alert. No obvious cranial nerve deficits. Motor grossly within normal limits. Five out of 5 muscle strength in the arms and legs. Normal speech. PSYCHIATRIC: Appropriate mood and affect; insight and judgment normal. Laboratory Laboratory Tests Test 01/19/17 04:57 White Blood Count 5.7 TH/MM3 Red Blood Count 3.91 MIL/MM3 Hemoglobin 9.8 GM/DL Hematocrit 29.8 % Mean Corpuscular Volume 76.2 FL Mean Corpuscular Hemoglobin 25.0 PG Mean Corpuscular Hemoglobin 32.8 % Concent Red Cell Distribution Width 21.0 % Platelet Count 93 TH/MM3 Mean Platelet Volume 9.3 FL Sodium Level 137 MEQ/L Potassium Level 4.3 MEQ/L Chloride Level 103 MEQ/L Carbon Dioxide Level 25.4 MEQ/L Anion Gap 9 MEQ/L Blood Urea Nitrogen 25 MG/DL Creatinine 1.09 MG/DL Estimat Glomerular Filtration 70 ML/MIN Rate Random Glucose 160 MG/DL Calcium Level 8.7 MG/DL Assessment and Plan Problem List: (1) Atrial fibrillation with RVR (2) Thrombocytopenia (3) Sepsis (4) Anemia (5) Alcoholism (6) Cirrhosis of liver (7) Shortness of breath (8) Alcohol abuse (9) Cellulitis of right hand Assessment and Plan 1) Afib somewhat controlled, con't Cardizem/Lopressor, loaded with Digoxin, Digoxin small dose daily and check a level in 1-2 weeks 2) Will avoid Amiodarone with cirrhosis/ETOH history 3) Not an anticoagulation candidate due to thrombocytopenia 4) May be going through ETOH withdrawal leading to Afib with RVR 5) Will attempt to increase Lopressor to Q6 Problem Qualifiers (1) Sepsis: Qualified Code: A41.9 - Sepsis, due to unspecified organism Xavi Rich DO Jan 19, 2017 16:52
--- NOTE | 2017-01-19 18:32 | HHI.CCPN ---
Subjective Remarks/Hospital Course Patient is a 52-year-old male with history of liver cirrhosis, continued alcohol abuse, alcohol dependence, COPD who presented to the hospital feeling unwell and also for possible skin infection involving his hands per admit note. He stated that he had been drinking up to 2 L of bourbon daily and stopped prior to the day of admission. Patient has history of alcohol withdrawal seizures also. Patient was admitted to the hospital service with A. fib with RVR, early alcohol withdrawal and sepsis secondary to pneumonia and cellulitis. Overnight patient was getting increasingly agitated today a.m. oxygen requirements went up to 8 L by simple mask. ABG showed PO2 on 8L was only 51. Chest x-ray today showed increasing bibasilar right more than left infiltrates. With hypoxemic respiratory failure, alcohol withdrawal patient was transferred to ICU and critical care medicine was consulted. I evaluated the patient in ICU. He is in moderate distress, intermittently agitated. He is currently in atrial fibrillation with rates varying from 140-170 on Cardizem drip. Additional 20 mg IV push of Cardizem and 5 mg IV push of metoprolol given and Cardizem infusion was increased to 20 mg per hour. Cannot anticoagulate with acute on chronic thrombocytopenia. I would also try to avoid amiodarone due to liver cirrhosis. 2-D echo shows normal ejection fraction and mild to moderate mitral regurgitation. 01/13: Remains sedated with Precedex for alcohol withdrawal. Chest x-ray shows unchanged right more than left infiltrates. Lab work is pending today. CBC and known showed hemoglobin of 5.4 but repeat showed 8.2 and so no transfusion was given 01/14: Agitated delirium is overnight Precedex had to be restarted today morning Precedex is 1.4 g per KG per hour. RN starting to wean Precedex. Breathing comfortably. Platelets and hemoglobin stable 01/15: Afebrile. Code angel called due to agitation today. Tolerating diet. Remains on nasal cannula. Heart rate relatively well controlled. 01/16: Afebrile. Heart rate being rate controlled A. fib and RVR. Metoprolol increased to 50 mg twice a day per cardiology. Appears comfortable this AM. 01/17: Appears much more comfortable this AM. Off all sedation. Heart rate currently 160s - 170s. Hemodynamically stable. Receiving rate control medications currently. Also BM. Tolerating diet. 01/18: Currently rate controlled A. fib. Less delirious. Required Ativan overnight again. Tolerating diet. Subjective 01/19: .Heart rate improved heart rate Control digoxin increased metoprolol. Received 3 doses of Ativan throughout the day today. Hemodynamically stable. Tolerating diet. Objective Vital Signs Date Time Temp Pulse Resp B/P Pulse Ox O2 Delivery O2 Flow Rate FiO2 01/19/17 18:00 99 01/19/17 16:00 98.4 15 118/81 94 01/18/17 20:54 21 01/16/17 20:12 Nasal Cannula Intake and Output 01/18/17 01/18/17 01/19/17 08:00 16:00 00:00 Intake Total 1340 ml 1300 ml 628 ml Output Total 1300 ml 1000 ml 801 ml Balance 40 ml 300 ml -173 ml Result Diagram: 01/19/17 0457 01/19/17 0457 Imaging Last Impressions Abdomen X-Ray 01/16/17 0000 Signed Impressions: Service Date/Time: Monday, January 16, 2017 09:28 - CONCLUSION: Unremarkable study except for stool. KLuisa Briones MD Chest X-Ray 01/15/17 0600 Signed Impressions: Service Date/Time: Sunday, January 15, 2017 03:43 - CONCLUSION: 1. Cardiomegaly. Improving pulmonary edema. Jesus Miller MD Liver Ultrasound 01/12/17 0000 Signed Impressions: Service Date/Time: Thursday, January 12, 2017 10:59 - CONCLUSION: 1. Cirrhosis and portal hypertension. 2. Hepatosplenomegaly. 3. Trace ascites. 4. Right pleural effusion. 5. Common duct mildly prominent at 9 mm. Karlos Guillermo MD Objective Remarks GENERAL: 52-year-old male, disheveled currently up in bed in chair distress SKIN: Warm and moist multiple skin lesions on hand HEAD: Normocephalic. EYES: Pupils equal and round about 3 mm bilaterally and reactive. No scleral icterus. No injection or drainage. ENT: No nasal bleeding or discharge. Mucous membranes pink and moist. On NC NECK: Supple without nuchal rigidity. No thyromegaly CARDIOVASCULAR: Tachycardic, irregularly irregular rhythm, S1, S2. No S4. No murmur appreciated. RESPIRATORY: Mild expiratory wheezing throughout both lung reid. GASTROINTESTINAL: Abdomen soft, non-tender, slightly distended. Umbilical hernia noted easily reducible. MUSCULOSKELETAL: Trace-1+ BLE edema. NEUROLOGICAL: Currently oriented person place and time. Strength equal and symmetrical bilaterally. Normal sensation A/P Assessment and Plan NEURO/PSYCH: Alcohol withdrawal syndrome Alcohol dependence Polysubstance abuse including THC/amphetamines Schizoaffective schizophrenia Continue Seroquel 200 mg by mouth daily/home medication for schizophrenia -Currently on CIWA protocol for alcohol withdrawal. 3 mg Ativan today -Precedex for alcohol withdrawal has been discontinued . Scheduled Librium started 01/13 25 mg 3 times a day -Supplement thiamine, folate and multivitamin daily Acetaminophen for fever Oxycodone for pain management RESP: Acute hypoxemic respiratory failure Bibasilar pneumonia/aspiration Acute COPD exacerbation Nasal cannula to maintain saturations greater than equal to 92%. Currently on room air Incentive spirometry while awake -DuoNeb every 6 hours scheduled and when necessary -IV Solu-Medrol 40 mg daily 2 days and discontinue 01/21 CV: Atrial fibrillation with RVR Chronic atrial fibrillation Hypertension -continue PO cardizem 90 mg every 6 -Continue metoprolol cardiology switched to 50 mg 4 times a day Currently digoxin 0.125 mg by mouth daily. Last level I.4 this a.m. -Attempt to avoid amiodarone due to liver cirrhosis -2d echo 65-70%, no regional wall motion abnormality mild to mod MR, Cardiology consulted by [facility]. Dr Rich -No anticoagulation due to thrombocytopenia/poor candidate GI: Hepatitis C Liver cirrhosis Constipation -Regular diet as tolerated. Currently in Protonix 40 mg twice a day -Liver ultrasound. Revealed ascites -Lactulose 30 ml 2 times a day for elevated ammonia/constipation and added Xifaxan 550 twice a day MiraLAX/Colace and Senokot for bowel regimen Currently Lasix 80 twice a day/spironolactone 100 mg twice a day on hold : -Monitor renal function closely. Ellis catheter. ID: Severe sepsis Bibasilar pneumonia -Currently on broad-spectrum antibiotics with IV vancomycin and Zosyn. -Follow up on 01/11 blood culture, sputum culture no growth HEME: Microcytic anemia Thrombocytopenia -Thrombocytopenia most likely related to liver disease and sepsis -Monitor CBC, CMP, INR ENDO: Hypokalemia - resolved Replace electrolytes as clinically indicated. Receiving 30 mEq KCl and 1 g mag sulfate IV 1 now. PROPH: -Bilateral lower extremity SCDs. Avoid chemical prophylaxis due to thrombocytopenia. Protonix GI prophylaxis LINES: -Utilize peripheral IVs, central line if needed Critical Care: The total care time was 35 minutes. Time to perform other separately billable procedures was not included in the critical care time. Patient is stable from a critical care medicine standpoint. Assign care to hospitalist in a.m. 01/20. Quinn Frias MD Jan 19, 2017 18:32 Quinn Frias MD Jan 19, 2017 18:32
--- NOTE | 2017-01-19 18:36 | PD.TRANSFR ---
Transfer Summary Admission Date Jan 11, 2017 at 09:20 Transfer Date: Jan 19, 2017 Admitting Diagnosis sepsis, rule out endocarditis, A. fib with RVR Diagnoses: (1) Alcohol-induced mood disorder Diagnosis: Principal (2) Encephalopathy acute Diagnosis: Principal (3) Hypertensive urgency Diagnosis: Principal (4) bipolar affective disorder Diagnosis: Principal (5) Alcohol dependence Diagnosis: Principal Significant Findings None Transfer Summary/Subjective NEURO/PSYCH: Alcohol withdrawal syndrome Alcohol dependence Polysubstance abuse including THC/amphetamines Schizoaffective schizophrenia Continue Seroquel 200 mg by mouth daily/home medication for schizophrenia -Currently on [facility] protocol for alcohol withdrawal. 3 mg Ativan today -Precedex for alcohol withdrawal has been discontinued . Scheduled Librium started 01/13 25 mg 3 times a day -Supplement thiamine, folate and multivitamin daily Acetaminophen for fever Oxycodone for pain management RESP: Acute hypoxemic respiratory failure Bibasilar pneumonia/aspiration Acute COPD exacerbation Nasal cannula to maintain saturations greater than equal to 92%. Currently on room air Incentive spirometry while awake -DuoNeb every 6 hours scheduled and when necessary -IV Solu-Medrol 40 mg daily 2 days and discontinue 01/21 CV: Atrial fibrillation with RVR Chronic atrial fibrillation Hypertension -continue PO cardizem 90 mg every 6 -Continue metoprolol cardiology switched to 50 mg 4 times a day Currently digoxin 0.125 mg by mouth daily. Last level I.4 this a.m. -Attempt to avoid amiodarone due to liver cirrhosis -2d echo 65-70%, no regional wall motion abnormality mild to mod MR, Cardiology consulted by [facility]. Dr Rich -No anticoagulation due to thrombocytopenia/poor candidate GI: Hepatitis C Liver cirrhosis Constipation -Regular diet as tolerated. Currently in Protonix 40 mg twice a day -Liver ultrasound. Revealed ascites -Lactulose 30 ml 2 times a day for elevated ammonia/constipation and added Xifaxan 550 twice a day MiraLAX/Colace and Senokot for bowel regimen Currently Lasix 80 twice a day/spironolactone 100 mg twice a day on hold : -Monitor renal function closely. Ellis catheter. ID: Severe sepsis Bibasilar pneumonia -Currently on broad-spectrum antibiotics with IV vancomycin and Zosyn. -Follow up on 01/11 blood culture, sputum culture no growth HEME: Microcytic anemia Thrombocytopenia -Thrombocytopenia most likely related to liver disease and sepsis -Monitor CBC, CMP, INR ENDO: Hypokalemia - resolved Replace electrolytes as clinically indicated. Receiving 30 mEq KCl and 1 g mag sulfate IV 1 now. PROPH: -Bilateral lower extremity SCDs. Avoid chemical prophylaxis due to thrombocytopenia. Protonix GI prophylaxis LINES: -Utilize peripheral IVs, central line if needed Critical Care: The total care time was 35 minutes. Time to perform other separately billable procedures was not included in the critical care time. Patient is stable from a critical care medicine standpoint. Assign care to hospitalist in a.m. 01/20. Objective Vital Signs Date Time Temp Pulse Resp B/P Pulse Ox O2 Delivery O2 Flow Rate FiO2 01/19/17 18:00 99 01/19/17 16:00 98.4 15 118/81 94 01/18/17 20:54 21 01/16/17 20:12 Nasal Cannula Intake and Output 01/18/17 01/18/17 01/19/17 08:00 16:00 00:00 Intake Total 1340 ml 1300 ml 628 ml Output Total 1300 ml 1000 ml 801 ml Balance 40 ml 300 ml -173 ml Result Diagram: 01/19/17 0457 01/19/17 0457 Imaging Last Impressions Abdomen X-Ray 01/16/17 0000 Signed Impressions: Service Date/Time: Monday, January 16, 2017 09:28 - CONCLUSION: Unremarkable study except for stool. Anjelica Briones MD Chest X-Ray 01/15/17 0600 Signed Impressions: Service Date/Time: Sunday, January 15, 2017 03:43 - CONCLUSION: 1. Cardiomegaly. Improving pulmonary edema. Jesus Miller MD Liver Ultrasound 01/12/17 0000 Signed Impressions: Service Date/Time: Thursday, January 12, 2017 10:59 - CONCLUSION: 1. Cirrhosis and portal hypertension. 2. Hepatosplenomegaly. 3. Trace ascites. 4. Right pleural effusion. 5. Common duct mildly prominent at 9 mm. Karlos Guillermo MD Objective Remarks GENERAL: 52-year-old male, disheveled currently up in bed in chair distress SKIN: Warm and moist multiple skin lesions on hand HEAD: Normocephalic. EYES: Pupils equal and round about 3 mm bilaterally and reactive. No scleral icterus. No injection or drainage. ENT: No nasal bleeding or discharge. Mucous membranes pink and moist. On NC NECK: Supple without nuchal rigidity. No thyromegaly CARDIOVASCULAR: Tachycardic, irregularly irregular rhythm, S1, S2. No S4. No murmur appreciated. RESPIRATORY: Mild expiratory wheezing throughout both lung reid. GASTROINTESTINAL: Abdomen soft, non-tender, slightly distended. Umbilical hernia noted easily reducible. MUSCULOSKELETAL: Trace-1+ BLE edema. NEUROLOGICAL: Currently oriented person place and time. Strength equal and symmetrical bilaterally. Normal sensation A/P Assessment and Plan NEURO/PSYCH: Alcohol withdrawal syndrome Alcohol dependence Polysubstance abuse including THC/amphetamines Schizoaffective schizophrenia Continue Seroquel 200 mg by mouth daily/home medication for schizophrenia -Currently on CIID protocol for alcohol withdrawal. 3 mg Ativan today -Precedex for alcohol withdrawal has been discontinued . Scheduled Librium started 01/13 25 mg 3 times a day -Supplement thiamine, folate and multivitamin daily Acetaminophen for fever Oxycodone for pain management RESP: Acute hypoxemic respiratory failure Bibasilar pneumonia/aspiration Acute COPD exacerbation Nasal cannula to maintain saturations greater than equal to 92%. Currently on room air Incentive spirometry while awake -DuoNeb every 6 hours scheduled and when necessary -IV Solu-Medrol 40 mg daily 2 days and discontinue 01/21 CV: Atrial fibrillation with RVR Chronic atrial fibrillation Hypertension -continue PO cardizem 90 mg every 6 -Continue metoprolol cardiology switched to 50 mg 4 times a day Currently digoxin 0.125 mg by mouth daily. Last level I.4 this a.m. -Attempt to avoid amiodarone due to liver cirrhosis -2d echo 65-70%, no regional wall motion abnormality mild to mod MR, Cardiology consulted by [facility]. Dr Rich -No anticoagulation due to thrombocytopenia/poor candidate GI: Hepatitis C Liver cirrhosis Constipation -Regular diet as tolerated. Currently in Protonix 40 mg twice a day -Liver ultrasound. Revealed ascites -Lactulose 30 ml 2 times a day for elevated ammonia/constipation and added Xifaxan 550 twice a day MiraLAX/Colace and Senokot for bowel regimen Currently Lasix 80 twice a day/spironolactone 100 mg twice a day on hold : -Monitor renal function closely. Ellis catheter. ID: Severe sepsis Bibasilar pneumonia -Currently on broad-spectrum antibiotics with IV vancomycin and Zosyn. -Follow up on 01/11 blood culture, sputum culture no growth HEME: Microcytic anemia Thrombocytopenia -Thrombocytopenia most likely related to liver disease and sepsis -Monitor CBC, CMP, INR ENDO: Hypokalemia - resolved Replace electrolytes as clinically indicated. Receiving 30 mEq KCl and 1 g mag sulfate IV 1 now. PROPH: -Bilateral lower extremity SCDs. Avoid chemical prophylaxis due to thrombocytopenia. Protonix GI prophylaxis LINES: -Utilize peripheral IVs, central line if needed Critical Care: The total care time was 35 minutes. Time to perform other separately billable procedures was not included in the critical care time. Patient is stable from a critical care medicine standpoint. Assign care to hospitalist in a.m. 01/20. Quinn Frias MD Jan 19, 2017 18:36
[2017-01-20] VITALS (7 sets, daily range): BP systolic 102–134; BP diastolic 51–82; PULSE 76–122; RESP 18; TEMP 97.5–98.3; O2SAT 95–100
[2017-01-20] MEDS: RESP: ALBUTEROL 2.5 MG/IPRATROPIUM 0.5 MG NEB (SCH) NEB ×4 (03:35→21:26)
[2017-01-20] MEDS: LORazepam 2 MG/ML VIAL IV PUSH PRN (03:53)
[2017-01-20] MEDS: CHLORHEXIDINE GLUCONATE 2 % 1 PACK (2 CLOTHS) TOP SCH (04:00)
[2017-01-20] MEDS: PIPERACIL-TAZO 4.5 GM PREMIX 100 ML IV SCH ×4 (04:35→20:28)
[2017-01-20] MEDS: METOPROLOL TARTRATE 50 MG TAB PO SCH ×4 (06:43→17:45)
[2017-01-20 08:07] LABS: ALT (GPT) 111 U/L (12-78); ANION GAP 5 MEQ/L (5-15); BICARBONATE 26.9 MEQ/L (21.0-32.0); BLOOD UREA NITROGEN 22 MG/DL (7-18); CHLORIDE 107 MEQ/L (98-107); GLOMERULAR FILTRATION RATE 78 ML/MIN (>89); MAGNESIUM 1.9 MG/DL (1.5-2.5); POTASSIUM 4.3 MEQ/L (3.5-5.1); SODIUM (NA) 139 MEQ/L (136-145)
[2017-01-20 08:10] LABS: ALKALINE PHOSPHATASE 123 U/L (45-117); AST (GOT) 99 U/L (15-37); AUTOMATED NEUTROPHIL # 3.8 TH/MM3 (1.8-7.7); BASOPHIL % 0.2 % (0.0-2.0); EOSINOPHIL % 0.4 % (0.0-4.0); LYMPH % 13.6 % (9.0-44.0); LYMPHOCYTE # 0.7 TH/MM3 (1.0-4.8); MEAN CELL VOLUME 78.1 FL (80.0-100.0); MEAN CORPUSCULAR HEMOGLOBIN 24.9 PG (27.0-34.0); MEAN CORPUSCULAR HGB CONC 31.9 % (32.0-36.0); MONO % 8.2 % (0.0-8.0); NEUT % 77.6 % (16.0-70.0); PLATELET COUNT 86 TH/MM3 (150-450); RED BLOOD COUNT 3.97 MIL/MM3 (4.50-5.90); RED CELL DISTRIBUTION WIDTH 20.7 % (11.6-17.2); TOTAL BILIRUBIN ADULT 0.6 MG/DL (0.2-1.0); WHITE BLOOD COUNT 4.9 TH/MM3 (4.0-11.0)
[2017-01-20 08:12] LABS: HEMO FLAGS AUTO DIFF
--- NOTE | 2017-01-20 08:34 | HHI.PR ---
Subjective Remarks resting comfortably with no distress. has mild nausea. no fever or sob. Objective Vitals Vital Signs Date Time Temp Pulse Resp B/P Pulse Ox O2 Delivery O2 Flow Rate FiO2 01/20/17 04:00 97.8 76 18 115/59 100 01/20/17 03:40 98 21 01/20/17 00:00 97.6 82 18 116/61 100 01/19/17 23:29 100 01/19/17 22:00 103 01/19/17 20:00 97.9 87 10 103/69 98 01/19/17 20:00 87 01/19/17 18:00 99 01/19/17 16:00 98.4 123 15 118/81 94 01/19/17 16:00 123 01/19/17 14:00 105 01/19/17 12:00 98.1 103 10 95/63 97 01/19/17 12:00 103 01/19/17 10:47 96 01/19/17 10:00 117 I/O 01/19/17 01/19/17 01/19/17 01/20/17 01/20/17 01/20/17 07:00 15:00 23:00 07:00 15:00 23:00 Intake Total 354 ml 975 ml 610 ml 120 ml Output Total 700 ml 1301 ml 1300 ml 850 ml Balance -346 ml -326 ml -690 ml -730 ml Intake Oral 240 ml 700 ml 400 ml 120 ml IV Total 114 ml 275 ml 210 ml Output Urine Total 700 ml 1300 ml 1300 ml 850 ml Stool Total 0 ml 1 ml 0 ml # Bowel Movements 0 Result Diagram: 01/20/17 0710 01/20/17 0710 Imaging Last Impressions Abdomen X-Ray 01/16/17 0000 Signed Impressions: Service Date/Time: Monday, January 16, 2017 09:28 - CONCLUSION: Unremarkable study except for stool. KLuisa Briones MD Chest X-Ray 01/15/17 0600 Signed Impressions: Service Date/Time: Sunday, January 15, 2017 03:43 - CONCLUSION: 1. Cardiomegaly. Improving pulmonary edema. Jesus Miller MD Liver Ultrasound 01/12/17 0000 Signed Impressions: Service Date/Time: Thursday, January 12, 2017 10:59 - CONCLUSION: 1. Cirrhosis and portal hypertension. 2. Hepatosplenomegaly. 3. Trace ascites. 4. Right pleural effusion. 5. Common duct mildly prominent at 9 mm. Karlos Guillermo MD Objective Remarks GENERAL: This is a well-nourished, well-developed patient, in no apparent distress. CARDIOVASCULAR: Regular rate and regular rhythm without murmurs, gallops, or rubs. RESPIRATORY: Clear to auscultation. Breath sounds equal bilaterally. No wheezes , rales, or rhonchi. GASTROINTESTINAL: Abdomen soft, non-tender, nondistended. Normal, active bowel sounds MUSCULOSKELETAL: Extremities with mild bilateral pedal edema. NEURO: Alert & Oriented x4 to person, place, time, situation. Moves all ext x4 Medications and IVs Current Medications Diltiazem HCl/ Sodium Chloride (Cardizem Inj/NS Inj) 125 ml @ 0 mls/hr TITRATE IV Last administered on 01/15/17 03:51; Start 01/11/17 at 08:00; Stop at 09:01; Status DC Diltiazem HCl (Cardizem Inj) 20 mg ONCE ONCE IV Last administered on 08:03; Start 01/11/17 at 08:00; Stop 01/11/17 at 08:01; Status DC Diltiazem HCl 25 mg 25 mg ONCE ONCE IV Last administered on 01/11/17 08:38; Start 01/11/17 at 08:30; Stop 01/11/17 at 08:31; Status DC Vancomycin HCl 1000 mg/Sodium Chloride 250 ml @ 250 mls/hr ONCE STAT IV Last administered on 01/11/17 10:10; Start 01/11/17 at 08:34; Stop 01/11/17 at 09:33 ; Status DC Piperacillin Sod/ Tazobactam Sod 100 ml @ 200 mls/hr ONCE STAT IV Last administered on 01/11/17 09:16; Start 01/11/17 at 08:34; Stop 01/11/17 at 09:03 ; Status DC Sodium Chloride 1,000 ml @ 1,000 mls/hr Q1H ONCE IV Last administered on 09:15; Start 01/11/17 at 08:35; Stop 01/11/17 at 09:34; Status DC Sodium Chloride 1,000 ml @ 1,000 mls/hr Q1H ONCE IV Last administered on 09:15; Start 01/11/17 at 08:35; Stop 01/11/17 at 09:34; Status DC Sodium Chloride 700 ml @ 1,000 mls/hr Q42M ONCE IV Last administered on 09:40; Start 01/11/17 at 08:35; Stop 01/11/17 at 09:16; Status DC Magnesium Sulfate/ Dextrose (Magnesium Sulfate 1 Gm Premix) 100 ml @ 100 mls/ hr ONCE ONCE IV Last administered on 01/11/17 09:39; Start 01/11/17 at 09:15 ; Stop 01/11/17 at 10:14; Status DC Potassium Chloride (KCl) 40 meq ONCE ONCE PO Last administered on 01/11/17 09 :39; Start 01/11/17 at 09:15; Stop 01/11/17 at 09:16; Status DC Flumazenil (Romazicon Inj) 0.2 mg Q1M PRN IV PUSH SEE LABEL COMMENTS; Start 08/19 at 09:15 Lorazepam (Ativan) 1 mg Q4H PRN PO CIWA 8 - 10 Last administered on 01/16/17 01:02; Start 01/11/17 at 09:15 Lorazepam (Ativan Inj) 1 mg Q4H PRN IV PUSH CIWA 8 - 10 Last administered on 14:23; Start 01/11/17 at 09:15 Lorazepam (Ativan) 2 mg Q2H PRN PO CIWA 11-14; Start 01/11/17 at 09:15 Lorazepam (Ativan Inj) 2 mg Q2H PRN IV PUSH CIWA 11-14 Last administered on 03:53; Start 01/11/17 at 09:15 Lorazepam (Ativan Inj) 2 mg Q1H PRN IV PUSH CIWA 15-20 Last administered on 20:12; Start 01/11/17 at 09:15 Lorazepam (Ativan Inj) 2 mg Q15M PRN IV PUSH CIWA > 20 Last administered on 02:13; Start 01/11/17 at 09:15 Quetiapine Fumarate 200 mg 200 mg DAILY PO Last administered on 01/19/17 08:30 ; Start 01/12/17 at 09:00 Sodium Chloride (NS 1000 ml Inj) 1,000 ml @ 100 mls/hr Q10H IV Last administered on 01/11/17 12:14; Start 01/11/17 at 11:48; Stop 01/11/17 at 19:56 ; Status DC Sodium Chloride (NS Flush) 2 ml UNSCH PRN IV FLUSH FLUSH AFTER USING IV ACCESS Last administered on 01/15/17 08:20; Start 01/11/17 at 12:00 Sodium Chloride (NS Flush) 2 ml BID IV FLUSH Last administered on 01/19/17 20: 32; Start 01/11/17 at 21:00 Acetaminophen (Tylenol) 650 mg Q4H PRN PO TEMP > 100.4; Start 01/11/17 at 12:00 Ondansetron HCl (Zofran Inj) 4 mg Q6H PRN IVP NAUSEA OR VOMITING; Start at 12:00 Docusate Sodium (Colace) 100 mg Q12H PO Last administered on 01/19/17 23:05; Start 01/11/17 at 12:00 Sennosides (Senokot) 17.2 mg Q12H PRN PO CONSTIPATION; Start 01/11/17 at 12:00 ; Stop 01/15/17 at 15:40; Status DC Acetaminophen (Tylenol) 650 mg Q6H PRN PO PAIN SCALE 1 TO 2; Start 01/11/17 at 12:00 Oxycodone HCl (Roxicodone) 10 mg Q4H PRN PO PAIN SCALE 6 TO 10; Start 01/11/17 at 12:00 Oxycodone HCl (Roxicodone) 5 mg Q4H PRN PO PAIN SCALE 3 TO 5; Start 01/11/17 at 12:00 Naloxone HCl (Narcan Inj) 0.4 mg UNSCH PRN IV SEE LABEL COMMENTS; Start at 12:00 Diltiazem HCl 60 mg 60 mg QID PO Last administered on 01/13/17 20:22; Start at 13:00; Stop 01/14/17 at 08:21; Status DC Piperacillin Sod/ Tazobactam Sod 100 ml @ 200 mls/hr Q6H IV Last administered on 01/20/17 04:35; Start 01/11/17 at 15:00 Pharmacy Profile Note 0 ml @ 0 mls/hr UNSCH OTHER ; Start 01/11/17 at 12:30; Stop 01/14/17 at 12:56; Status DC Vancomycin HCl/ Sodium Chloride (Vancomycin Inj/ NS 250 ml Inj) 262.5 ml @ 262.5 mls/ hr Q12H IV ; Start 01/11/17 at 21:00; Status Cancel Multivitamins (Theragran) 1 tab DAILY PO Last administered on 01/19/17 08:30; Start 01/11/17 at 13:00 Thiamine HCl (Vitamin B1) 100 mg DAILY PO Last administered on 01/15/17 08:21 ; Start 01/11/17 at 13:00; Stop 01/15/17 at 15:40; Status DC Folic Acid (Folate) 1 mg DAILY PO Last administered on 01/19/17 08:30; Start 01/11/17 at 13:00 Enoxaparin Sodium 40 mg 40 mg Q24H SQ ; Start 01/11/17 at 12:45; Stop 01/11/17 at 12:46; Status DC Vancomycin HCl/ Sodium Chloride (Vancomycin Inj/ NS 500 ml Inj) 517.5 ml @ 250 mls/hr Q12H IV Last administered on 01/12/17 04:00; Start 01/11/17 at 16:00; Stop 01/12/17 at 16:23; Status DC Miscellaneous Information SPECIFIC LAB TO BE DRAWN:VANCOMYCIN TROUGH DATE TO... ONCE ONCE .XX Last administered on 01/13/17 09:45; Start 01/13/17 at 09:45; Stop 01/13/17 at 09:46; Status DC Furosemide (Lasix Inj) 40 mg ONCE ONCE IV PUSH Last administered on 01/11/17 20:57; Start 01/11/17 at 19:45; Stop 01/11/17 at 19:51; Status DC Ipratropium [place] (Atrovent Neb) 0.5 mg ONCE ONCE NEB Last administered on 20:37; Start 01/11/17 at 20:00; Stop 01/11/17 at 20:01; Status DC Diltiazem HCl (Cardizem Inj) 20 mg ONCE ONCE IV Last administered on 09:24; Start 01/12/17 at 08:15; Stop 01/12/17 at 08:16; Status DC Diltiazem HCl (Cardizem Inj) 25 mg STK-MED ONCE .ROUTE ; Start 01/12/17 at 08:02 ; Stop 01/12/17 at 08:04; Status DC Metoprolol Tartrate (Lopressor Inj) 5 mg STK-MED ONCE .ROUTE Last administered on 01/12/17 08:24; Start 01/12/17 at 08:24; Stop 01/12/17 at 08:25; Status DC Methylprednisolone Sodium Succinate (SoluMEDROL INJ) 125 mg ONCE ONCE IV PUSH Last administered on 01/12/17 09:40; Start 01/12/17 at 08:45; Stop 01/12/17 at 08:46; Status DC Metoprolol Tartrate (Lopressor Inj) 5 mg NOW ONCE IV ; Start 01/12/17 at 08:45 ; Stop 01/12/17 at 08:46; Status DC Atropine Sulfate (Atropine Inj) 1 mg STK-MED ONCE .ROUTE ; Start 01/12/17 at 08: 39; Stop 01/12/17 at 08:40; Status DC Epinephrine HCl 1 mg 1 mg STK-MED ONCE .ROUTE ; Start 01/12/17 at 08:39; Stop at 08:40; Status DC Dexmedetomidine HCl/Sodium Chloride (Precedex Inj/NS Inj) 52 ml @ 0 mls/hr TITRATE IV Last administered on 01/13/17 02:07; Start 01/12/17 at 08:45; Stop 01/13/17 at 10:55; Status DC Metoprolol Tartrate 5 mg 5 mg ONCE ONCE IV PUSH Last administered on 09:45; Start 01/12/17 at 09:45; Stop 01/12/17 at 09:47; Status DC Heparin Sodium/ Dextrose (Heparin-D5W Inj) 250 ml @ 0 mls/hr TITRATE IV ; Start 01/12/17 at 10:30; Stop 01/12/17 at 10:30; Status DC Albuterol/ Ipratropium (Duoneb Neb) 1 ampule Q6HR NEB NEB Last administered on 01/19/17 10:46; Start 01/12/17 at 10:30; Stop 01/19/17 at 13:13; Status DC Albuterol/ Ipratropium 1 ampule 1 ampule Q2HR NEB PRN NEB SHORTNESS OF BREATH; Start 01/12/17 at 10:30 Azithromycin/ Sodium Chloride (Zithromax Inj/ NS 250 ml Inj) 250 ml @ 250 mls/ hr Q24H IV Last administered on 01/19/17 11:25; Start 01/12/17 at 11:00; Stop 01/19/17 at 18:20; Status DC Metoprolol Tartrate (Lopressor Inj) 2.5 mg Q6HR IV PUSH Last administered on 04:54; Start 01/12/17 at 12:00; Stop 01/16/17 at 09:01; Status DC Methylprednisolone Sodium Succinate 60 mg 60 mg Q12HR IV PUSH Last administered on 01/16/17 07:51; Start 01/12/17 at 21:00; Stop 01/16/17 at 09:08 ; Status DC Thiamine HCl/ Sodium Chloride (Thiamine Inj/NS Inj) 101 ml @ 101 mls/hr DAILY IV Last administered on 01/19/17 08:29; Start 01/12/17 at 12:00 Pantoprazole Sodium 40 mg 40 mg Q24H IV PUSH Last administered on 01/12/17 10: 45; Start 01/12/17 at 10:45; Stop 01/12/17 at 13:57; Status DC Potassium Chloride 100 ml @ 50 mls/hr Q2H PRN IV For Potassium 2.8 - 3.2 mEq/L ; Start 01/12/17 at 14:00; Stop 01/20/17 at 07:58; Status DC Potassium Chloride (KCl 20 Meq Premix Inj) 100 ml @ 50 mls/hr Q2H PRN IV For Potassium 2.8 - 3.2 mEq/L; Start 01/12/17 at 14:00; Stop 01/20/17 at 07:58; Status DC Potassium Bicarb/ Potassium Chloride 50 meq 50 meq UNSCH PRN PO For Potassium 3.3 - 3.5 mEq/L Last administered on 01/13/17 21:41; Start 01/12/17 at 14:00; Stop 01/20/17 at 07:58; Status DC Potassium Chloride 100 ml @ 25 mls/hr UNSCH PRN IV For Potassium 3.3 - 3.5 mEq /L; Start 01/12/17 at 14:00; Stop 01/20/17 at 07:58; Status DC Potassium Chloride 100 ml @ 50 mls/hr Q2H PRN IV For Potassium 3.3 - 3.5 mEq/L ; Start 01/12/17 at 14:00; Stop 01/20/17 at 07:58; Status DC Magnesium Sulfate/ Sodium Chloride (Magnesium Sulfate Inj/NS Inj) 100 ml @ 50 mls/hr UNSCH PRN IV For Magnesium 0.9 - 1.1 mg/dL; Start 01/12/17 at 14:00; Stop 01/20/17 at 07:58; Status DC Magnesium Oxide 800 mg 800 mg UNSCH PRN PO For Magnesium 1.2 - 1.6 mg/dL; Start 01/12/17 at 14:00; Stop 01/20/17 at 07:58; Status DC Magnesium Sulfate/ Sodium Chloride (Magnesium Sulfate Inj/NS Inj) 100 ml @ 50 mls/hr UNSCH PRN IV For Magnesium 1.2 - 1.6 mg/dL; Start 01/12/17 at 14:00; Stop 01/20/17 at 07:58; Status DC Potassium Phosphate 2000 mg 2,000 mg Q4H PRN PO For Phosphorus < 2.5 mg/dL; Start 01/12/17 at 14:00; Stop 01/20/17 at 07:58; Status DC Sodium Phosphate/ Sodium Chloride (Sodium Phosphate Inj/NS 250 ml Inj) 250 ml @ 42 mls/hr UNSCH PRN IV For Phosphorus < 2.5 mg/dL; Start 01/12/17 at 14:00; Stop 01/20/17 at 07:58; Status DC Potassium Phosphate 2000 mg 2,000 mg UNSCH PRN PO/TUBE SEE LABEL COMMENTS; Start 01/12/17 at 14:00; Stop 01/20/17 at 07:58; Status DC Potassium Phosphate 30 mmol/ Sodium Chloride 260 ml @ 42 mls/hr UNSCH PRN IV SEE LABEL COMMENTS; Start 01/12/17 at 14:00; Stop 01/20/17 at 07:58; Status DC Pantoprazole Sodium 80 mg/ Sodium Chloride 100 ml @ 10 mls/hr Q10H IV Last administered on 01/13/17 01:16; Start 01/12/17 at 15:00; Stop 01/13/17 at 18:03 ; Status DC Vancomycin HCl/ Sodium Chloride (Vancomycin Inj/ NS 500 ml Inj) 517.5 ml @ 250 mls/hr Q12H IV Last administered on 01/14/17 10:11; Start 01/12/17 at 22:00; Stop 01/14/17 at 12:56; Status DC Chlordiazepoxide (Librium) 25 mg TID PO Last administered on 01/19/17 17:31; Start 01/13/17 at 13:00 Albumin Human (Albumin 25% Inj) 25 gm Q2H IV Last administered on 01/13/17 12: 54; Start 01/13/17 at 12:00; Stop 01/13/17 at 14:01; Status DC Digoxin (Lanoxin Inj) 0.25 mg NOW ONCE IV PUSH Last administered on 01/13/17 15:09; Start 01/13/17 at 15:00; Stop 01/13/17 at 15:03; Status DC Digoxin (Lanoxin Inj) 0.25 mg ONCE ONCE IV PUSH Last administered on 22:30; Start 01/13/17 at 22:15; Stop 01/13/17 at 22:18; Status DC Metoprolol Tartrate 5 mg 5 mg ONCE ONCE IV PUSH Last administered on 22:32; Start 01/13/17 at 22:15; Stop 01/13/17 at 22:18; Status DC Magnesium Sulfate/ Dextrose 100 ml @ 100 mls/hr Q1H IV Last administered on 23:27; Start 01/13/17 at 22:15; Stop 01/14/17 at 00:14; Status DC Dexmedetomidine HCl 200 mcg/ Sodium Chloride 52 ml @ 0 mls/hr TITRATE IV Last administered on 01/14/17 02:37; Start 01/14/17 at 02:30; Stop 01/14/17 at 02:40 ; Status DC Dexmedetomidine HCl/Sodium Chloride (Precedex Inj/NS 250 ml Inj) 250 ml @ 0 mls/ hr TITRATE IV Last administered on 01/16/17 05:06; Start 01/14/17 at 02:45; Stop 01/19/17 at 18:20; Status DC Diltiazem HCl (Cardizem) 90 mg QID PO Last administered on 01/19/17 20:31; Start 01/14/17 at 09:00 Digoxin (Lanoxin Inj) 0.25 mg NOW STAT IVS ; Start 01/14/17 at 08:18; Stop at 08:23; Status DC Digoxin (Lanoxin Inj) 0.25 mg Q6H IVS ; Start 01/14/17 at 15:00; Stop 01/14/17 at 15:00; Status DC Miscellaneous Information SPECIFIC LAB TO BE JEFF... ONCE ONCE .XX Last administered on 01/14/17 10:05; Start 01/14/17 at 09:45; Stop 01/14/17 at 09:46 ; Status DC Miscellaneous Information 1 [id number] XX Last administered on 01/15/17 15:45; Start 01/15/17 at 15:45 Chlorhexidine Gluconate (Chlorhexidine 2% Cloth) 3 pack Taper DAILY@04 TOP Last administered on 01/19/17 04:00; Start 01/16/17 at 04:00; Stop 01/12/18 at 03:59 Chlorhexidine Gluconate (Chlorhexidine 2% Cloth) 3 pack UNSCH PRN TOP HYGIENIC CARE; Start 01/15/17 at 15:45 Sennosides (Senokot) 17.2 mg Q12H PO Last administered on 01/19/17 23:05; Start 01/16/17 at 00:00 Polyethylene Glycol (Miralax) 17 gm ONCE ONCE PO Last administered on 19:27; Start 01/15/17 at 15:45; Stop 01/15/17 at 15:47; Status DC Polyethylene Glycol (Miralax) 17 gm DAILY PO Last administered on 01/16/17 07: 51; Start 01/16/17 at 09:00; Stop 01/16/17 at 09:00; Status DC Lactulose (Lactulose Liq) 30 ml ONCE ONCE PO Last administered on 01/15/17 19 :26; Start 01/15/17 at 15:45; Stop 01/15/17 at 15:47; Status DC Lactulose (Lactulose Liq) 30 ml DAILY PO Last administered on 01/16/17 07:50; Start 01/16/17 at 09:00; Stop 01/16/17 at 09:00; Status DC Metoprolol Tartrate (Lopressor) 50 mg Q12HR PO Last administered on 01/17/17 08:59; Start 01/16/17 at 09:00; Stop 01/17/17 at 09:22; Status DC Lactulose (Lactulose Liq) 30 ml Q6HR PO Last administered on 01/16/17 23:46; Start 01/16/17 at 12:00; Stop 01/17/17 at 09:20; Status DC Polyethylene Glycol (Miralax) 17 gm BID PO Last administered on 01/18/17 07:53 ; Start 01/16/17 at 21:00; Stop 01/19/17 at 18:20; Status DC Metoprolol Tartrate (Lopressor Inj) 5 mg Q6HR PRN IV PUSH HR > 140, SBP > 110 Last administered on 01/17/17 11:14; Start 01/16/17 at 10:00 Digoxin (Lanoxin Inj) 0.25 mg ONCE ONCE IV PUSH Last administered on 09:59; Start 01/16/17 at 09:30; Stop 01/16/17 at 09:31; Status DC Methylprednisolone Sodium Succinate (SoluMEDROL INJ) 40 mg Q12HR IV PUSH Last administered on 01/17/17 09:01; Start 01/16/17 at 21:00; Stop 01/17/17 at 09:22 ; Status DC Lactulose (Lactulose Liq) 30 ml BID PO Last administered on 01/19/17 20:31; Start 01/17/17 at 21:00 Potassium Chloride 30 meq 30 meq ONCE ONCE PO Last administered on 01/17/17 11:18; Start 01/17/17 at 10:00; Stop 01/17/17 at 10:01; Status DC Magnesium Sulfate/ Dextrose (Magnesium Sulfate 1 Gm Premix) 100 ml @ 100 mls/ hr ONCE ONCE IV Last administered on 01/17/17 11:16; Start 01/17/17 at 10:00 ; Stop 01/17/17 at 10:59; Status DC Digoxin (Lanoxin Inj) 0.25 mg ONCE ONCE IV PUSH Last administered on 11:13; Start 01/17/17 at 10:00; Stop 01/17/17 at 10:01; Status DC Rifaximin (Xifaxan) 550 mg BID PO Last administered on 01/19/17 20:31; Start 01/17/17 at 10:00 Methylprednisolone Sodium Succinate (SoluMEDROL INJ) 40 mg DAILY IV PUSH Last administered on 01/19/17 08:30; Start 01/18/17 at 09:00; Stop 01/20/17 at 08:59 Metoprolol Tartrate (Lopressor) 50 mg Q8HR PO Last administered on 01/19/17 13 :51; Start 01/17/17 at 14:00; Stop 01/19/17 at 16:53; Status DC Digoxin (Lanoxin Inj) 0.25 mg Q6H IVS Last administered on 01/18/17 05:13; Start 01/17/17 at 18:00; Stop 01/18/17 at 06:01; Status DC Digoxin (Lanoxin) 0.125 mg DAILY PO Last administered on 01/19/17 08:30; Start 01/18/17 at 10:15 Metoprolol Tartrate (Lopressor) 50 mg Q6HR PO Last administered on 01/20/17 06 :43; Start 01/19/17 at 18:00 Albuterol/ Ipratropium (Duoneb Neb) 1 ampule Q6HR NEB NEB Last administered on 01/20/17 03:35; Start 01/19/17 at 22:00 A/P Assessment and Plan A/P Alcohol withdrawal syndrome Alcohol dependence Polysubstance abuse including THC/amphetamines Schizoaffective schizophrenia Continue Seroquel 200 mg by mouth daily/home medication for schizophrenia -Currently on [facility] protocol for alcohol withdrawal. 3 mg Ativan today . Scheduled Librium started 01/13 25 mg 3 times a day -Supplement thiamine, folate and multivitamin daily Acetaminophen for fever Oxycodone for pain management Acute hypoxemic respiratory failure-resolved Bibasilar pneumonia/aspiration Acute COPD exacerbation Nasal cannula to maintain saturations greater than equal to 92%. Currently on room air Incentive spirometry while awake -DuoNeb every 6 hours scheduled and when necessary -IV Solu-Medrol 40 mg daily 2 days and discontinue 01/21 Atrial fibrillation with RVR Chronic atrial fibrillation Hypertension -continue PO cardizem 90 mg every 6 -Continue metoprolol cardiology switched to 50 mg 4 times a day Currently digoxin 0.125 mg by mouth daily. Last level I.4 this a.m. -Attempt to avoid amiodarone due to liver cirrhosis -2d echo 65-70%, no regional wall motion abnormality mild to mod MR, Cardiology consulted by [facility]. Dr Rich -No anticoagulation due to thrombocytopenia/poor candidate Hepatitis C Liver cirrhosis Constipation -Regular diet as tolerated. Currently in Protonix 40 mg twice a day -Liver ultrasound. Revealed ascites -Lactulose 30 ml 2 times a day for elevated ammonia/constipation and added Xifaxan 550 twice a day MiraLAX/Colace and Senokot for bowel regimen Currently Lasix 80 twice a day/spironolactone 100 mg twice a day on hold Severe sepsis Bibasilar pneumonia -Currently on broad-spectrum antibiotics with IV vancomycin and Zosyn. -Follow up on 01/11 blood culture, sputum culture no growth Microcytic anemia Thrombocytopenia -Thrombocytopenia most likely related to liver disease and sepsis -Monitor CBC, CMP, INR Hypokalemia - resolved DVT prophylaxis with SCD's. Discharge Planning possible discharge within the next 24-48 hrs if stable. d/w the case management. Tho Simental MD Jan 20, 2017 08:34
[2017-01-20 08:37] LABS: PLATELET ESTIMATE SMEAR LOW (NORMAL); PLATELET MORPHOLOGY NORMAL (NORMAL); SCAN/DIFF AUTO DIFF CONFIRMED
[2017-01-20] MEDS: DILTIAZEM HCL 90 MG TAB PO SCH ×4 (10:00→20:28)
[2017-01-20] MEDS: SODIUM CHLORIDE 0.9% FLUSH 10 ML FLUSH IV FLUSH SCH ×2 (10:00→20:28)
[2017-01-20] MEDS: LACTULOSE SYRUP 20 GM/30 ML CUP PO SCH ×2 (10:01→20:28)
[2017-01-20] MEDS: chlordiazePOXIDE 25 MG CAP PO SCH ×2 (10:01→13:59)
[2017-01-20] MEDS: FOLIC ACID 1 MG TAB PO SCH (10:01)
[2017-01-20] MEDS: DIGOXIN 0.125 MG TAB PO SCH (10:01)
[2017-01-20] MEDS: RIFAXIMIN 550 MG TAB PO SCH ×2 (10:02→20:28)
[2017-01-20] MEDS: QUEtiapine FUMARATE 200 MG TAB PO SCH (10:02)
[2017-01-20] MEDS: MULTIVITAMIN TAB PO SCH (10:02)
[2017-01-20] MEDS: THIAMINE INJ 100 MG in SODIUM CHLORIDE 0.9% INJ 100 ML IV SCH (13:58)
[2017-01-20] MEDS: DOCUSATE SODIUM 100 MG CAP PO SCH (13:58)
[2017-01-20] MEDS: SENNOSIDES 8.6 MG TAB PO SCH (13:59)
[2017-01-20] MEDS ORDERED: DIGO0.12 PO (15:22)
[2017-01-20] MEDS ORDERED: XIFA550T4 PO (15:22)
[2017-01-20] MEDS ORDERED: FOLI1TAB4 PO (15:22)
[2017-01-20] MEDS ORDERED: METO-309 PO (15:22)
[2017-01-20] MEDS ORDERED: THERTAB15 PO (15:22)
[2017-01-21] VITALS (9 sets, daily range): BP systolic 92–136; BP diastolic 58–66; PULSE 78–108; RESP 16–20; TEMP 97.7–99; O2SAT 96–99
[2017-01-21] MEDS: DOCUSATE SODIUM 100 MG CAP PO SCH ×3 (00:06→23:42)
[2017-01-21] MEDS: SENNOSIDES 8.6 MG TAB PO SCH ×3 (00:06→23:42)
[2017-01-21] MEDS: METOPROLOL TARTRATE 50 MG TAB PO SCH ×4 (00:06→18:00)
[2017-01-21] MEDS: RESP: ALBUTEROL 2.5 MG/IPRATROPIUM 0.5 MG NEB (SCH) NEB ×3 (03:25→20:03)
[2017-01-21] MEDS: CHLORHEXIDINE GLUCONATE 2 % 1 PACK (2 CLOTHS) TOP SCH (03:47)
[2017-01-21] MEDS: PIPERACIL-TAZO 4.5 GM PREMIX 100 ML IV SCH ×4 (03:49→20:37)
[2017-01-21] MEDS: THIAMINE INJ 100 MG in SODIUM CHLORIDE 0.9% INJ 100 ML IV SCH (09:33)
[2017-01-21] MEDS: QUEtiapine FUMARATE 200 MG TAB PO SCH (09:34)
[2017-01-21] MEDS: SODIUM CHLORIDE 0.9% FLUSH 10 ML FLUSH IV FLUSH SCH ×2 (09:34→20:36)
[2017-01-21] MEDS: RIFAXIMIN 550 MG TAB PO SCH ×2 (09:34→20:36)
[2017-01-21] MEDS: FOLIC ACID 1 MG TAB PO SCH (09:34)
[2017-01-21] MEDS: MULTIVITAMIN TAB PO SCH (09:34)
[2017-01-21] MEDS: DILTIAZEM HCL 90 MG TAB PO SCH ×4 (09:34→20:37)
[2017-01-21] MEDS: LACTULOSE SYRUP 20 GM/30 ML CUP PO SCH ×2 (09:34→20:36)
[2017-01-21] MEDS: DIGOXIN 0.125 MG TAB PO SCH (09:34)
--- NOTE | 2017-01-21 10:05 | HHI.PR ---
Subjective Remarks resting comfortably with no distress. denies pain or sob. wants to be discharged. d/w the RN. Objective Vitals Vital Signs Date Time Temp Pulse Resp B/P Pulse Ox O2 Delivery O2 Flow Rate FiO2 01/21/17 08:32 98 01/21/17 08:00 98.0 83 20 136/66 96 01/21/17 04:00 98.1 108 20 92/58 97 01/21/17 00:00 97.9 78 16 116/64 97 01/20/17 20:00 98.3 76 18 102/68 97 01/20/17 20:00 122 01/20/17 16:00 97.5 113 18 111/60 95 01/20/17 16:00 96 01/20/17 12:00 97.5 104 18 113/51 99 I/O 01/20/17 01/20/17 01/20/17 01/21/17 01/21/17 01/21/17 07:00 15:00 23:00 07:00 15:00 23:00 Intake Total 120 ml 800 ml 780 ml 240 ml Output Total 850 ml 1400 ml 200 ml Balance -730 ml -600 ml 780 ml 40 ml Intake Oral 120 ml 800 ml 480 ml 240 ml IV Total 300 ml Output Urine Total 850 ml 1400 ml 200 ml # Voids 0 3 # Bowel Movements 0 0 0 0 Result Diagram: 01/20/17 0710 01/20/17 0710 Imaging Last Impressions Abdomen X-Ray 01/16/17 0000 Signed Impressions: Service Date/Time: Monday, January 16, 2017 09:28 - CONCLUSION: Unremarkable study except for stool. K. Kamlesh Briones MD Chest X-Ray 01/15/17 0600 Signed Impressions: Service Date/Time: Sunday, January 15, 2017 03:43 - CONCLUSION: 1. Cardiomegaly. Improving pulmonary edema. Jesus Miller MD Liver Ultrasound 01/12/17 0000 Signed Impressions: Service Date/Time: Thursday, January 12, 2017 10:59 - CONCLUSION: 1. Cirrhosis and portal hypertension. 2. Hepatosplenomegaly. 3. Trace ascites. 4. Right pleural effusion. 5. Common duct mildly prominent at 9 mm. Karlos Guillermo MD Objective Remarks GENERAL: This is a well-nourished, well-developed patient, in no apparent distress. CARDIOVASCULAR: Regular rate and regular rhythm without murmurs, gallops, or rubs. RESPIRATORY: Clear to auscultation. Breath sounds equal bilaterally. No wheezes , rales, or rhonchi. GASTROINTESTINAL: Abdomen soft, non-tender, nondistended. Normal, active bowel sounds MUSCULOSKELETAL: Extremities with mild bilateral pedal edema. NEURO: Alert & Oriented x4 to person, place, time, situation. Moves all ext x4 Medications and IVs Current Medications Diltiazem HCl/ Sodium Chloride (Cardizem Inj/NS Inj) 125 ml @ 0 mls/hr TITRATE IV Last administered on 01/15/17 03:51; Start 01/11/17 at 08:00; Stop at 09:01; Status DC Diltiazem HCl (Cardizem Inj) 20 mg ONCE ONCE IV Last administered on 08:03; Start 01/11/17 at 08:00; Stop 01/11/17 at 08:01; Status DC Diltiazem HCl 25 mg 25 mg ONCE ONCE IV Last administered on 01/11/17 08:38; Start 01/11/17 at 08:30; Stop 01/11/17 at 08:31; Status DC Vancomycin HCl 1000 mg/Sodium Chloride 250 ml @ 250 mls/hr ONCE STAT IV Last administered on 01/11/17 10:10; Start 01/11/17 at 08:34; Stop 01/11/17 at 09:33 ; Status DC Piperacillin Sod/ Tazobactam Sod 100 ml @ 200 mls/hr ONCE STAT IV Last administered on 01/11/17 09:16; Start 01/11/17 at 08:34; Stop 01/11/17 at 09:03 ; Status DC Sodium Chloride 1,000 ml @ 1,000 mls/hr Q1H ONCE IV Last administered on 09:15; Start 01/11/17 at 08:35; Stop 01/11/17 at 09:34; Status DC Sodium Chloride 1,000 ml @ 1,000 mls/hr Q1H ONCE IV Last administered on 09:15; Start 01/11/17 at 08:35; Stop 01/11/17 at 09:34; Status DC Sodium Chloride 700 ml @ 1,000 mls/hr Q42M ONCE IV Last administered on 09:40; Start 01/11/17 at 08:35; Stop 01/11/17 at 09:16; Status DC Magnesium Sulfate/ Dextrose (Magnesium Sulfate 1 Gm Premix) 100 ml @ 100 mls/ hr ONCE ONCE IV Last administered on 01/11/17 09:39; Start 01/11/17 at 09:15 ; Stop 01/11/17 at 10:14; Status DC Potassium Chloride (KCl) 40 meq ONCE ONCE PO Last administered on 01/11/17 09 :39; Start 01/11/17 at 09:15; Stop 01/11/17 at 09:16; Status DC Flumazenil (Romazicon Inj) 0.2 mg Q1M PRN IV PUSH SEE LABEL COMMENTS; Start 08/19 at 09:15 Lorazepam (Ativan) 1 mg Q4H PRN PO CIWA 8 - 10 Last administered on 01/16/17 01:02; Start 01/11/17 at 09:15 Lorazepam (Ativan Inj) 1 mg Q4H PRN IV PUSH CIWA 8 - 10 Last administered on 14:23; Start 01/11/17 at 09:15 Lorazepam (Ativan) 2 mg Q2H PRN PO CIWA 11-14; Start 01/11/17 at 09:15 Lorazepam (Ativan Inj) 2 mg Q2H PRN IV PUSH CIWA 11-14 Last administered on 03:53; Start 01/11/17 at 09:15 Lorazepam (Ativan Inj) 2 mg Q1H PRN IV PUSH CIWA 15-20 Last administered on 20:12; Start 01/11/17 at 09:15 Lorazepam (Ativan Inj) 2 mg Q15M PRN IV PUSH CIWA > 20 Last administered on 02:13; Start 01/11/17 at 09:15 Quetiapine Fumarate 200 mg 200 mg DAILY PO Last administered on 01/21/17 09:34 ; Start 01/12/17 at 09:00 Sodium Chloride (NS 1000 ml Inj) 1,000 ml @ 100 mls/hr Q10H IV Last administered on 01/11/17 12:14; Start 01/11/17 at 11:48; Stop 01/11/17 at 19:56 ; Status DC Sodium Chloride (NS Flush) 2 ml UNSCH PRN IV FLUSH FLUSH AFTER USING IV ACCESS Last administered on 01/15/17 08:20; Start 01/11/17 at 12:00 Sodium Chloride (NS Flush) 2 ml BID IV FLUSH Last administered on 01/21/17 09: 34; Start 01/11/17 at 21:00 Acetaminophen (Tylenol) 650 mg Q4H PRN PO TEMP > 100.4; Start 01/11/17 at 12:00 Ondansetron HCl (Zofran Inj) 4 mg Q6H PRN IVP NAUSEA OR VOMITING; Start at 12:00 Docusate Sodium (Colace) 100 mg Q12H PO Last administered on 01/21/17 00:06; Start 01/11/17 at 12:00 Sennosides (Senokot) 17.2 mg Q12H PRN PO CONSTIPATION; Start 01/11/17 at 12:00 ; Stop 01/15/17 at 15:40; Status DC Acetaminophen (Tylenol) 650 mg Q6H PRN PO PAIN SCALE 1 TO 2; Start 01/11/17 at 12:00 Oxycodone HCl (Roxicodone) 10 mg Q4H PRN PO PAIN SCALE 6 TO 10; Start 01/11/17 at 12:00 Oxycodone HCl (Roxicodone) 5 mg Q4H PRN PO PAIN SCALE 3 TO 5; Start 01/11/17 at 12:00 Naloxone HCl (Narcan Inj) 0.4 mg UNSCH PRN IV SEE LABEL COMMENTS; Start at 12:00 Diltiazem HCl 60 mg 60 mg QID PO Last administered on 01/13/17 20:22; Start at 13:00; Stop 01/14/17 at 08:21; Status DC Piperacillin Sod/ Tazobactam Sod 100 ml @ 200 mls/hr Q6H IV Last administered on 01/21/17 09:33; Start 01/11/17 at 15:00 Pharmacy Profile Note 0 ml @ 0 mls/hr UNSCH OTHER ; Start 01/11/17 at 12:30; Stop 01/14/17 at 12:56; Status DC Vancomycin HCl/ Sodium Chloride (Vancomycin Inj/ NS 250 ml Inj) 262.5 ml @ 262.5 mls/ hr Q12H IV ; Start 01/11/17 at 21:00; Status Cancel Multivitamins (Theragran) 1 tab DAILY PO Last administered on 01/21/17 09:34; Start 01/11/17 at 13:00 Thiamine HCl (Vitamin B1) 100 mg DAILY PO Last administered on 01/15/17 08:21 ; Start 01/11/17 at 13:00; Stop 01/15/17 at 15:40; Status DC Folic Acid (Folate) 1 mg DAILY PO Last administered on 01/21/17 09:34; Start 01/11/17 at 13:00 Enoxaparin Sodium 40 mg 40 mg Q24H SQ ; Start 01/11/17 at 12:45; Stop 01/11/17 at 12:46; Status DC Vancomycin HCl/ Sodium Chloride (Vancomycin Inj/ NS 500 ml Inj) 517.5 ml @ 250 mls/hr Q12H IV Last administered on 01/12/17 04:00; Start 01/11/17 at 16:00; Stop 01/12/17 at 16:23; Status DC Miscellaneous Information SPECIFIC LAB TO BE DRAWN:VANCOMYCIN TROUGH DATE TO... ONCE ONCE .XX Last administered on 01/13/17 09:45; Start 01/13/17 at 09:45; Stop 01/13/17 at 09:46; Status DC Furosemide (Lasix Inj) 40 mg ONCE ONCE IV PUSH Last administered on 01/11/17 20:57; Start 01/11/17 at 19:45; Stop 01/11/17 at 19:51; Status DC Ipratropium [place] (Atrovent Neb) 0.5 mg ONCE ONCE NEB Last administered on 20:37; Start 01/11/17 at 20:00; Stop 01/11/17 at 20:01; Status DC Diltiazem HCl (Cardizem Inj) 20 mg ONCE ONCE IV Last administered on 09:24; Start 01/12/17 at 08:15; Stop 01/12/17 at 08:16; Status DC Diltiazem HCl (Cardizem Inj) 25 mg STK-MED ONCE .ROUTE ; Start 01/12/17 at 08:02 ; Stop 01/12/17 at 08:04; Status DC Metoprolol Tartrate (Lopressor Inj) 5 mg STK-MED ONCE .ROUTE Last administered on 01/12/17 08:24; Start 01/12/17 at 08:24; Stop 01/12/17 at 08:25; Status DC Methylprednisolone Sodium Succinate (SoluMEDROL INJ) 125 mg ONCE ONCE IV PUSH Last administered on 01/12/17 09:40; Start 01/12/17 at 08:45; Stop 01/12/17 at 08:46; Status DC Metoprolol Tartrate (Lopressor Inj) 5 mg NOW ONCE IV ; Start 01/12/17 at 08:45 ; Stop 01/12/17 at 08:46; Status DC Atropine Sulfate (Atropine Inj) 1 mg STK-MED ONCE .ROUTE ; Start 01/12/17 at 08: 39; Stop 01/12/17 at 08:40; Status DC Epinephrine HCl 1 mg 1 mg STK-MED ONCE .ROUTE ; Start 01/12/17 at 08:39; Stop at 08:40; Status DC Dexmedetomidine HCl/Sodium Chloride (Precedex Inj/NS Inj) 52 ml @ 0 mls/hr TITRATE IV Last administered on 01/13/17 02:07; Start 01/12/17 at 08:45; Stop 01/13/17 at 10:55; Status DC Metoprolol Tartrate 5 mg 5 mg ONCE ONCE IV PUSH Last administered on 09:45; Start 01/12/17 at 09:45; Stop 01/12/17 at 09:47; Status DC Heparin Sodium/ Dextrose (Heparin-D5W Inj) 250 ml @ 0 mls/hr TITRATE IV ; Start 01/12/17 at 10:30; Stop 01/12/17 at 10:30; Status DC Albuterol/ Ipratropium (Duoneb Neb) 1 ampule Q6HR NEB NEB Last administered on 01/19/17 10:46; Start 01/12/17 at 10:30; Stop 01/19/17 at 13:13; Status DC Albuterol/ Ipratropium 1 ampule 1 ampule Q2HR NEB PRN NEB SHORTNESS OF BREATH; Start 01/12/17 at 10:30 Azithromycin/ Sodium Chloride (Zithromax Inj/ NS 250 ml Inj) 250 ml @ 250 mls/ hr Q24H IV Last administered on 01/19/17 11:25; Start 01/12/17 at 11:00; Stop 01/19/17 at 18:20; Status DC Metoprolol Tartrate (Lopressor Inj) 2.5 mg Q6HR IV PUSH Last administered on 04:54; Start 01/12/17 at 12:00; Stop 01/16/17 at 09:01; Status DC Methylprednisolone Sodium Succinate 60 mg 60 mg Q12HR IV PUSH Last administered on 01/16/17 07:51; Start 01/12/17 at 21:00; Stop 01/16/17 at 09:08 ; Status DC Thiamine HCl/ Sodium Chloride (Thiamine Inj/NS Inj) 101 ml @ 101 mls/hr DAILY IV Last administered on 01/21/17 09:33; Start 01/12/17 at 12:00 Pantoprazole Sodium 40 mg 40 mg Q24H IV PUSH Last administered on 01/12/17 10: 45; Start 01/12/17 at 10:45; Stop 01/12/17 at 13:57; Status DC Potassium Chloride 100 ml @ 50 mls/hr Q2H PRN IV For Potassium 2.8 - 3.2 mEq/L ; Start 01/12/17 at 14:00; Stop 01/20/17 at 07:58; Status DC Potassium Chloride (KCl 20 Meq Premix Inj) 100 ml @ 50 mls/hr Q2H PRN IV For Potassium 2.8 - 3.2 mEq/L; Start 01/12/17 at 14:00; Stop 01/20/17 at 07:58; Status DC Potassium Bicarb/ Potassium Chloride 50 meq 50 meq UNSCH PRN PO For Potassium 3.3 - 3.5 mEq/L Last administered on 01/13/17 21:41; Start 01/12/17 at 14:00; Stop 01/20/17 at 07:58; Status DC Potassium Chloride 100 ml @ 25 mls/hr UNSCH PRN IV For Potassium 3.3 - 3.5 mEq /L; Start 01/12/17 at 14:00; Stop 01/20/17 at 07:58; Status DC Potassium Chloride 100 ml @ 50 mls/hr Q2H PRN IV For Potassium 3.3 - 3.5 mEq/L ; Start 01/12/17 at 14:00; Stop 01/20/17 at 07:58; Status DC Magnesium Sulfate/ Sodium Chloride (Magnesium Sulfate Inj/NS Inj) 100 ml @ 50 mls/hr UNSCH PRN IV For Magnesium 0.9 - 1.1 mg/dL; Start 01/12/17 at 14:00; Stop 01/20/17 at 07:58; Status DC Magnesium Oxide 800 mg 800 mg UNSCH PRN PO For Magnesium 1.2 - 1.6 mg/dL; Start 01/12/17 at 14:00; Stop 01/20/17 at 07:58; Status DC Magnesium Sulfate/ Sodium Chloride (Magnesium Sulfate Inj/NS Inj) 100 ml @ 50 mls/hr UNSCH PRN IV For Magnesium 1.2 - 1.6 mg/dL; Start 01/12/17 at 14:00; Stop 01/20/17 at 07:58; Status DC Potassium Phosphate 2000 mg 2,000 mg Q4H PRN PO For Phosphorus < 2.5 mg/dL; Start 01/12/17 at 14:00; Stop 01/20/17 at 07:58; Status DC Sodium Phosphate/ Sodium Chloride (Sodium Phosphate Inj/NS 250 ml Inj) 250 ml @ 42 mls/hr UNSCH PRN IV For Phosphorus < 2.5 mg/dL; Start 01/12/17 at 14:00; Stop 01/20/17 at 07:58; Status DC Potassium Phosphate 2000 mg 2,000 mg UNSCH PRN PO/TUBE SEE LABEL COMMENTS; Start 01/12/17 at 14:00; Stop 01/20/17 at 07:58; Status DC Potassium Phosphate 30 mmol/ Sodium Chloride 260 ml @ 42 mls/hr UNSCH PRN IV SEE LABEL COMMENTS; Start 01/12/17 at 14:00; Stop 01/20/17 at 07:58; Status DC Pantoprazole Sodium 80 mg/ Sodium Chloride 100 ml @ 10 mls/hr Q10H IV Last administered on 01/13/17t 01:16; Start 01/12/17 at 15:00; Stop 01/13/17 at 18:03 ; Status DC Vancomycin HCl/ Sodium Chloride (Vancomycin Inj/ NS 500 ml Inj) 517.5 ml @ 250 mls/hr Q12H IV Last administered on 01/14/17 10:11; Start 01/12/17 at 22:00; Stop 01/14/17 at 12:56; Status DC Chlordiazepoxide (Librium) 25 mg TID PO Last administered on 01/20/17 13:59; Start 01/13/17 at 13:00; Stop 01/20/17 at 15:23; Status DC Albumin Human (Albumin 25% Inj) 25 gm Q2H IV Last administered on 01/13/17 12: 54; Start 01/13/17 at 12:00; Stop 01/13/17 at 14:01; Status DC Digoxin (Lanoxin Inj) 0.25 mg NOW ONCE IV PUSH Last administered on 01/13/17 15:09; Start 01/13/17 at 15:00; Stop 01/13/17 at 15:03; Status DC Digoxin (Lanoxin Inj) 0.25 mg ONCE ONCE IV PUSH Last administered on 22:30; Start 01/13/17 at 22:15; Stop 01/13/17 at 22:18; Status DC Metoprolol Tartrate 5 mg 5 mg ONCE ONCE IV PUSH Last administered on 22:32; Start 01/13/17 at 22:15; Stop 01/13/17 at 22:18; Status DC Magnesium Sulfate/ Dextrose 100 ml @ 100 mls/hr Q1H IV Last administered on 23:27; Start 01/13/17 at 22:15; Stop 01/14/17 at 00:14; Status DC Dexmedetomidine HCl 200 mcg/ Sodium Chloride 52 ml @ 0 mls/hr TITRATE IV Last administered on 01/14/17 02:37; Start 01/14/17 at 02:30; Stop 01/14/17 at 02:40 ; Status DC Dexmedetomidine HCl/Sodium Chloride (Precedex Inj/NS 250 ml Inj) 250 ml @ 0 mls/ hr TITRATE IV Last administered on 01/16/17 05:06; Start 01/14/17 at 02:45; Stop 01/19/17 at 18:20; Status DC Diltiazem HCl (Cardizem) 90 mg QID PO Last administered on 01/21/17 09:34; Start 01/14/17 at 09:00 Digoxin (Lanoxin Inj) 0.25 mg NOW STAT IVS ; Start 01/14/17 at 08:18; Stop at 08:23; Status DC Digoxin (Lanoxin Inj) 0.25 mg Q6H IVS ; Start 01/14/17 at 15:00; Stop 01/14/17 at 15:00; Status DC Miscellaneous Information SPECIFIC LAB TO BE JEFF... ONCE ONCE .XX Last administered on 01/14/17 10:05; Start 01/14/17 at 09:45; Stop 01/14/17 at 09:46 ; Status DC Miscellaneous Information 1 [id number] XX Last administered on 01/15/17 15:45; Start 01/15/17 at 15:45 Chlorhexidine Gluconate (Chlorhexidine 2% Cloth) Taper DAILY@04 TOP Last administered on 01/19/17 04:00; Start 01/16/17 at 04:00; Stop 01/12/18 at 03:59 Chlorhexidine Gluconate (Chlorhexidine 2% Cloth) 3 pack UNSCH PRN TOP HYGIENIC CARE; Start 01/15/17 at 15:45 Sennosides (Senokot) 17.2 mg Q12H PO Last administered on 01/21/17 00:06; Start 01/16/17 at 00:00 Polyethylene Glycol (Miralax) 17 gm ONCE ONCE PO Last administered on 19:27; Start 01/15/17 at 15:45; Stop 01/15/17 at 15:47; Status DC Polyethylene Glycol (Miralax) 17 gm DAILY PO Last administered on 01/16/17 07: 51; Start 01/16/17 at 09:00; Stop 01/16/17 at 09:00; Status DC Lactulose (Lactulose Liq) 30 ml ONCE ONCE PO Last administered on 01/15/17 19 :26; Start 01/15/17 at 15:45; Stop 01/15/17 at 15:47; Status DC Lactulose (Lactulose Liq) 30 ml DAILY PO Last administered on 01/16/17 07:50; Start 01/16/17 at 09:00; Stop 01/16/17 at 09:00; Status DC Metoprolol Tartrate (Lopressor) 50 mg Q12HR PO Last administered on 01/17/17 08:59; Start 01/16/17 at 09:00; Stop 01/17/17 at 09:22; Status DC Lactulose (Lactulose Liq) 30 ml Q6HR PO Last administered on 01/16/17 23:46; Start 01/16/17 at 12:00; Stop 01/17/17 at 09:20; Status DC Polyethylene Glycol (Miralax) 17 gm BID PO Last administered on 01/18/17 07:53 ; Start 01/16/17 at 21:00; Stop 01/19/17 at 18:20; Status DC Metoprolol Tartrate (Lopressor Inj) 5 mg Q6HR PRN IV PUSH HR > 140, SBP > 110 Last administered on 01/17/17 11:14; Start 01/16/17 at 10:00 Digoxin (Lanoxin Inj) 0.25 mg ONCE ONCE IV PUSH Last administered on 09:59; Start 01/16/17 at 09:30; Stop 01/16/17 at 09:31; Status DC Methylprednisolone Sodium Succinate (SoluMEDROL INJ) 40 mg Q12HR IV PUSH Last administered on 01/17/17 09:01; Start 01/16/17 at 21:00; Stop 01/17/17 at 09:22 ; Status DC Lactulose (Lactulose Liq) 30 ml BID PO Last administered on 01/21/17 09:34; Start 01/17/17 at 21:00 Potassium Chloride 30 meq 30 meq ONCE ONCE PO Last administered on 01/17/17 11:18; Start 01/17/17 at 10:00; Stop 01/17/17 at 10:01; Status DC Magnesium Sulfate/ Dextrose (Magnesium Sulfate 1 Gm Premix) 100 ml @ 100 mls/ hr ONCE ONCE IV Last administered on 01/17/17 11:16; Start 01/17/17 at 10:00 ; Stop 01/17/17 at 10:59; Status DC Digoxin (Lanoxin Inj) 0.25 mg ONCE ONCE IV PUSH Last administered on 11:13; Start 01/17/17 at 10:00; Stop 01/17/17 at 10:01; Status DC Rifaximin (Xifaxan) 550 mg BID PO Last administered on 01/21/17 09:34; Start 01/17/17 at 10:00 Methylprednisolone Sodium Succinate (SoluMEDROL INJ) 40 mg DAILY IV PUSH Last administered on 01/19/17 08:30; Start 01/18/17 at 09:00; Stop 01/20/17 at 08:59 ; Status DC Metoprolol Tartrate (Lopressor) 50 mg Q8HR PO Last administered on 01/19/17 13 :51; Start 01/17/17 at 14:00; Stop 01/19/17 at 16:53; Status DC Digoxin (Lanoxin Inj) 0.25 mg Q6H IVS Last administered on 01/18/17 05:13; Start 01/17/17 at 18:00; Stop 01/18/17 at 06:01; Status DC Digoxin (Lanoxin) 0.125 mg DAILY PO Last administered on 01/21/17 09:34; Start 01/18/17 at 10:15 Metoprolol Tartrate (Lopressor) 50 mg Q6HR PO Last administered on 01/21/17 00 :06; Start 01/19/17 at 18:00 Albuterol/ Ipratropium (Duoneb Neb) 1 ampule Q6HR NEB NEB Last administered on 01/21/17 08:31; Start 01/19/17 at 22:00 Chlordiazepoxide (Librium) 10 mg TID PO Last administered on 01/21/17 09:34; Start 01/20/17 at 18:00 Chlordiazepoxide (Librium) 5 mg TID PO Last administered on 01/21/17 09:34; Start 01/20/17 at 18:00 A/P Assessment and Plan A/P Alcohol withdrawal syndrome Alcohol dependence Polysubstance abuse including THC/amphetamines Schizoaffective schizophrenia Continue Seroquel 200 mg by mouth daily/home medication for schizophrenia .tapered down the librium -Supplement thiamine, folate and multivitamin daily Acetaminophen for fever Oxycodone for pain management Acute hypoxemic respiratory failure-resolved Bibasilar pneumonia/aspiration Acute COPD exacerbation Nasal cannula to maintain saturations greater than equal to 92%. Currently on room air Incentive spirometry while awake -DuoNeb every 6 hours scheduled and when necessary -IV Solu-Medrol will be discontinued today. Atrial fibrillation with RVR Chronic atrial fibrillation Hypertension -continue PO cardizem . -Continue metoprolol cardiology switched to 50 mg 4 times a day Currently digoxin 0.125 mg by mouth daily. -Attempt to avoid amiodarone due to liver cirrhosis -2d echo 65-70%, no regional wall motion abnormality mild to mod MR, Cardiology consulted by [facility] Dr Rich -No anticoagulation due to thrombocytopenia/poor candidate Hepatitis C Liver cirrhosis Constipation -Regular diet as tolerated. Currently on Protonix . -Liver ultrasound. Revealed trace ascites -Lactulose 30 ml 2 times a day for elevated ammonia/constipation and added Xifaxan 550 twice a day MiraLAX/Colace and Senokot for bowel regimen will resume lasix and aldactone upon discharge. Severe sepsis Bibasilar pneumonia -treated with Abx. Microcytic anemia Thrombocytopenia -Thrombocytopenia most likely related to liver disease and sepsis -Monitor CBC, CMP, INR Hypokalemia - resolved DVT prophylaxis with SCD's. Discharge Planning Tho Simental MD Jan 21, 2017 10:05 d/w . time spent 32 min. Tho Simental MD Jan 21, 2017 10:05
--- NOTE | 2017-01-21 10:07 | HHI.DCPOC ---
Discharge Care Plan Diagnosis: (1) Alcohol withdrawal Additional Problems agitation. Goals to Promote Your Health * To prevent worsening of your condition and complications * To maintain your health at the optimal level Directions to Meet Your Goals Take your medications as prescribed Follow your dietary instruction Follow activity as directed Keep your appointments as scheduled Take your immunizations and boosters as scheduled If your symptoms worsen call your PCP, if no PCP go to Urgent Care Center or Emergency Room Smoking is Dangerous to Your Health. Avoid second hand smoke Call the 24-hour hour crisis hotline for domestic abuse at Tho Simental MD Jan 21, 2017 10:07
[2017-01-21] MEDS ORDERED: CHLO5CAP3 PO (10:09)
[2017-01-21] MEDS ORDERED: FURO1TAB60 PO (10:10)
[2017-01-21] MEDS ORDERED: ALDA50TA2 PO (10:12)
[2017-01-21] MEDS ORDERED: CARD360C PO (10:12)
--- NOTE | 2017-01-21 10:13 | HHI.DS ---
Discharge Summary Admission Date Jan 11, 2017 at 09:20 Discharge Date: Jan 21, 2017 Admitting Diagnosis sepsis, rule out endocarditis, A. fib with RVR (1) Alcohol-induced mood disorder ICD Code: F10.94 Diagnosis: Principal (2) Encephalopathy acute ICD Code: G93.40 Diagnosis: Principal (3) Hypertensive urgency ICD Code: I10 Diagnosis: Principal (4) bipolar affective disorder Diagnosis: Principal (5) Alcohol dependence ICD Code: F10.20 Diagnosis: Principal Procedures none Brief History - From Admission The patient is a 52-year-old male with past medical history of cirrhosis secondary to alcohol abuse who is presenting to the hospital feeling unwell and with skin changes. The patient said that he was abstinent from alcohol for the past 3-1/2 months and started drinking on January 01 as his birthday was on [birth year]. The patient said that he went on a bad binge. He says he has been drinking up to 2 L of bourbon daily. He says he stopped drinking yesterday. He says he has had seizures from stopping alcohol in the past. The patient said that he has developed an infection on his hands. He said one of his nails was torn off and there is an infection there and he also noticed other areas of infection on his upper extremities. She also notes that his vision in his left eye has changed over the past week. He says he notes a black paint splatter in his field of vision on the left eye. He says it does not go away and he has never had that before in the past. He denies a headache. He says he has chronic neck pain. He feels like he has an infection in the right side of his nose. He has been noticing hard snot and nosebleeds. He also has been coughing and endorses yellow mucus. He states he took either half a strep or a full strip of Suboxone yesterday or the day before yesterday. The patient also endorses atypical chest pain which recently started in the emergency department. He was unable to elaborate. He denies any shortness of breath. CBC/BMP: 01/20/17 0710 01/20/17 0710 Significant Findings Laboratory Tests Test 01/19/17 01/20/17 04:57 07:10 Red Blood Count 3.91 MIL/MM3 3.97 MIL/MM3 (4.50-5.90) (4.50-5.90) Hemoglobin 9.8 GM/DL 9.9 GM/DL (13.0-17.0) (13.0-17.0) Hematocrit 29.8 % 31.0 % (39.0-51.0) (39.0-51.0) Mean Corpuscular Volume 76.2 FL 78.1 FL (80.0-100.0) (80.0-100.0) Mean Corpuscular Hemoglobin 25.0 PG 24.9 PG (27.0-34.0) (27.0-34.0) Red Cell Distribution Width 21.0 % 20.7 % (11.6-17.2) (11.6-17.2) Platelet Count 93 TH/MM3 86 TH/MM3 (150-450) (150-450) Blood Urea Nitrogen 25 MG/DL (7-18) 22 MG/DL (7-18) Estimat Glomerular Filtration 70 ML/MIN (>89) 78 ML/MIN (>89) Rate Random Glucose 160 MG/DL (74-106) Mean Corpuscular Hemoglobin 31.9 % Concent (32.0-36.0) Neutrophils (%) (Auto) 77.6 % (16.0-70.0) Monocytes (%) (Auto) 8.2 % (0.0-8.0) Lymphocytes # (Auto) 0.7 TH/MM3 (1.0-4.8) Platelet Estimate LOW (NORMAL) Aspartate Amino Transf 99 U/L (15-37) (AST/SGOT) Alanine Aminotransferase 111 U/L (12-78) (ALT/SGPT) Alkaline Phosphatase 123 U/L (45-117) Albumin 2.4 GM/DL (3.4-5.0) Imaging Last Impressions Abdomen X-Ray 01/16/17 0000 Signed Impressions: Service Date/Time: Monday, January 16, 2017 09:28 - CONCLUSION: Unremarkable study except for stool. K. Kamlesh Briones MD Chest X-Ray 01/15/17 0600 Signed Impressions: Service Date/Time: Sunday, January 15, 2017 03:43 - CONCLUSION: 1. Cardiomegaly. Improving pulmonary edema. Jesus Miller MD Liver Ultrasound 01/12/17 0000 Signed Impressions: Service Date/Time: Thursday, January 12, 2017 10:59 - CONCLUSION: 1. Cirrhosis and portal hypertension. 2. Hepatosplenomegaly. 3. Trace ascites. 4. Right pleural effusion. 5. Common duct mildly prominent at 9 mm. Karlos Guillermo MD PE at Discharge GENERAL: This is a well-nourished, well-developed patient, in no apparent distress. CARDIOVASCULAR: Regular rate and regular rhythm without murmurs, gallops, or rubs. RESPIRATORY: Clear to auscultation. Breath sounds equal bilaterally. No wheezes , rales, or rhonchi. GASTROINTESTINAL: Abdomen soft, non-tender, nondistended. Normal, active bowel sounds MUSCULOSKELETAL: Extremities with mild bilateral pedal edema. NEURO: Alert & Oriented x4 to person, place, time, situation. Moves all ext x4 Transfer Summary NEURO/PSYCH: Alcohol withdrawal syndrome Alcohol dependence Polysubstance abuse including THC/amphetamines Schizoaffective schizophrenia Continue Seroquel 200 mg by mouth daily/home medication for schizophrenia -Currently on [facility] protocol for alcohol withdrawal. 3 mg Ativan today -Precedex for alcohol withdrawal has been discontinued . Scheduled Librium started 01/13 25 mg 3 times a day -Supplement thiamine, folate and multivitamin daily Acetaminophen for fever Oxycodone for pain management RESP: Acute hypoxemic respiratory failure Bibasilar pneumonia/aspiration Acute COPD exacerbation Nasal cannula to maintain saturations greater than equal to 92%. Currently on room air Incentive spirometry while awake -DuoNeb every 6 hours scheduled and when necessary -IV Solu-Medrol 40 mg daily 2 days and discontinue 01/21 CV: Atrial fibrillation with RVR Chronic atrial fibrillation Hypertension -continue PO cardizem 90 mg every 6 -Continue metoprolol cardiology switched to 50 mg 4 times a day Currently digoxin 0.125 mg by mouth daily. Last level I.4 this a.m. -Attempt to avoid amiodarone due to liver cirrhosis -2d echo 65-70%, no regional wall motion abnormality mild to mod MR, Cardiology consulted by [facility]. Dr Rich -No anticoagulation due to thrombocytopenia/poor candidate GI: Hepatitis C Liver cirrhosis Constipation -Regular diet as tolerated. Currently in Protonix 40 mg twice a day -Liver ultrasound. Revealed ascites -Lactulose 30 ml 2 times a day for elevated ammonia/constipation and added Xifaxan 550 twice a day MiraLAX/Colace and Senokot for bowel regimen Currently Lasix 80 twice a day/spironolactone 100 mg twice a day on hold : -Monitor renal function closely. Ellis catheter. ID: Severe sepsis Bibasilar pneumonia -Currently on broad-spectrum antibiotics with IV vancomycin and Zosyn. -Follow up on 01/11 blood culture, sputum culture no growth HEME: Microcytic anemia Thrombocytopenia -Thrombocytopenia most likely related to liver disease and sepsis -Monitor CBC, CMP, INR ENDO: Hypokalemia - resolved Replace electrolytes as clinically indicated. Receiving 30 mEq KCl and 1 g mag sulfate IV 1 now. PROPH: -Bilateral lower extremity SCDs. Avoid chemical prophylaxis due to thrombocytopenia. Protonix GI prophylaxis LINES: -Utilize peripheral IVs, central line if needed Critical Care: The total care time was 35 minutes. Time to perform other separately billable procedures was not included in the critical care time. Patient is stable from a critical care medicine standpoint. Assign care to hospitalist in a.m. 01/20. Hospital Course Alcohol withdrawal syndrome Alcohol dependence Polysubstance abuse including THC/amphetamines Schizoaffective schizophrenia Continue Seroquel 200 mg by mouth daily/home medication for schizophrenia .tapered down the librium -Supplement thiamine, folate and multivitamin daily Acetaminophen for fever Oxycodone for pain management Acute hypoxemic respiratory failure-resolved Bibasilar pneumonia/aspiration Acute COPD exacerbation Nasal cannula to maintain saturations greater than equal to 92%. Currently on room air Incentive spirometry while awake -DuoNeb every 6 hours scheduled and when necessary -IV Solu-Medrol will be discontinued today. Atrial fibrillation with RVR Chronic atrial fibrillation Hypertension -continue PO cardizem . -Continue metoprolol cardiology switched to 50 mg 4 times a day Currently digoxin 0.125 mg by mouth daily. -Attempt to avoid amiodarone due to liver cirrhosis -2d echo 65-70%, no regional wall motion abnormality mild to mod MR, Cardiology consulted by [facility]. Dr Rich -No anticoagulation due to thrombocytopenia/poor candidate Hepatitis C Liver cirrhosis Constipation -Regular diet as tolerated. Currently on Protonix . -Liver ultrasound. Revealed trace ascites -Lactulose 30 ml 2 times a day for elevated ammonia/constipation and added Xifaxan 550 twice a day MiraLAX/Colace and Senokot for bowel regimen will resume lasix and aldactone upon discharge. Severe sepsis Bibasilar pneumonia -treated with Abx. Microcytic anemia Thrombocytopenia -Thrombocytopenia most likely related to liver disease and sepsis -Monitor CBC, CMP, INR Hypokalemia - resolved DVT prophylaxis with SCD's. Pt Condition on Discharge: Fair Discharge Disposition: Discharge Home Discharge Time: > 30 minutes Discharge Instructions DIET: Follow Instructions for: Heart Healthy Diet Activities you can perform: Regular-No Restrictions Follow up Referrals: PCP Follow-up New Medications: Chlordiazepoxide (Chlordiazepoxide) 5 Mg Cap 5 MG PO DIRECTED 10 mg po twice daily on 01/22/17, then 10 mg po daily on 01/23, then 5 mg po once daily on 01/24/17- then stop. PRN Anxiety #3 Ref 0 CAP Diltiazem CD 24 HR (Cardizem CD 24 HR) 360 Mg Caper 360 MG PO DAILY a-fib #30 Ref 0 CAP Furosemide (Lasix) 40 Mg Tab 40 MG PO BID diuretic #60 Ref 0 TAB Spironolactone (Aldactone) 50 Mg Tab 50 MG PO DAILY diuretic #30 Ref 0 TAB Thiamine (Thiamine) 100 Mg Tab 100 MG PO DAILY Nutritional Supplement Days 30 Ref 0 TAB Digoxin (Digoxin) 0.125 Mg Tab 0.125 MG PO DAILY a-fib Days 30 Ref 0 TAB Folic Acid (Folate) 1 Mg Tab 1 MG PO DAILY vitamin Days 30 Ref 0 TAB Metoprolol Tartrate (Lopressor) 50 Mg Tab 50 MG PO Q6HR a-fib Days 30 Ref 0 TAB Multiple Vitamin (Thera/Beta-Carotene) 1 Tab Tab 1 TAB PO DAILY vitamin Days 30 Ref 0 TAB Rifaximin (Xifaxan) 550 Mg Tab 550 MG PO BID cirrhosis Days 30 Ref 0 TAB Continued Medications: Albuterol 8.5 GM Inh (Proair Hfa 8.5 GM Inh) 90 Mcg/Act Aer 1 PUFF INH Q4H 108 mcg/actuation PRN SHORTNESS OF BREATH #1 Ref 0 INHALER Quetiapine (Quetiapine) 200 Mg Tab 200 MG PO DAILY #30 Ref 0 TAB Discontinued Medications: Diclofenac Sodium DR (Diclofenac Sodium DR) 75 Mg Tabdr 75 MG PO BID #60 Ref 0 TAB Furosemide (Lasix) 80 Mg Tab 80 MG PO BID #60 Ref 0 TAB Spironolactone (Spironolactone) 100 Mg Tab 100 MG PO BIDPC #60 Ref 0 TAB Tho Simental MD Jan 21, 2017 10:13
[2017-01-21] MEDS ORDERED: THIA100T PO (10:23)
--- NOTE | 2017-01-21 12:04 | PD.CARD.PN ---
Subjective Subjective Remarks No chest pain, no shortness of breath Heart rates mostly controlled, but has been non-compliant with telemetry, ripping it off Objective Medications Current Medications Medications (Trade) Dose Ordered Sig/Yi Route Start Time Stop Time Status Last Admin (Romazicon Inj) 0.2 mg Q1M PRN IV PUSH 01/11/17 09:15 (Ativan) 1 mg Q4H PRN PO 01/11/17 09:15 01/16/17 01:02 (Ativan Inj) 1 mg Q4H PRN IV PUSH 01/11/17 09:15 01/19/17 14:23 (Ativan) 2 mg Q2H PRN PO 01/11/17 09:15 (Ativan Inj) 2 mg Q2H PRN IV PUSH 01/11/17 09:15 01/20/17 03:53 (Ativan Inj) 2 mg Q1H PRN IV PUSH 01/11/17 09:15 01/17/17 20:12 (Ativan Inj) 2 mg Q15M PRN IV PUSH 01/11/17 09:15 01/14/17 02:13 (SEROquel) 200 mg DAILY PO 01/12/17 09:00 01/21/17 09:34 (NS Flush) 2 ml UNSCH PRN IV FLUSH 01/11/17 12:00 01/15/17 08:20 (NS Flush) 2 ml BID IV FLUSH 01/11/17 21:00 01/21/17 09:34 (Tylenol) 650 mg Q4H PRN PO 01/11/17 12:00 (Zofran Inj) 4 mg Q6H PRN IVP 01/11/17 12:00 (Colace) 100 mg Q12H PO 01/11/17 12:00 01/21/17 00:06 (Tylenol) 650 mg Q6H PRN PO 01/11/17 12:00 (Roxicodone) 10 mg Q4H PRN PO 01/11/17 12:00 (Roxicodone) 5 mg Q4H PRN PO 01/11/17 12:00 Naloxone HCl 0.4 mg 0.4 mg UNSCH PRN IV 01/11/17 12:00 (Zosyn 4.5 Gm Premix) 100 ml @ 200 mls/hr Q6H IV 01/11/17:00 01/21/17 09:33 (Theragran) 1 tab DAILY PO 01/11/17 13:00 01/21/17 09:34 Folic Acid 1 mg 1 mg DAILY PO 01/11/17 13:00 01/21/17 09:34 (Thiamine Inj/NS Inj) 101 ml @ 101 mls/hr DAILY IV 01/12/17 12:00 01/21/17 09:33 (Cardizem) 90 mg QID PO 01/14/17 09:00 01/21/17 09:34 Miscellaneous Information 1 Q361D XX 01/15/17 15:45 01/15/17 15:45 (Chlorhexidine 2% Cloth) Taper DAILY@04 TOP 01/16/17 04:00 01/12/18 03:59 01/19/17 04:00 (Chlorhexidine 2% Cloth) 3 pack UNSCH PRN TOP 01/15/17 15:45 (Senokot) 17.2 mg Q12H PO 01/16/17 00:00 01/21/17 00:06 (Lopressor Inj) 5 mg Q6HR PRN IV PUSH 01/16/17 10:00 01/17/17 11:14 (Lactulose Liq) 30 ml BID PO 01/17/17 21:00 01/21/17 09:34 (Xifaxan) 550 mg BID PO 01/17/17 10:00 01/21/17 09:34 (Lanoxin) 0.125 mg DAILY PO 01/18/17 10:15 01/21/17 09:34 (Lopressor) 50 mg Q6HR PO 01/19/17 18:00 01/21/17 00:06 (Librium) 10 mg TID PO 01/20/17 18:00 01/21/17 09:34 (Librium) 5 mg TID PO 01/20/17 18:00 01/21/17 09:34 Vital Signs / I&O Vital Signs Date Time Temp Pulse Resp B/P Pulse Ox O2 Delivery O2 Flow Rate FiO2 01/21/17 08:32 98 01/21/17 08:00 98.0 83 20 136/66 96 01/21/17 04:00 98.1 108 20 92/58 97 01/21/17 00:00 97.9 78 16 116/64 97 01/20/17 20:00 98.3 76 18 102/68 97 01/20/17 20:00 122 01/20/17 16:00 97.5 113 18 111/60 95 01/20/17 16:00 96 I/O 01/20/17 01/20/17 01/20/17 01/21/17 01/21/17 01/21/17 07:00 15:00 23:00 07:00 15:00 23:00 Intake Total 120 ml 800 ml 780 ml 240 ml Output Total 850 ml 1400 ml 200 ml Balance -730 ml -600 ml 780 ml 40 ml Intake Oral 120 ml 800 ml 480 ml 240 ml IV Total 300 ml Output Urine Total 850 ml 1400 ml 200 ml # Voids 0 3 # Bowel Movements 0 0 0 0 Physical Exam GENERAL: NAD, AAOx3 SKIN: Warm and dry. HEAD: Atraumatic. Normocephalic. EYES: Pupils equal and round. No scleral icterus. No injection or drainage. ENT: No nasal bleeding or discharge. Mucous membranes pink and moist. NECK: Trachea midline. No JVD. CARDIOVASCULAR: Irregularly irregular, controlled rate RESPIRATORY: No accessory muscle use. Decreased breath sounds bilaterally GASTROINTESTINAL: Abdomen soft, non-tender, nondistended. Hepatic and splenic margins not palpable. MUSCULOSKELETAL: Extremities without clubbing, cyanosis, or edema. No obvious deformities. NEUROLOGICAL: Awake and alert. No obvious cranial nerve deficits. Motor grossly within normal limits. Five out of 5 muscle strength in the arms and legs. Normal speech. PSYCHIATRIC: Appropriate mood and affect; insight and judgment normal. Assessment and Plan Problem List: (1) Atrial fibrillation with RVR (2) Thrombocytopenia (3) Sepsis (4) Anemia (5) Alcoholism (6) Cirrhosis of liver (7) Shortness of breath (8) Alcohol abuse (9) Cellulitis of right hand Assessment and Plan 1) Afib controlled, con't Cardizem/Lopressor, loaded with Digoxin, Digoxin small dose daily and check a level in 1-2 weeks 2) Will avoid Amiodarone with cirrhosis/ETOH history 3) Not an anticoagulation candidate due to thrombocytopenia 4) May be going through ETOH withdrawal leading to Afib with RVR 5) Non-compliant with telemetry 6) Cardiovascularly stable for discharge, needs Digoxin level in 1 week to be sent to his PCP Problem Qualifiers (1) Sepsis: Qualified Code: A41.9 - Sepsis, due to unspecified organism Xavi Rich DO Jan 21, 2017 12:04
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
[2017-01-22] VITALS (10 sets, daily range): BP systolic 110–181; BP diastolic 52–88; PULSE 56–83; RESP 16–19; TEMP 97.4–99.9; O2SAT 96–100
[2017-01-22] MEDS: METOPROLOL TARTRATE 50 MG TAB PO SCH ×4 (00:22→17:39)
[2017-01-22] MEDS: PIPERACIL-TAZO 4.5 GM PREMIX 100 ML IV SCH ×2 (03:00→09:31)
[2017-01-22] MEDS: CHLORHEXIDINE GLUCONATE 2 % 1 PACK (2 CLOTHS) TOP SCH (03:08)
[2017-01-22] MEDS: RESP: ALBUTEROL 2.5 MG/IPRATROPIUM 0.5 MG NEB (SCH) NEB ×3 (03:57→16:00)
[2017-01-22] MEDS: THIAMINE INJ 100 MG in SODIUM CHLORIDE 0.9% INJ 100 ML IV SCH (09:30)
[2017-01-22] MEDS: MULTIVITAMIN TAB PO SCH (09:31)
[2017-01-22] MEDS: SODIUM CHLORIDE 0.9% FLUSH 10 ML FLUSH IV FLUSH SCH (09:31)
[2017-01-22] MEDS: FOLIC ACID 1 MG TAB PO SCH (09:31)
[2017-01-22] MEDS: DIGOXIN 0.125 MG TAB PO SCH (09:31)
[2017-01-22] MEDS: RIFAXIMIN 550 MG TAB PO SCH (09:31)
[2017-01-22] MEDS: QUEtiapine FUMARATE 200 MG TAB PO SCH (09:31)
[2017-01-22] MEDS: DILTIAZEM HCL 90 MG TAB PO SCH ×3 (09:31→17:39)
[2017-01-22] MEDS: LACTULOSE SYRUP 20 GM/30 ML CUP PO SCH (09:31)
[2017-01-22] MEDS: DOCUSATE SODIUM 100 MG CAP PO SCH (11:52)
[2017-01-22] MEDS: SENNOSIDES 8.6 MG TAB PO SCH (11:52)
--- NOTE | 2017-01-22 12:56 | HHI.PR ---
Subjective Remarks not as alert as yesterday. has some abdominal distention. no fever. d/w the RN and no acute issues over night. Objective Vitals Vital Signs Date Time Temp Pulse Resp B/P Pulse Ox O2 Delivery O2 Flow Rate FiO2 01/22/17 08:25 96 21 01/22/17 08:01 97.9 81 18 181/88 100 01/22/17 04:00 97.8 73 17 145/84 96 01/22/17 00:00 98.6 01/22/17 00:00 98.2 68 17 134/63 99 01/21/17 20:00 97.7 81 17 128/60 97 01/21/17 18:00 112/60 01/21/17 16:24 99.0 80 18 129/60 99 01/21/17 14:38 82 I/O 01/21/17 01/21/17 01/21/17 01/22/17 01/22/17 01/22/17 07:00 15:00 23:00 07:00 15:00 23:00 Intake Total 240 ml 600 ml 480 ml 180 ml Output Total 200 ml Balance 40 ml 600 ml 480 ml 180 ml Intake Oral 240 ml 600 ml 480 ml 180 ml Output Urine Total 200 ml # Voids 3 3 1 3 # Bowel Movements 0 1 0 1 Result Diagram: 01/20/17 0710 01/20/17 0710 Imaging Last Impressions Abdomen Ultrasound 01/21/17 0000 Signed Impressions: Service Date/Time: Saturday, January 21, 2017 21:37 - CONCLUSION: Moderate abdominal ascites. Shane Man MD Abdomen X-Ray 01/16/17 0000 Signed Impressions: Service Date/Time: Monday, January 16, 2017 09:28 - CONCLUSION: Unremarkable study except for stool. Anjelica Briones MD Chest X-Ray 01/15/17 0600 Signed Impressions: Service Date/Time: Sunday, January 15, 2017 03:43 - CONCLUSION: 1. Cardiomegaly. Improving pulmonary edema. Jesus Miller MD Liver Ultrasound 01/12/17 0000 Signed Impressions: Service Date/Time: Thursday, January 12, 2017 10:59 - CONCLUSION: 1. Cirrhosis and portal hypertension. 2. Hepatosplenomegaly. 3. Trace ascites. 4. Right pleural effusion. 5. Common duct mildly prominent at 9 mm. Karlos Guillermo MD Objective Remarks GENERAL: This is a well-nourished, well-developed patient, in no apparent distress. CARDIOVASCULAR: Regular rate and regular rhythm without murmurs, gallops, or rubs. RESPIRATORY: Clear to auscultation. Breath sounds equal bilaterally. No wheezes , rales, or rhonchi. GASTROINTESTINAL: Abdomen soft, non-tender, distended. Normal, active bowel sounds MUSCULOSKELETAL: Extremities with mild bilateral pedal edema. NEURO: Alert & Oriented x4 to person, place, time, situation. Moves all ext x4 Procedures none Medications and IVs Current Medications Diltiazem HCl/ Sodium Chloride (Cardizem Inj/NS Inj) 125 ml @ 0 mls/hr TITRATE IV Last administered on 01/15/17 03:51; Start 01/11/17 at 08:00; Stop at 09:01; Status DC Diltiazem HCl (Cardizem Inj) 20 mg ONCE ONCE IV Last administered on 08:03; Start 01/11/17 at 08:00; Stop 01/11/17 at 08:01; Status DC Diltiazem HCl 25 mg 25 mg ONCE ONCE IV Last administered on 01/11/17 08:38; Start 01/11/17 at 08:30; Stop 01/11/17 at 08:31; Status DC Vancomycin HCl 1000 mg/Sodium Chloride 250 ml @ 250 mls/hr ONCE STAT IV Last administered on 01/11/17 10:10; Start 01/11/17 at 08:34; Stop 01/11/17 at 09:33 ; Status DC Piperacillin Sod/ Tazobactam Sod 100 ml @ 200 mls/hr ONCE STAT IV Last administered on 01/11/17 09:16; Start 01/11/17 at 08:34; Stop 01/11/17 at 09:03 ; Status DC Sodium Chloride 1,000 ml @ 1,000 mls/hr Q1H ONCE IV Last administered on 09:15; Start 01/11/17 at 08:35; Stop 01/11/17 at 09:34; Status DC Sodium Chloride 1,000 ml @ 1,000 mls/hr Q1H ONCE IV Last administered on 09:15; Start 01/11/17 at 08:35; Stop 01/11/17 at 09:34; Status DC Sodium Chloride 700 ml @ 1,000 mls/hr Q42M ONCE IV Last administered on 09:40; Start 01/11/17 at 08:35; Stop 01/11/17 at 09:16; Status DC Magnesium Sulfate/ Dextrose (Magnesium Sulfate 1 Gm Premix) 100 ml @ 100 mls/ hr ONCE ONCE IV Last administered on 01/11/17 09:39; Start 01/11/17 at 09:15 ; Stop 01/11/17 at 10:14; Status DC Potassium Chloride (KCl) 40 meq ONCE ONCE PO Last administered on 01/11/17 09 :39; Start 01/11/17 at 09:15; Stop 01/11/17 at 09:16; Status DC Flumazenil (Romazicon Inj) 0.2 mg Q1M PRN IV PUSH SEE LABEL COMMENTS; Start 08/19 at 09:15 Lorazepam (Ativan) 1 mg Q4H PRN PO CIWA 8 - 10 Last administered on 01/16/17 01:02; Start 01/11/17 at 09:15 Lorazepam (Ativan Inj) 1 mg Q4H PRN IV PUSH CIWA 8 - 10 Last administered on 14:23; Start 01/11/17 at 09:15 Lorazepam (Ativan) 2 mg Q2H PRN PO CIWA 11-14; Start 01/11/17 at 09:15 Lorazepam (Ativan Inj) 2 mg Q2H PRN IV PUSH CIWA 11-14 Last administered on 03:53; Start 01/11/17 at 09:15 Lorazepam (Ativan Inj) 2 mg Q1H PRN IV PUSH CIWA 15-20 Last administered on 20:12; Start 01/11/17 at 09:15 Lorazepam (Ativan Inj) 2 mg Q15M PRN IV PUSH CIWA > 20 Last administered on 02:13; Start 01/11/17 at 09:15 Quetiapine Fumarate 200 mg 200 mg DAILY PO Last administered on 01/22/17 09:31 ; Start 01/12/17 at 09:00 Sodium Chloride (NS 1000 ml Inj) 1,000 ml @ 100 mls/hr Q10H IV Last administered on 01/11/17 12:14; Start 01/11/17 at 11:48; Stop 01/11/17 at 19:56 ; Status DC Sodium Chloride (NS Flush) 2 ml UNSCH PRN IV FLUSH FLUSH AFTER USING IV ACCESS Last administered on 01/15/17 08:20; Start 01/11/17 at 12:00 Sodium Chloride (NS Flush) 2 ml BID IV FLUSH Last administered on 01/22/17 09: 31; Start 01/11/17 at 21:00 Acetaminophen (Tylenol) 650 mg Q4H PRN PO TEMP > 100.4; Start 01/11/17 at 12:00 Ondansetron HCl (Zofran Inj) 4 mg Q6H PRN IVP NAUSEA OR VOMITING; Start at 12:00 Docusate Sodium (Colace) 100 mg Q12H PO Last administered on 01/21/17 12:30; Start 01/11/17 at 12:00 Sennosides (Senokot) 17.2 mg Q12H PRN PO CONSTIPATION; Start 01/11/17 at 12:00 ; Stop 01/15/17 at 15:40; Status DC Acetaminophen (Tylenol) 650 mg Q6H PRN PO PAIN SCALE 1 TO 2; Start 01/11/17 at 12:00 Oxycodone HCl (Roxicodone) 10 mg Q4H PRN PO PAIN SCALE 6 TO 10; Start 01/11/17 at 12:00 Oxycodone HCl (Roxicodone) 5 mg Q4H PRN PO PAIN SCALE 3 TO 5; Start 01/11/17 at 12:00 Naloxone HCl (Narcan Inj) 0.4 mg UNSCH PRN IV SEE LABEL COMMENTS; Start at 12:00 Diltiazem HCl 60 mg 60 mg QID PO Last administered on 01/13/17 20:22; Start at 13:00; Stop 01/14/17 at 08:21; Status DC Piperacillin Sod/ Tazobactam Sod 100 ml @ 200 mls/hr Q6H IV Last administered on 01/22/17 09:31; Start 01/11/17 at 15:00 Pharmacy Profile Note 0 ml @ 0 mls/hr UNSCH OTHER ; Start 01/11/17 at 12:30; Stop 01/14/17 at 12:56; Status DC Vancomycin HCl/ Sodium Chloride (Vancomycin Inj/ NS 250 ml Inj) 262.5 ml @ 262.5 mls/ hr Q12H IV ; Start 01/11/17 at 21:00; Status Cancel Multivitamins (Theragran) 1 tab DAILY PO Last administered on 01/22/17 09:31; Start 01/11/17 at 13:00 Thiamine HCl (Vitamin B1) 100 mg DAILY PO Last administered on 01/15/17 08:21 ; Start 01/11/17 at 13:00; Stop 01/15/17 at 15:40; Status DC Folic Acid (Folate) 1 mg DAILY PO Last administered on 01/22/17 09:31; Start 01/11/17 at 13:00 Enoxaparin Sodium 40 mg 40 mg Q24H SQ ; Start 01/11/17 at 12:45; Stop 01/11/17 at 12:46; Status DC Vancomycin HCl/ Sodium Chloride (Vancomycin Inj/ NS 500 ml Inj) 517.5 ml @ 250 mls/hr Q12H IV Last administered on 01/12/17 04:00; Start 01/11/17 at 16:00; Stop 01/12/17 at 16:23; Status DC Miscellaneous Information SPECIFIC LAB TO BE DRAWN:VANCOMYCIN TROUGH DATE TO... ONCE ONCE .XX Last administered on 01/13/17 09:45; Start 01/13/17 at 09:45; Stop 01/13/17 at 09:46; Status DC Furosemide (Lasix Inj) 40 mg ONCE ONCE IV PUSH Last administered on 01/11/17 20:57; Start 01/11/17 at 19:45; Stop 01/11/17 at 19:51; Status DC Ipratropium [place] (Atrovent Neb) 0.5 mg ONCE ONCE NEB Last administered on 20:37; Start 01/11/17 at 20:00; Stop 01/11/17 at 20:01; Status DC Diltiazem HCl (Cardizem Inj) 20 mg ONCE ONCE IV Last administered on 09:24; Start 01/12/17 at 08:15; Stop 01/12/17 at 08:16; Status DC Diltiazem HCl (Cardizem Inj) 25 mg STK-MED ONCE .ROUTE ; Start 01/12/17 at 08:02 ; Stop 01/12/17 at 08:04; Status DC Metoprolol Tartrate (Lopressor Inj) 5 mg STK-MED ONCE .ROUTE Last administered on 01/12/17 08:24; Start 01/12/17 at 08:24; Stop 01/12/17 at 08:25; Status DC Methylprednisolone Sodium Succinate (SoluMEDROL INJ) 125 mg ONCE ONCE IV PUSH Last administered on 01/12/17 09:40; Start 01/12/17 at 08:45; Stop 01/12/17 at 08:46; Status DC Metoprolol Tartrate (Lopressor Inj) 5 mg NOW ONCE IV ; Start 01/12/17 at 08:45 ; Stop 01/12/17 at 08:46; Status DC Atropine Sulfate (Atropine Inj) 1 mg STK-MED ONCE .ROUTE ; Start 01/12/17 at 08: 39; Stop 01/12/17 at 08:40; Status DC Epinephrine HCl 1 mg 1 mg STK-MED ONCE .ROUTE ; Start 01/12/17 at 08:39; Stop at 08:40; Status DC Dexmedetomidine HCl/Sodium Chloride (Precedex Inj/NS Inj) 52 ml @ 0 mls/hr TITRATE IV Last administered on 01/13/17 02:07; Start 01/12/17 at 08:45; Stop 01/13/17 at 10:55; Status DC Metoprolol Tartrate 5 mg 5 mg ONCE ONCE IV PUSH Last administered on 09:45; Start 01/12/17 at 09:45; Stop 01/12/17 at 09:47; Status DC Heparin Sodium/ Dextrose (Heparin-D5W Inj) 250 ml @ 0 mls/hr TITRATE IV ; Start 01/12/17 at 10:30; Stop 01/12/17 at 10:30; Status DC Albuterol/ Ipratropium (Duoneb Neb) 1 ampule Q6HR NEB NEB Last administered on 01/19/17 10:46; Start 01/12/17 at 10:30; Stop 01/19/17 at 13:13; Status DC Albuterol/ Ipratropium 1 ampule 1 ampule Q2HR NEB PRN NEB SHORTNESS OF BREATH; Start 01/12/17 at 10:30 Azithromycin/ Sodium Chloride (Zithromax Inj/ NS 250 ml Inj) 250 ml @ 250 mls/ hr Q24H IV Last administered on 01/19/17 11:25; Start 01/12/17 at 11:00; Stop 01/19/17 at 18:20; Status DC Metoprolol Tartrate (Lopressor Inj) 2.5 mg Q6HR IV PUSH Last administered on 04:54; Start 01/12/17 at 12:00; Stop 01/16/17 at 09:01; Status DC Methylprednisolone Sodium Succinate 60 mg 60 mg Q12HR IV PUSH Last administered on 01/16/17 07:51; Start 01/12/17 at 21:00; Stop 01/16/17 at 09:08 ; Status DC Thiamine HCl/ Sodium Chloride (Thiamine Inj/NS Inj) 101 ml @ 101 mls/hr DAILY IV Last administered on 01/22/17 09:30; Start 01/12/17 at 12:00 Pantoprazole Sodium 40 mg 40 mg Q24H IV PUSH Last administered on 01/12/17 10: 45; Start 01/12/17 at 10:45; Stop 01/12/17 at 13:57; Status DC Potassium Chloride 100 ml @ 50 mls/hr Q2H PRN IV For Potassium 2.8 - 3.2 mEq/L ; Start 01/12/17 at 14:00; Stop 01/20/17 at 07:58; Status DC Potassium Chloride (KCl 20 Meq Premix Inj) 100 ml @ 50 mls/hr Q2H PRN IV For Potassium 2.8 - 3.2 mEq/L; Start 01/12/17 at 14:00; Stop 01/20/17 at 07:58; Status DC Potassium Bicarb/ Potassium Chloride 50 meq 50 meq UNSCH PRN PO For Potassium 3.3 - 3.5 mEq/L Last administered on 01/13/17 21:41; Start 01/12/17 at 14:00; Stop 01/20/17 at 07:58; Status DC Potassium Chloride 100 ml @ 25 mls/hr UNSCH PRN IV For Potassium 3.3 - 3.5 mEq /L; Start 01/12/17 at 14:00; Stop 01/20/17 at 07:58; Status DC Potassium Chloride 100 ml @ 50 mls/hr Q2H PRN IV For Potassium 3.3 - 3.5 mEq/L ; Start 01/12/17 at 14:00; Stop 01/20/17 at 07:58; Status DC Magnesium Sulfate/ Sodium Chloride (Magnesium Sulfate Inj/NS Inj) 100 ml @ 50 mls/hr UNSCH PRN IV For Magnesium 0.9 - 1.1 mg/dL; Start 01/12/17 at 14:00; Stop 01/20/17 at 07:58; Status DC Magnesium Oxide 800 mg 800 mg UNSCH PRN PO For Magnesium 1.2 - 1.6 mg/dL; Start 01/12/17 at 14:00; Stop 01/20/17 at 07:58; Status DC Magnesium Sulfate/ Sodium Chloride (Magnesium Sulfate Inj/NS Inj) 100 ml @ 50 mls/hr UNSCH PRN IV For Magnesium 1.2 - 1.6 mg/dL; Start 01/12/17 at 14:00; Stop 01/20/17 at 07:58; Status DC Potassium Phosphate 2000 mg 2,000 mg Q4H PRN PO For Phosphorus < 2.5 mg/dL; Start 01/12/17 at 14:00; Stop 01/20/17 at 07:58; Status DC Sodium Phosphate/ Sodium Chloride (Sodium Phosphate Inj/NS 250 ml Inj) 250 ml @ 42 mls/hr UNSCH PRN IV For Phosphorus < 2.5 mg/dL; Start 01/12/17 at 14:00; Stop 01/20/17 at 07:58; Status DC Potassium Phosphate 2000 mg 2,000 mg UNSCH PRN PO/TUBE SEE LABEL COMMENTS; Start 01/12/17 at 14:00; Stop 01/20/17 at 07:58; Status DC Potassium Phosphate 30 mmol/ Sodium Chloride 260 ml @ 42 mls/hr UNSCH PRN IV SEE LABEL COMMENTS; Start 01/12/17 at 14:00; Stop 01/20/17 at 07:58; Status DC Pantoprazole Sodium 80 mg/ Sodium Chloride 100 ml @ 10 mls/hr Q10H IV Last administered on 01/13/17t 01:16; Start 01/12/17 at 15:00; Stop 01/13/17 at 18:03 ; Status DC Vancomycin HCl/ Sodium Chloride (Vancomycin Inj/ NS 500 ml Inj) 517.5 ml @ 250 mls/hr Q12H IV Last administered on 01/14/17 10:11; Start 01/12/17 at 22:00; Stop 01/14/17 at 12:56; Status DC Chlordiazepoxide (Librium) 25 mg TID PO Last administered on 01/20/17 13:59; Start 01/13/17 at 13:00; Stop 01/20/17 at 15:23; Status DC Albumin Human (Albumin 25% Inj) 25 gm Q2H IV Last administered on 01/13/17 12: 54; Start 01/13/17 at 12:00; Stop 01/13/17 at 14:01; Status DC Digoxin (Lanoxin Inj) 0.25 mg NOW ONCE IV PUSH Last administered on 01/13/17 15:09; Start 01/13/17 at 15:00; Stop 01/13/17 at 15:03; Status DC Digoxin (Lanoxin Inj) 0.25 mg ONCE ONCE IV PUSH Last administered on 22:30; Start 01/13/17 at 22:15; Stop 01/13/17 at 22:18; Status DC Metoprolol Tartrate 5 mg 5 mg ONCE ONCE IV PUSH Last administered on 22:32; Start 01/13/17 at 22:15; Stop 01/13/17 at 22:18; Status DC Magnesium Sulfate/ Dextrose 100 ml @ 100 mls/hr Q1H IV Last administered on 23:27; Start 01/13/17 at 22:15; Stop 01/14/17 at 00:14; Status DC Dexmedetomidine HCl 200 mcg/ Sodium Chloride 52 ml @ 0 mls/hr TITRATE IV Last administered on 01/14/17 02:37; Start 01/14/17 at 02:30; Stop 01/14/17 at 02:40 ; Status DC Dexmedetomidine HCl/Sodium Chloride (Precedex Inj/NS 250 ml Inj) 250 ml @ 0 mls/ hr TITRATE IV Last administered on 01/16/17 05:06; Start 01/14/17 at 02:45; Stop 01/19/17 at 18:20; Status DC Diltiazem HCl (Cardizem) 90 mg QID PO Last administered on 01/22/17 12:22; Start 01/14/17 at 09:00 Digoxin (Lanoxin Inj) 0.25 mg NOW STAT IVS ; Start 01/14/17 at 08:18; Stop at 08:23; Status DC Digoxin (Lanoxin Inj) 0.25 mg Q6H IVS ; Start 01/14/17 at 15:00; Stop 01/14/17 at 15:00; Status DC Miscellaneous Information SPECIFIC LAB TO BE JEFF... ONCE ONCE .XX Last administered on 01/14/17 10:05; Start 01/14/17 at 09:45; Stop 01/14/17 at 09:46 ; Status DC Miscellaneous Information 1 [id number] XX Last administered on 01/15/17 15:45; Start 01/15/17 at 15:45 Chlorhexidine Gluconate (Chlorhexidine 2% Cloth) Taper DAILY@04 TOP Last administered on 01/19/17 04:00; Start 01/16/17 at 04:00; Stop 01/12/18 at 03:59 Chlorhexidine Gluconate (Chlorhexidine 2% Cloth) 3 pack UNSCH PRN TOP HYGIENIC CARE; Start 01/15/17 at 15:45 Sennosides (Senokot) 17.2 mg Q12H PO Last administered on 01/21/17 12:30; Start 01/16/17 at 00:00 Polyethylene Glycol (Miralax) 17 gm ONCE ONCE PO Last administered on 19:27; Start 01/15/17 at 15:45; Stop 01/15/17 at 15:47; Status DC Polyethylene Glycol (Miralax) 17 gm DAILY PO Last administered on 01/16/17 07: 51; Start 01/16/17 at 09:00; Stop 01/16/17 at 09:00; Status DC Lactulose (Lactulose Liq) 30 ml ONCE ONCE PO Last administered on 01/15/17 19 :26; Start 01/15/17 at 15:45; Stop 01/15/17 at 15:47; Status DC Lactulose (Lactulose Liq) 30 ml DAILY PO Last administered on 01/16/17 07:50; Start 01/16/17 at 09:00; Stop 01/16/17 at 09:00; Status DC Metoprolol Tartrate (Lopressor) 50 mg Q12HR PO Last administered on 01/17/17 08:59; Start 01/16/17 at 09:00; Stop 01/17/17 at 09:22; Status DC Lactulose (Lactulose Liq) 30 ml Q6HR PO Last administered on 01/16/17 23:46; Start 01/16/17 at 12:00; Stop 01/17/17 at 09:20; Status DC Polyethylene Glycol (Miralax) 17 gm BID PO Last administered on 01/18/17 07:53 ; Start 01/16/17 at 21:00; Stop 01/19/17 at 18:20; Status DC Metoprolol Tartrate (Lopressor Inj) 5 mg Q6HR PRN IV PUSH HR > 140, SBP > 110 Last administered on 01/17/17 11:14; Start 01/16/17 at 10:00 Digoxin (Lanoxin Inj) 0.25 mg ONCE ONCE IV PUSH Last administered on 09:59; Start 01/16/17 at 09:30; Stop 01/16/17 at 09:31; Status DC Methylprednisolone Sodium Succinate (SoluMEDROL INJ) 40 mg Q12HR IV PUSH Last administered on 01/17/17 09:01; Start 01/16/17 at 21:00; Stop 01/17/17 at 09:22 ; Status DC Lactulose (Lactulose Liq) 30 ml BID PO Last administered on 01/22/17 09:31; Start 01/17/17 at 21:00 Potassium Chloride 30 meq 30 meq ONCE ONCE PO Last administered on 01/17/17 11:18; Start 01/17/17 at 10:00; Stop 01/17/17 at 10:01; Status DC Magnesium Sulfate/ Dextrose (Magnesium Sulfate 1 Gm Premix) 100 ml @ 100 mls/ hr ONCE ONCE IV Last administered on 01/17/17 11:16; Start 01/17/17 at 10:00 ; Stop 01/17/17 at 10:59; Status DC Digoxin (Lanoxin Inj) 0.25 mg ONCE ONCE IV PUSH Last administered on 11:13; Start 01/17/17 at 10:00; Stop 01/17/17 at 10:01; Status DC Rifaximin (Xifaxan) 550 mg BID PO Last administered on 01/22/17 09:31; Start 01/17/17 at 10:00 Methylprednisolone Sodium Succinate (SoluMEDROL INJ) 40 mg DAILY IV PUSH Last administered on 01/19/17 08:30; Start 01/18/17 at 09:00; Stop 01/20/17 at 08:59 ; Status DC Metoprolol Tartrate (Lopressor) 50 mg Q8HR PO Last administered on 01/19/17 13 :51; Start 01/17/17 at 14:00; Stop 01/19/17 at 16:53; Status DC Digoxin (Lanoxin Inj) 0.25 mg Q6H IVS Last administered on 01/18/17 05:13; Start 01/17/17 at 18:00; Stop 01/18/17 at 06:01; Status DC Digoxin (Lanoxin) 0.125 mg DAILY PO Last administered on 01/22/17 09:31; Start 01/18/17 at 10:15 Metoprolol Tartrate (Lopressor) 50 mg Q6HR PO Last administered on 01/22/17 12 :22; Start 01/19/17 at 18:00 Albuterol/ Ipratropium (Duoneb Neb) 1 ampule Q6HR NEB NEB Last administered on 01/22/17 08:24; Start 01/19/17 at 22:00 Chlordiazepoxide (Librium) 10 mg TID PO Last administered on 01/21/17 12:30; Start 01/20/17 at 18:00; Status Hold Chlordiazepoxide (Librium) 5 mg TID PO Last administered on 01/21/17 12:30; Start 01/20/17 at 18:00; Status Hold A/P Assessment and Plan A/P Alcohol withdrawal syndrome Alcohol dependence Polysubstance abuse including THC/amphetamines Schizoaffective schizophrenia Continue Seroquel 200 mg by mouth daily/home medication for schizophrenia .tapered down the librium -Supplement thiamine, folate and multivitamin daily Acetaminophen for fever Oxycodone for pain management Acute hypoxemic respiratory failure-resolved Bibasilar pneumonia/aspiration Acute COPD exacerbation Nasal cannula to maintain saturations greater than equal to 92%. Currently on room air Incentive spirometry while awake -DuoNeb every 6 hours scheduled and when necessary Atrial fibrillation with RVR Chronic atrial fibrillation Hypertension -continue PO cardizem . -Continue metoprolol cardiology switched to 50 mg 4 times a day Currently digoxin 0.125 mg by mouth daily. -Attempt to avoid amiodarone due to liver cirrhosis -2d echo 65-70%, no regional wall motion abnormality mild to mod MR, Cardiology consulted by [facility]. Dr Rich -No anticoagulation due to thrombocytopenia/poor candidate Hepatitis C Liver cirrhosis Constipation ascites -Regular diet as tolerated. Currently on Protonix . -Liver ultrasound repeated and showed moderate ascites. -Lactulose 30 ml 2 times a day for elevated ammonia/constipation and added Xifaxan 550 twice a day -IR consulted for paracentesis -will start on lasix and aldactone. MiraLAX/Colace and Senokot for bowel regimen Severe sepsis Bibasilar pneumonia -treated with Abx. Microcytic anemia Thrombocytopenia -Thrombocytopenia most likely related to liver disease and sepsis -Monitor CBC, CMP, INR Hypokalemia - resolved DVT prophylaxis with SCD's. Discharge Planning not ready for discharge today. Tho Simental MD Jan 22, 2017 12:56
[2017-01-22] MEDS ORDERED: SPIRONOLACTONE 50 MG TAB PO SCH (13:00)
[2017-01-22] MEDS ORDERED: ALBUMIN HUMAN 25% 12.5GM-W/25GM FOR 37.5GM IV ONE (17:30)
[2017-01-22] MEDS ORDERED: ALBUMIN HUMAN 25% 25GM-W/12.5GM FOR 37.5GM IV ONE (17:30)
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
[2017-01-22] MEDS ORDERED: FUROSEMIDE 40 MG TAB PO SCH (18:00)
[2017-01-22] MEDS ORDERED: LIDOCAINE HCL 1% PF 30 ML VIAL ONE (18:09)
[2017-01-22 20:10] LABS: PERITONEAL HISTIOCYTES 15 %; PERITONEAL LYMPHS 40 %; PERITONEAL MESOTHELIAL 2 %; PERITONEAL MONOS 25 %; PERITONEAL POLYS(SEGS) 18 %; PERITONEAL WBC 159 /MM3 (0-10)
== END 2017-01-22 20:25 | disposition left against medical advice (07) | DRG 871 ==
LOC: NEPC 07:31 → NEDA 09:20 → HCIN 13:41 → HCIS 01-12 07:48 → HIME 01-12 08:55 → HIMN 01-15 12:50 → N04B 01-19 22:51
PROVIDERS: ADMIT Internal Medicine; ATTEND Internal Medicine
PROC: 0W9G3ZZ Drainage of Peritoneal Cavity, Percutaneous Approach (ICD-10-PCS; principal; 2017-01-22)
DX: A41.9 Sepsis, unspecified organism (principal); J96.01 Acute respiratory failure with hypoxia; J69.0 Pneumonitis due to inhalation of food and vomit; G93.40 Encephalopathy, unspecified; E87.2 Acidosis; K76.6 Portal hypertension; E87.1 Hypo-osmolality and hyponatremia; J44.1 Chronic obstructive pulmonary disease with (acute) exacerbation; L03.114 Cellulitis of left upper limb; F10.239 Alcohol dependence with withdrawal, unspecified; F10.24 Alcohol dependence with alcohol-induced mood disorder; L03.113 Cellulitis of right upper limb; D69.59 Other secondary thrombocytopenia; I48.2 Chronic atrial fibrillation; K70.31 Alcoholic cirrhosis of liver with ascites; R65.20 Severe sepsis without septic shock; F15.10 Other stimulant abuse, uncomplicated; F12.10 Cannabis abuse, uncomplicated; D50.9 Iron deficiency anemia, unspecified; E87.6 Hypokalemia; E83.42 Hypomagnesemia; F17.210 Nicotine dependence, cigarettes, uncomplicated; I25.10 Atherosclerotic heart disease of native coronary artery without angina pectoris; I25.2 Old myocardial infarction; B19.20 Unspecified viral hepatitis C without hepatic coma; F25.9 Schizoaffective disorder, unspecified; R07.89 Other chest pain; K59.00 Constipation, unspecified; I16.0 Hypertensive urgency; I10 Essential (primary) hypertension; I34.0 Nonrheumatic mitral (valve) insufficiency; Z91.19 Patient's noncompliance with other medical treatment and regimen; Z59.0 Homelessness
CPT/HCPCS: 36600; 49083; 71010; 74000; 76705; 76937; 80048; 80053; 80162; 80202; 80307; 81001; 82042; 82140; 82550; 82805; 82945; 83036; 83605; 83615; 83690; 83735; 84100; 84157; 84443; 84484; 85025; 85027; 85384; 85610; 85730; 86850; 86900; 86901; 87040; 87070; 87086; 87205; 87641; 89051; 93005; 93306; 94150; 94640; 94664; 96365; 96374; 96376; 99292; C1729; C9113; J0171; J0456; J0461; J1160; J1940; J2060; J2543; J2920; J2930; J3370; J3411; J3475; J3480; J7030; J7040; J7050; J7644; P9047

== ENCOUNTER 2017-03-03 08:05 | Emergency (ER) | payer OTHER ==
[~2017-03-03] VITALS: Ht 182.9 cm; Wt 87.0 kg
[~2017-03-03 08:05] MED LIST changes: +ALBUAER3 INH; +ALDA50TA2 PO; -ATEN25TA PO; +CARD360C PO; +CHLO5CAP3 PO; +DIGO0.12 PO; +FOLI1TAB4 PO; +FURO1TAB60 PO; -FURO1TAB62 PO; +METO-309 PO; +THERTAB15 PO; +THIA100T PO; +XIFA550T4 PO
[2017-03-03 08:14] VITALS: BP 188/105; PULSE 92; RESP 18; TEMP 97.6
[2017-03-03] MEDS ORDERED: ONDANSETRON HCL 4 MG/2 ML VIAL IV ONE (09:00)
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
[2017-03-03 09:10] LABS: BLOOD, URINE TRACE (NEG); GLUCOSE,URINE NEG (NEG); HYALINE CAST, URINE 1 /lpf (RARE); KETONE, URINE NEG (NEG); NITRITE,URINE NEG (NEG); PH, URINE 6.5 (5.0-8.5); SQUAMOUS EPITHELIAL CELL URINE <1 /hpf (0-5); URINE COLOR YELLOW (YELLW/STRAW)
[2017-03-03 09:11] LABS: AUTOMATED NEUTROPHIL # 3.6 TH/MM3 (1.8-7.7); BASOPHIL % 0.7 % (0.0-2.0); EOSINOPHIL % 0.1 % (0.0-4.0); HEMATOCRIT 29.5 % (39.0-51.0); LYMPH % 14.7 % (9.0-44.0); LYMPHOCYTE # 0.7 TH/MM3 (1.0-4.8); MEAN CELL VOLUME 76.2 FL (80.0-100.0); MEAN CORPUSCULAR HEMOGLOBIN 24.1 PG (27.0-34.0); MEAN CORPUSCULAR HGB CONC 31.6 % (32.0-36.0); MONO % 8.9 % (0.0-8.0); NEUT % 75.6 % (16.0-70.0); PLATELET COUNT 68 TH/MM3 (150-450); RED BLOOD COUNT 3.87 MIL/MM3 (4.50-5.90); RED CELL DISTRIBUTION WIDTH 19.2 % (11.6-17.2); WHITE BLOOD COUNT 4.8 TH/MM3 (4.0-11.0)
[2017-03-03 09:13] LABS: COMMENT (UR) CULT NOT INDICATED; CULTURE IF INDICATED CULT NOT INDICATED
[2017-03-03 09:15] LABS: HEMO FLAGS AUTO DIFF
[2017-03-03 09:18] LABS: INTERNATIONAL NORMALIZED RATIO 1.3 RATIO
[2017-03-03 09:25] LABS: ANION GAP 8 MEQ/L (5-15); BICARBONATE 25.1 MEQ/L (21.0-32.0); BLOOD UREA NITROGEN 10 MG/DL (7-18); CHLORIDE 103 MEQ/L (98-107); GLOMERULAR FILTRATION RATE 133 ML/MIN (>89); POTASSIUM 3.6 MEQ/L (3.5-5.1); SODIUM (NA) 136 MEQ/L (136-145)
[2017-03-03 09:26] LABS: ALT (GPT) 84 U/L (12-78); AST (GOT) 147 U/L (15-37)
[2017-03-03 09:28] LABS: ALKALINE PHOSPHATASE 171 U/L (45-117); TOTAL BILIRUBIN ADULT 1.7 MG/DL (0.2-1.0)
[2017-03-03 09:45] LABS: OVALOCYTES 1+ (NORMAL); PLATELET ESTIMATE SMEAR LOW (NORMAL); PLATELET MORPHOLOGY NORMAL (NORMAL); SCAN/DIFF AUTO DIFF CONFIRMED
--- NOTE | 2017-03-03 09:46 | RADRPT ---
EXAM DATE/TIME: 03/03/2017 08:42 [place] COMPARISON: CHEST SINGLE AP, January 15, 2017, 3:43. INDICATIONS : Cough. MEDICAL HISTORY : Hypertension. Chronic obstructive pulmonary disease. Diabetes mellitus type II. Cirrhosis. TB. Se izures. Hep C. SURGICAL HISTORY : None. ENCOUNTER: Initial ACUITY: 2 days PAIN SCORE: 0/10 LOCATION: Bilateral chest FINDINGS: Single AP view of the chest. The lungs are clear. Cardiomediastinal silhouette within normal limits. No evidence of pleural effusion or pneumothorax. Old mid right clavicle fracture. CONCLUSION: No acute cardiopulmonary disease identified. Marky Plaza MD on March 03, 2017 at 9:43 Board Certified Radiologist. This report was verified electronically.
== END 2017-03-03 12:02 | disposition home or self-care (01) ==
LOC: NEPE 08:05
DX: K70.30 Alcoholic cirrhosis of liver without ascites (principal); F10.20 Alcohol dependence, uncomplicated; Z59.0 Homelessness; F31.9 Bipolar disorder, unspecified; F41.9 Anxiety disorder, unspecified; J44.9 Chronic obstructive pulmonary disease, unspecified; I10 Essential (primary) hypertension; F25.9 Schizoaffective disorder, unspecified; F17.210 Nicotine dependence, cigarettes, uncomplicated; F12.10 Cannabis abuse, uncomplicated; D61.818 Other pancytopenia; Y90.9 Presence of alcohol in blood, level not specified
CPT/HCPCS: 71010; 80053; 81001; 83690; 85025; 85610; 96374; J2405

== ENCOUNTER 2017-03-04 01:10 | Inpatient (IN) | payer OTHER ==
[2017-03-04] VITALS (19 sets, daily range): BP systolic 78–168; BP diastolic 47–79; PULSE 70–111; RESP 13–22; TEMP 97.6–98.5; O2SAT 95–100
[~2017-03-04] VITALS: Ht 177.8 cm; Wt 85.6 kg
[~2017-03-04 01:10] MED LIST changes: -CARD360C PO; -CHLO5CAP3 PO; -DIGO0.12 PO; -FOLI1TAB4 PO; -FURO1TAB60 PO; -THERTAB15 PO; -THIA100T PO; -XIFA550T4 PO
[2017-03-04] MEDS ORDERED: SODIUM CHLOR 0.9% 1000 ML INJ 1,000 ML IV SCH (01:44)
[2017-03-04] MEDS ORDERED: PANTOPRAZOLE INJ 80 MG in SODIUM CHLORIDE 0.9% INJ 35 ML IV ONE (01:45)
[2017-03-04] MEDS ORDERED: SODIUM CHLORIDE 0.9% FLUSH 10 ML FLUSH IVF PRN ×2 (01:45→03:45)
[2017-03-04] MEDS ORDERED: ONDANSETRON HCL 4 MG/2 ML VIAL IVP ONE (01:45)
[2017-03-04 02:25] LABS: AUTOMATED NEUTROPHIL # 4.2 TH/MM3 (1.8-7.7); BASOPHIL % 0.6 % (0.0-2.0); EOSINOPHIL % 0.1 % (0.0-4.0); HEMATOCRIT 23.5 % (39.0-51.0); LYMPH % 15.3 % (9.0-44.0); LYMPHOCYTE # 0.8 TH/MM3 (1.0-4.8); MEAN CELL VOLUME 75.8 FL (80.0-100.0); MEAN CORPUSCULAR HEMOGLOBIN 24.4 PG (27.0-34.0); MEAN CORPUSCULAR HGB CONC 32.2 % (32.0-36.0); MONO % 6.7 % (0.0-8.0); NEUT % 77.3 % (16.0-70.0); PLATELET COUNT 79 TH/MM3 (150-450); RED CELL DISTRIBUTION WIDTH 18.9 % (11.6-17.2); WHITE BLOOD COUNT 5.4 TH/MM3 (4.0-11.0)
[2017-03-04 02:39] LABS: HEMO FLAGS AUTO DIFF
[2017-03-04 02:42] LABS: APTT (PATIENT) 28.8 SEC (24.3-30.1); INTERNATIONAL NORMALIZED RATIO 1.4 RATIO
[2017-03-04 02:46] LABS: ALKALINE PHOSPHATASE 142 U/L (45-117); ALT (GPT) 71 U/L (12-78); ANION GAP 9 MEQ/L (5-15); AST (GOT) 116 U/L (15-37); BICARBONATE 27.3 MEQ/L (21.0-32.0); BLOOD UREA NITROGEN 25 MG/DL (7-18); CHLORIDE 103 MEQ/L (98-107); GLOMERULAR FILTRATION RATE 105 ML/MIN (>89); POTASSIUM 3.8 MEQ/L (3.5-5.1); SODIUM (NA) 139 MEQ/L (136-145); TOTAL BILIRUBIN ADULT 2.1 MG/DL (0.2-1.0)
[2017-03-04] MEDS: PANTOPRAZOLE INJ 80 MG in SODIUM CHLORIDE 0.9% INJ 100 ML IV SCH ×3 (02:59→21:45)
[2017-03-04 03:01] LABS: OVALOCYTES 1+ (NORMAL); PLATELET ESTIMATE SMEAR LOW (NORMAL); PLATELET MORPHOLOGY NORMAL (NORMAL); SCAN/DIFF AUTO DIFF CONFIRMED
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
[2017-03-04] MEDS ORDERED: THIAMINE INJ 100 MG in SODIUM CHLORIDE 0.9% INJ 100 ML IV ONE (03:45)
[2017-03-04] MEDS ORDERED: SODIUM CHLOR 0.9% 250 ML INJ 250 ML IV ONE (03:45)
[2017-03-04] MEDS ORDERED: SODIUM CHLORIDE 0.9% FLUSH 10 ML FLUSH IV FLUSH PRN (03:45)
[2017-03-04] MEDS ORDERED: FLUMAZENIL 0.5 MG/5 ML VIAL IV PUSH PRN (03:45)
[2017-03-04] MEDS ORDERED: NALOXONE HCL 0.4 MG/ML AMP IV PRN (03:45)
[2017-03-04] MEDS ORDERED: LORazepam 2 MG/ML VIAL IV PUSH PRN ×4 (03:45)
[2017-03-04] MEDS ORDERED: LORazepam 2 MG TAB PO PRN (03:45)
[2017-03-04] MEDS ORDERED: LORazepam 1 MG TAB PO PRN (03:45)
[2017-03-04 04:09] LABS: BLOOD, URINE NEG (NEG); COMMENT (UR) CULT NOT INDICATED; CULTURE IF INDICATED CULT NOT INDICATED; GLUCOSE,URINE NEG (NEG); KETONE, URINE TRACE mg/dL (NEG); MUCUS URINE FEW /lpf (OCC); NITRITE,URINE NEG (NEG); PH, URINE 6.5 (5.0-8.5); URINE COLOR YELLOW (YELLW/STRAW)
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
[2017-03-04] MEDS ORDERED: RESP: ALBUTEROL 2.5 MG/IPRATROPIUM 0.5 MG NEB (PRN) NEB (08:45)
[2017-03-04] MEDS: RESP: ALBUTEROL 2.5 MG/IPRATROPIUM 0.5 MG NEB (SCH) NEB ×3 (08:57→21:13)
[2017-03-04] MEDS ORDERED: ENALAPRILAT 1.25 MG/ML VIAL IV PUSH PRN (09:00)
[2017-03-04] MEDS ORDERED: SODIUM CHLORIDE 0.9% FLUSH 10 ML FLUSH IV FLUSH SCH (09:00)
[2017-03-04] MEDS: THIAMINE HCL 100 MG TAB PO SCH (10:43)
[2017-03-04] MEDS: methylPREDNISolone SOD SUCC 40 MG/1 ML VIAL IV PUSH SCH ×2 (10:43→21:10)
[2017-03-04] MEDS: AZITHROMYCIN 250 MG TAB PO SCH (10:43)
[2017-03-04] MEDS: SPIRONOLACTONE 50 MG TAB PO SCH (10:43)
[2017-03-04] MEDS: MULTIVITAMIN TAB PO SCH (10:44)
[2017-03-04] MEDS: QUEtiapine FUMARATE 200 MG TAB PO SCH (10:44)
[2017-03-04] MEDS: FOLIC ACID 1 MG TAB PO SCH (10:44)
[2017-03-04] MEDS: LACTULOSE SYRUP 20 GM/30 ML CUP PO SCH (10:44)
[2017-03-04] MEDS: SODIUM CHLORIDE 0.9% FLUSH 10 ML FLUSH IV FLUSH SCH ×2 (10:50→21:10)
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
[2017-03-04 11:19] LABS: AMPHETAMINE, URINE POS (NEG); BARBITURATES, URINE NEG (NEG); COCAINE, URINE NEG (NEG)
[2017-03-04] MEDS: OCTREOTIDE INJ 500 MCG in SODIUM CHLORID 0.9% 500 ML INJ 499.5 ML IV SCH (11:25)
[2017-03-04] MEDS: METOPROLOL TARTRATE 50 MG TAB PO SCH ×2 (12:00→17:56)
--- NOTE | 2017-03-04 12:25 | HHI.PR ---
Addendum to Inpatient Note Addendum Reason: Additional Documentation Additional Information i was notified by RN that BP dropped to 90's systolic. I will give one 1 L NS bolus now. if BP's remain low, will transfer to [facility] for closer monitoring Parisa Arriaga MD Mar 04, 2017 12:25
[2017-03-04] MEDS ORDERED: SODIUM CHLOR 0.9% 1000 ML INJ 1,000 ML IV ONE (12:30)
[2017-03-04 14:10] LABS: HEMATOCRIT 23.5 % (39.0-51.0)
[2017-03-04 14:15] LABS: REVIEW FLAG FINAL
[2017-03-04 20:13] LABS: HEMATOCRIT 23.5 % (39.0-51.0)
[2017-03-04 20:19] LABS: REVIEW FLAG FINAL
[2017-03-05] VITALS (8 sets, daily range): BP systolic 118–141; BP diastolic 58–71; PULSE 68–81; RESP 16–20; TEMP 97.6–98.4; O2SAT 95–100
[2017-03-05] MEDS: METOPROLOL TARTRATE 50 MG TAB PO SCH ×5 (00:10→23:58)
[2017-03-05 03:51] LABS: BASOPHIL % 0.4 % (0.0-2.0); HEMATOCRIT 24.5 % (39.0-51.0); LYMPH % 8.5 % (9.0-44.0); LYMPHOCYTE # 0.4 TH/MM3 (1.0-4.8); MEAN CELL VOLUME 77.6 FL (80.0-100.0); MEAN CORPUSCULAR HEMOGLOBIN 25.3 PG (27.0-34.0); MEAN CORPUSCULAR HGB CONC 32.6 % (32.0-36.0); MONO % 2.9 % (0.0-8.0); NEUT % 88.2 % (16.0-70.0); PLATELET COUNT 83 TH/MM3 (150-450); RED BLOOD COUNT 3.16 MIL/MM3 (4.50-5.90); RED CELL DISTRIBUTION WIDTH 19.5 % (11.6-17.2); WHITE BLOOD COUNT 4.5 TH/MM3 (4.0-11.0)
[2017-03-05 03:54] LABS: HEMO FLAGS DIFF FINAL
[2017-03-05] MEDS: RESP: ALBUTEROL 2.5 MG/IPRATROPIUM 0.5 MG NEB (SCH) NEB ×4 (03:55→20:38)
[2017-03-05 04:27] LABS: ANION GAP 10 MEQ/L (5-15); AST (GOT) 126 U/L (15-37); BICARBONATE 23.3 MEQ/L (21.0-32.0); BLOOD UREA NITROGEN 25 MG/DL (7-18); CHLORIDE 110 MEQ/L (98-107); GLOMERULAR FILTRATION RATE 102 ML/MIN (>89); POTASSIUM 3.7 MEQ/L (3.5-5.1); SODIUM (NA) 143 MEQ/L (136-145)
[2017-03-05 04:30] LABS: ALKALINE PHOSPHATASE 123 U/L (45-117); ALT (GPT) 72 U/L (12-78); TOTAL BILIRUBIN ADULT 1.2 MG/DL (0.2-1.0)
[2017-03-05] MEDS: OCTREOTIDE INJ 500 MCG in SODIUM CHLORID 0.9% 500 ML INJ 499.5 ML IV SCH (06:48)
--- NOTE | 2017-03-05 08:40 | GIPROC ---
[facility] [address] [facility]. [facility], [address] EGD PROCEDURE REPORT EXAM DATE: 03/05/2017 PATIENT NAME: Eitan Fortune MR #: [id number] BIRTHDATE: 1965 ATTENDING: Mera Last MD ORDER #: [id number] GROUNDS AND NURSERY SPECIALIST: Topher Rahman and Marialuisa Diego STATUS: inpatient INDICATIONS: The patient is a 52 yr old male here for an EGD due to hematemesis PROCEDURE PERFORMED: EGD w/ biopsy MEDICATIONS: Per Anesthesia and None. TOPICAL ANESTHETIC: none CONSENT: The patient understands the risks and benefits of the procedure and understands that these risks include, but are not limited to: sedation, allergic reaction, infection, perforation and/or bleeding. Alternative means of evaluation and treatment include, among others: physical exam, x-rays, and/or surgical intervention. The patient elects to proceed with this endoscopic procedure. medical equipment was checked for proper function. Hand hygiene and appropriate measures for infection prevention was taken. After the risks, benefits and alternatives of the procedure were thoroughly explained, Informed consent was verified, confirmed and timeout was successfully executed by the treatment team. The patient was anesthetized with topical anesthesia and the Pentax [id number] endoscope was introduced through the mouth and advanced to the second portion of the duodenum. Retroflexion was performed and was normal The gastroscope was then slowly withdrawn and removed. ESOPHAGUS: The esophagus was otherwise normal. STOMACH: There was mild gastritis in the gastric antrum. Multiple biopsies were performed using cold forceps. Sample sent for histology. DUODENUM: The duodenal mucosa appeared normal in the bulb and second portion of the duodenum. ADVERSE EVENTS: There were no complications. IMPRESSIONS: 1. The esophagus was otherwise normal 2. There was mild gastritis in the gastric antrum; multiple biopsies were performed 3. Normal duodenal mucosa in the bulb and second portion of the duodenum 4. Retroflexion was performed and was normal RECOMMENDATIONS: 1. Await biopsy results. Biopsy results will not be ready for 7-10 days. If you don't hear from us in two weeks, call our office for biopsy results. 2. Continue PPI PATIENT CONDITION: stable DISPOSITION: Observation REPEAT EXAM: Return as needed Mera Last MD eSigned: Mera Last MD 03/05/2017 8:40 AM cc: PATIENT NAME: Eitan Fortune MR#: [id number]
[2017-03-05] MEDS ORDERED: DO NOT ADM ANY ANTICOAGULANT DRUGS PRN (08:43)
[2017-03-05] MEDS ORDERED: *morphine SULFATE 8 MG/ML PERIprocedure ONLY ONE (09:00)
[2017-03-05] MEDS: MULTIVITAMIN TAB PO SCH (10:02)
[2017-03-05] MEDS: SPIRONOLACTONE 50 MG TAB PO SCH (10:02)
[2017-03-05] MEDS: methylPREDNISolone SOD SUCC 40 MG/1 ML VIAL IV PUSH SCH (10:02)
[2017-03-05] MEDS: AZITHROMYCIN 250 MG TAB PO SCH (10:02)
[2017-03-05] MEDS: FOLIC ACID 1 MG TAB PO SCH (10:02)
[2017-03-05] MEDS: QUEtiapine FUMARATE 200 MG TAB PO SCH (10:02)
[2017-03-05] MEDS: THIAMINE HCL 100 MG TAB PO SCH (10:02)
[2017-03-05] MEDS: LACTULOSE SYRUP 20 GM/30 ML CUP PO SCH (10:02)
[2017-03-05] MEDS: SODIUM CHLORIDE 0.9% FLUSH 10 ML FLUSH IV FLUSH SCH ×2 (10:03→23:58)
[2017-03-05 10:36] LABS: HEMATOCRIT 29.1 % (39.0-51.0); REVIEW FLAG FINAL
[2017-03-05 10:57] LABS: BICARBONATE 25.7 MEQ/L (21.0-32.0); POTASSIUM 3.8 MEQ/L (3.5-5.1)
[2017-03-05] MEDS ORDERED: PROPOFOL 200 MG/20 ML AMP IV ONE (12:18)
--- NOTE | 2017-03-05 12:20 | HHI.PR ---
Subjective Remarks Patient seen and examined this morning. Endorses some abd pain around umbilical hernia. He ate a salad and cheeseburger without any difficulty. No BM. Denies any further vomiting episodes. Is homeless but states he has housing arrangements pending. Denies CP or SOB. Ambulatory. Objective Vital Signs Date Time Temp Pulse Resp B/P Pulse Ox O2 Delivery O2 Flow Rate FiO2 03/05/17 11:03 100 21 03/05/17 09:23 98.8 67 20 147/79 99 Room Air 03/05/17 09:15 67 20 147/79 99 Room Air 03/05/17 09:00 70 20 139/69 100 Room Air 03/05/17 08:44 98.8 73 20 158/82 98 Room Air 03/05/17 08:00 98.4 70 20 141/67 99 03/05/17 04:35 98.4 70 18 131/68 95 03/05/17 03:57 99 21 03/05/17 00:41 98.3 79 16 139/71 98 03/04/17 21:14 99 21 03/04/17 20:20 98.0 76 18 120/63 98 03/04/17 20:00 70 03/04/17 16:00 98.3 106 18 130/70 98 03/04/17 13:07 101 135/70 100 03/04/17 12:31 97 91/50 99 03/04/17 12:24 96 13 89/55 99 03/04/17 12:16 111 13 78/47 95 I/O 03/04/17 03/04/17 03/04/17 03/05/17 03/05/17 03/05/17 07:00 15:00 23:00 07:00 15:00 23:00 Intake Total 850 ml 105 ml 0 ml 110 ml Output Total 1200 ml Balance 850 ml 105 ml -1200 ml 110 ml Intake Oral 0 ml 0 ml IV Total 600 ml 105 ml 10 ml Packed Cells 250 ml Other 100 ml Output Urine Total 1200 ml # Voids 1 # Bowel Movements 0 0 Result Diagram: 03/05/17 1019 03/05/17 1019 Objective Remarks GENERAL: well appearing NAD SKIN: Warm and dry. Sun exposed skin. HEAD: Normocephalic. EYES: No scleral icterus. No injection or drainage. NECK: Supple, trachea midline. No JVD or lymphadenopathy. CARDIOVASCULAR: Regular rate and rhythm without murmurs, gallops, or rubs. RESPIRATORY: Breath sounds equal bilaterally. No accessory muscle use. GASTROINTESTINAL: Abdomen soft, non-tender, nondistended. Reducible umbilical hernia. MUSCULOSKELETAL: No cyanosis, or edema. BACK: Nontender without obvious deformity. A/P Problem List: (1) Drug abuse ICD Code: F19.10 (2) COPD (chronic obstructive pulmonary disease) ICD Code: J44.9 (3) Alcoholism ICD Code: F10.20 (4) Anemia ICD Code: D64.9 (5) GI bleed ICD Code: K92.2 Assessment and Plan 52-year-old male with- 1. Anemia: Patient presented with dark stools and hematemesis. Hemoglobin 7.6 (down from 9.3 on 03/03), received 2 units of packed red blood cells. Status post EGD that showed normal esophagus. Mild gastritis, multiple biopsies performed. Normal duodenal mucosa. Follow up with GI an outpatient for biopsy results. D/C octreotide and pantoprazole drips. Protonix 40 mg PO daily started. 2. Alcoholism: CIWA protocol in place, fall and seizure precautions. thiamine/ folate/MV. Pt counseled on quitting. 3. COPD exacerbation: azithromycin po x 5 days, duoneb scheduled and prn, prednisone 50 mg daily (switched from IV Solu-Medrol) 4. cirrhosis/hep C/ elevated T. Bili and AST levels: GI consulted. resumed metoprolol and spironolactone. monitor LFTs and T. Bili. 5. hyperammonemia: 171 on admission. Improving with lactulose 6. HTN: on metoprolol. add vasotec prn BP>160/90 DVT proph: chemical prophylaxis contraindicated due to GI bleed Discharge Planning Likely DC tomorrow if hemoglobin remains stable. Problem Qualifiers (1) GI bleed: Qualified Code: K29.21 - Gastrointestinal hemorrhage associated with alcoholic gastritis Tereza Evans MD R3 Mar 05, 2017 12:20
--- NOTE | 2017-03-05 14:47 | EKG ---
Date Performed: 03/05/2017 Time Performed: 05:17:26 PTAGE: 52 years EKG: Sinus rhythm . Prolonged QT interval LVH by voltage \Compared to previous tracing, there is a rhythm change from a trial fibrillation with RVR to normal sinus rhythm. ST-T changes have improved. QT interval is slight ly prolonged on this tracing Borderline ECG PREVIOUS TRACING : 01/12/2017 05.45 DOCTOR: Greg Garnett Interpretating Date/Time 03/05/2017 14:45:54
[2017-03-05 17:44] LABS: HEMATOCRIT 28.2 % (39.0-51.0); REVIEW FLAG FINAL
[2017-03-05 20:46] LABS: HEMATOCRIT 23.5 % (39.0-51.0)
[2017-03-05 20:47] LABS: REVIEW FLAG FINAL
[2017-03-06] VITALS (9 sets, daily range): BP systolic 115–170; BP diastolic 54–77; PULSE 66–89; RESP 16–20; TEMP 97.4–98.8; O2SAT 97–100
[2017-03-06] MEDS: RESP: ALBUTEROL 2.5 MG/IPRATROPIUM 0.5 MG NEB (SCH) NEB ×4 (03:48→20:14)
[2017-03-06] MEDS: METOPROLOL TARTRATE 50 MG TAB PO SCH ×4 (06:08→23:30)
[2017-03-06] MEDS: FOLIC ACID 1 MG TAB PO SCH (09:48)
[2017-03-06] MEDS: THIAMINE HCL 100 MG TAB PO SCH (09:48)
[2017-03-06] MEDS: LACTULOSE SYRUP 20 GM/30 ML CUP PO SCH (09:48)
[2017-03-06] MEDS: MULTIVITAMIN TAB PO SCH (09:48)
[2017-03-06] MEDS: QUEtiapine FUMARATE 200 MG TAB PO SCH (09:48)
[2017-03-06] MEDS: SPIRONOLACTONE 50 MG TAB PO SCH (09:48)
[2017-03-06] MEDS: AZITHROMYCIN 250 MG TAB PO SCH (09:48)
[2017-03-06] MEDS: predniSONE 50 MG TAB PO SCH (09:49)
[2017-03-06] MEDS: PANTOPRAZOLE SOD 40 MG DELAYED RELEASE TAB PO SCH (09:49)
[2017-03-06] MEDS: SODIUM CHLORIDE 0.9% FLUSH 10 ML FLUSH IV FLUSH SCH ×2 (09:50→23:30)
[2017-03-06 10:11] LABS: AUTOMATED NEUTROPHIL # 1.7 TH/MM3 (1.8-7.7); EOSINOPHIL % 1.1 % (0.0-4.0); HEMATOCRIT 22.3 % (39.0-51.0); LYMPH % 18.8 % (9.0-44.0); LYMPHOCYTE # 0.4 TH/MM3 (1.0-4.8); MEAN CELL VOLUME 79.4 FL (80.0-100.0); MEAN CORPUSCULAR HEMOGLOBIN 25.3 PG (27.0-34.0); MEAN CORPUSCULAR HGB CONC 31.9 % (32.0-36.0); MONO % 5.7 % (0.0-8.0); NEUT % 73.4 % (16.0-70.0); PLATELET COUNT 67 TH/MM3 (150-450); RED CELL DISTRIBUTION WIDTH 19.7 % (11.6-17.2); WHITE BLOOD COUNT 2.3 TH/MM3 (4.0-11.0)
[2017-03-06 10:17] LABS: HEMO FLAGS AUTO DIFF
[2017-03-06 11:02] LABS: OVALOCYTES 1+ (NORMAL); PLATELET ESTIMATE SMEAR LOW (NORMAL); PLATELET MORPHOLOGY NORMAL (NORMAL); SCAN/DIFF AUTO DIFF CONFIRMED
--- NOTE | 2017-03-06 11:26 | HHI.PR ---
Subjective Remarks Follow-up anemia 03/06/17-patient seen and examined, H&H dropping however patient denies any GI bleed. Status post EGD with finding of gastritis. Objective Vitals Vital Signs Date Time Temp Pulse Resp B/P Pulse Ox O2 Delivery O2 Flow Rate FiO2 03/06/17 08:06 98.8 68 16 140/69 98 03/06/17 08:01 67 03/06/17 08:00 Room Air 03/06/17 04:06 Room Air 03/06/17 04:00 97.4 78 18 170/77 99 03/06/17 03:50 99 21 03/06/17 00:00 Room Air 03/06/17 00:00 98.0 74 18 115/54 97 03/05/17 20:00 97.6 70 18 122/58 100 03/05/17 20:00 Room Air 03/05/17 16:00 97.9 81 18 126/59 96 03/05/17 12:00 98.0 69 18 118/61 97 I/O 03/05/17 03/05/17 03/05/17 03/06/17 03/06/17 03/06/17 07:00 15:00 23:00 07:00 15:00 23:00 Intake Total 0 ml 710 ml Output Total 1200 ml 250 ml Balance -1200 ml 460 ml Intake Oral 0 ml 600 ml IV Total 10 ml Other 100 ml Output Urine Total 1200 ml 250 ml # Voids 2 0 1 # Bowel Movements 0 0 0 0 Result Diagram: 03/06/17 0844 03/05/17 1019 Imaging GENERAL: NAD SKIN: Warm and dry. HEAD: Normocephalic. EYES: No scleral icterus. No injection or drainage. NECK: Supple, trachea midline. No JVD or lymphadenopathy. CARDIOVASCULAR: Regular rate and rhythm without murmurs, gallops, or rubs. RESPIRATORY: Breath sounds equal bilaterally. No accessory muscle use. GASTROINTESTINAL: Abdomen soft, non-tender, nondistended. MUSCULOSKELETAL: No cyanosis, or edema. BACK: Nontender without obvious deformity. No CVA tenderness. A/P Problem List: (1) GI bleed ICD Code: K92.2 Status: Acute (2) Cirrhosis of liver ICD Code: K74.60 Status: Chronic (3) Alcohol dependence ICD Code: F10.20 Status: Acute (4) Pancytopenia ICD Code: D61.818 Status: Chronic (5) Hypochromic microcytic anemia ICD Code: D50.9 Status: Acute Assessment and Plan 52-year-old male with 1. Hypochromic microcytic Anemia GI bleed Status post EGD that showed normal esophagus. Mild gastritis, multiple biopsies performed. Normal duodenal mucosa. H&H dropping therefore will transfuse 1 unit PRBC today 03/06/17 Continue with Protonix 40 mg PO daily Appreciate input from gastroenterology will sign off 2. Alcoholism: CIWA protocol in place, fall and seizure precautions. thiamine/ folate/MV. Pt counseled on quitting. 3. COPD exacerbation: azithromycin po x 5 days, duoneb scheduled and prn, prednisone 50 mg daily however change to 20 mg twice a day 4. cirrhosis/hep C/ elevated T. Bili and AST levels: GI consulted. Continue metoprolol and spironolactone. monitor LFTs and T. Bili. 5. hyperammonemia: 171 on admission. Improving with lactulose 6. HTN: on metoprolol. vasotec prn BP>160/90 DVT proph: chemical prophylaxis contraindicated due to GI bleed Problem Qualifiers (1) GI bleed: Qualified Code: K29.21 - Gastrointestinal hemorrhage associated with alcoholic gastritis (2) Cirrhosis of liver: Qualified Code: K70.31 - Alcoholic cirrhosis of liver with ascites Shane Cruz MD Mar 06, 2017 11:26
[2017-03-06] MEDS ORDERED: SODIUM CHLOR 0.9% 250 ML INJ 250 ML IV ONE (11:30)
--- NOTE | 2017-03-06 12:08 | HHI.GIFU ---
Subjective Remarks Doing well and asymptomatic. Objective Vitals I&O Vital Signs Date Time Temp Pulse Resp B/P Pulse Ox O2 Delivery O2 Flow Rate FiO2 03/06/17 08:06 98.8 68 16 140/69 98 03/06/17 08:01 67 03/06/17 08:00 Room Air 03/06/17 04:06 Room Air 03/06/17 04:00 97.4 78 18 170/77 99 03/06/17 03:50 99 21 03/06/17 00:00 Room Air 03/06/17 00:00 98.0 74 18 115/54 97 03/05/17 20:00 97.6 70 18 122/58 100 03/05/17 20:00 Room Air 03/05/17 16:00 97.9 81 18 126/59 96 I/O 03/05/17 03/05/17 03/05/17 03/06/17 03/06/17 03/06/17 07:00 15:00 23:00 07:00 15:00 23:00 Intake Total 0 ml 710 ml Output Total 1200 ml 250 ml Balance -1200 ml 460 ml Intake Oral 0 ml 600 ml IV Total 10 ml Other 100 ml Output Urine Total 1200 ml 250 ml # Voids 2 0 1 # Bowel Movements 0 0 0 0 Laboratory Laboratory Tests Test 03/05/17 03/05/17 03/06/17 16:19 20:17 08:44 Hemoglobin 8.8 7.6 7.1 Hematocrit 28.2 23.5 22.3 White Blood Count 2.3 Red Blood Count 2.80 Mean Corpuscular Volume 79.4 Mean Corpuscular Hemoglobin 25.3 Mean Corpuscular Hemoglobin 31.9 Concent Red Cell Distribution Width 19.7 Platelet Count 67 Mean Platelet Volume 10.0 Neutrophils (%) (Auto) 73.4 Lymphocytes (%) (Auto) 18.8 Monocytes (%) (Auto) 5.7 Eosinophils (%) (Auto) 1.1 Basophils (%) (Auto) 1.0 Neutrophils # (Auto) 1.7 Lymphocytes # (Auto) 0.4 Monocytes # (Auto) 0.1 Eosinophils # (Auto) 0.0 Basophils # (Auto) 0.0 CBC Comment AUTO DIFF Differential Comment AUTO DIFF CONFIRMED Platelet Estimate LOW Platelet Morphology Comment NORMAL Ovalocytes 1+ Physical Exam HEENT: Pupils round and reactive to light; normocephalic; atraumatic; no jaundice. Throat is clear. NECK: Neck is supple, no JVD, no lymphadenopathy. CHEST: Chest is clear to auscultation and percussion. CARDIAC: Regular rate and rhythm with no murmur gallop or rubs. ABDOMEN: Soft, nondistended, nontender; no hepatosplenomegaly; bowel sounds are present in all four quadrants. EXTREMITIES: No clubbing, cyanosis, or edema. SKIN: Normal; no rash; no jaundice. 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 Assessment and Plan Plan ASSESSMENT - Gastritis, antral biopsies taken - Anemia - dropped from 9.1 to 7.6 after admission. with hematemesis, melena. Pt reports 1 week prior had caron blood in emesis and stool. Hx hep c, cirrhosis, ETOH & drug abuse. - Elevated LFTs - likely 2/2 ETOH cirrhosis PLAN - Await biopsy results - MARQUITA - Continue PPI - Follow HH - Transfuse as needed - Supportive care - Further recommendations to follow Mera Last MD Mar 06, 2017 12:08
[2017-03-06 20:10] LABS: HEMATOCRIT 29.5 % (39.0-51.0)
[2017-03-06 20:22] LABS: REVIEW FLAG FINAL
[2017-03-07] VITALS: BP 127/59; PULSE 70; RESP 16; TEMP 97.8; O2SAT 99
[2017-03-07] MEDS: RESP: ALBUTEROL 2.5 MG/IPRATROPIUM 0.5 MG NEB (SCH) NEB (03:22)
[2017-03-07 04:00] VITALS: BP 142/72; PULSE 73; RESP 18; TEMP 97.8; O2SAT 100
[2017-03-07] MEDS: METOPROLOL TARTRATE 50 MG TAB PO SCH (06:15)
[2017-03-07] MEDS ORDERED: ALDA50TA2 PO (07:35)
[2017-03-07] MEDS ORDERED: QUET1TAB9 PO (07:35)
[2017-03-07] MEDS ORDERED: PANT40TA3 PO (07:35)
[2017-03-07] MEDS ORDERED: METO-309 PO (07:35)
[2017-03-07] MEDS ORDERED: GNP100TA3 PO (07:35)
[2017-03-07 08:00] VITALS: BP 155/76; PULSE 68; RESP 20; TEMP 98; O2SAT 100
[2017-03-07] MEDS: THIAMINE HCL 100 MG TAB PO SCH (09:22)
[2017-03-07] MEDS: predniSONE 50 MG TAB PO SCH (09:23)
[2017-03-07] MEDS: SPIRONOLACTONE 50 MG TAB PO SCH (09:23)
[2017-03-07] MEDS: MULTIVITAMIN TAB PO SCH (09:24)
[2017-03-07] MEDS: PANTOPRAZOLE SOD 40 MG DELAYED RELEASE TAB PO SCH (09:24)
[2017-03-07] MEDS: AZITHROMYCIN 250 MG TAB PO SCH (09:24)
[2017-03-07] MEDS: FOLIC ACID 1 MG TAB PO SCH (09:24)
[2017-03-07] MEDS ORDERED: VENTAER INH (09:32)
[2017-03-07] MEDS ORDERED: DOXY100C PO (09:32)
[2017-03-07] MEDS ORDERED: PRED10PA PO (09:32)
[2017-03-07] MEDS ORDERED: IPRA17I INH (09:32)
--- NOTE | 2017-03-07 09:35 | HHI.PR ---
Subjective Remarks Follow-up anemia 03/06/17-patient seen and examined, H&H dropping however patient denies any GI bleed. Status post EGD with finding of gastritis. 03/07/17-patient seen and examined, he was transfused 1 unit packed red blood cell. One of H&H. Status still has some dark stools otherwise no other issues. Objective Vitals Vital Signs Date Time Temp Pulse Resp B/P Pulse Ox O2 Delivery O2 Flow Rate FiO2 03/07/17 08:00 98.0 68 20 155/76 100 03/07/17 04:00 97.8 73 18 142/72 100 03/07/17 04:00 Room Air 03/07/17 00:00 97.8 70 16 127/59 99 03/06/17 23:00 Room Air 03/06/17 20:00 85 03/06/17 20:00 97.8 89 18 132/59 100 03/06/17 17:05 98.0 75 18 156/72 100 03/06/17 14:05 98.0 75 20 156/72 03/06/17 12:05 98.7 66 16 136/66 99 I/O 03/06/17 03/06/17 03/06/17 03/07/17 03/07/17 03/07/17 07:00 15:00 23:00 07:00 15:00 23:00 Intake Total 480 ml 360 ml 240 ml Output Total 275 ml 250 ml Balance 480 ml 85 ml -10 ml Intake Oral 480 ml 360 ml 240 ml Output Urine Total 275 ml 250 ml # Voids 1 4 # Bowel Movements 0 0 0 1 Result Diagram: 03/06/17 1930 03/05/17 1019 Objective Remarks GENERAL: NAD SKIN: Warm and dry. HEAD: Normocephalic. EYES: No scleral icterus. No injection or drainage. NECK: Supple, trachea midline. No JVD or lymphadenopathy. CARDIOVASCULAR: Regular rate and rhythm without murmurs, gallops, or rubs. RESPIRATORY: Breath sounds equal bilaterally. No accessory muscle use. GASTROINTESTINAL: Abdomen soft, non-tender, nondistended. MUSCULOSKELETAL: No cyanosis, or edema. BACK: Nontender without obvious deformity. No CVA tenderness. A/P Problem List: (1) GI bleed ICD Code: K92.2 Status: Acute (2) Cirrhosis of liver ICD Code: K74.60 Status: Chronic (3) Alcohol dependence ICD Code: F10.20 Status: Acute (4) Pancytopenia ICD Code: D61.818 Status: Chronic (5) Hypochromic microcytic anemia ICD Code: D50.9 Status: Acute Assessment and Plan 52-year-old male with 1. Hypochromic microcytic Anemia GI bleed Status post EGD that showed normal esophagus. Mild gastritis, multiple biopsies performed. Normal duodenal mucosa. H&H dropped therefore he was transfused 1 unit PRBC 03/06/17. H&H improved Continue with Protonix 40 mg PO daily Appreciate input from gastroenterology signed off 2. Alcoholism: CIWA protocol in place, fall and seizure precautions. thiamine/ folate/MV. Pt counseled on quitting. 3. COPD exacerbation: azithromycin po x 5 days, duoneb scheduled and prn, prednisone 50 mg daily however change to taper 4. cirrhosis/hep C/ elevated T. Bili and AST levels: GI consulted. Continue metoprolol and spironolactone. monitor LFTs and T. Bili. 5. hyperammonemia: 171 on admission. Improving with lactulose 6. HTN: on metoprolol. vasotec prn BP>160/90 DVT proph: chemical prophylaxis contraindicated due to GI bleed Problem Qualifiers (1) GI bleed: Qualified Code: K29.21 - Gastrointestinal hemorrhage associated with alcoholic gastritis (2) Cirrhosis of liver: Qualified Code: K70.31 - Alcoholic cirrhosis of liver with ascites Shane Cruz MD Mar 07, 2017 09:35
[2017-03-07] MEDS ORDERED: LACT10SO PO (09:36)
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
== END 2017-03-07 10:40 | disposition home or self-care (01) | DRG 378 ==
LOC: NEPC 01:10 → NEDA 03:35 → NEPHCDU 04:47 → N04B 14:13
PROVIDERS: ADMIT Hospitalist; ATTEND Hospitalist
PROC: 30233N1 Transfusion of Nonautologous Red Blood Cells into Peripheral Vein, Percutaneous Approach (ICD-10-PCS; 2017-03-04)
PROC: 0DB68ZX Excision of Stomach, Via Natural or Artificial Opening Endoscopic, Diagnostic (ICD-10-PCS; principal; 2017-03-05 09:00)
DX: K92.1 Melena (principal); J44.1 Chronic obstructive pulmonary disease with (acute) exacerbation; D61.818 Other pancytopenia; K70.31 Alcoholic cirrhosis of liver with ascites; I48.91 Unspecified atrial fibrillation; I10 Essential (primary) hypertension; D50.9 Iron deficiency anemia, unspecified; F10.20 Alcohol dependence, uncomplicated; F17.210 Nicotine dependence, cigarettes, uncomplicated; F25.9 Schizoaffective disorder, unspecified; F41.9 Anxiety disorder, unspecified; B19.20 Unspecified viral hepatitis C without hepatic coma; K74.69 Other cirrhosis of liver; K29.70 Gastritis, unspecified, without bleeding
CPT/HCPCS: 36430; 71010; 76937; 80053; 80069; 80307; 81001; 82140; 82948; 83690; 85014; 85018; 85025; 85610; 85730; 86850; 86900; 86901; 86920; 88305; 88312; 93005; 94640; 94664; 96365; 96375; C9113; J2270; J2310; J2354; J2405; J2920; J3411; J7030; J7040; J7050; J7512; P9016

== ENCOUNTER 2017-03-23 12:52 | Emergency (ER) | payer OTHER ==
[~2017-03-23 12:52] MED LIST changes: +DOXY100C PO; +GNP100TA3 PO; +IPRA17I INH; +LACT10SO PO; +PANT40TA3 PO; +PRED10PA PO; +VENTAER INH
[2017-03-23 12:53] VITALS: BP 147/63; PULSE 73; RESP 14; TEMP 97.8; O2SAT 98
--- NOTE | 2017-03-23 13:04 | PD ---
Physical Exam Date Seen by Provider: Mar 23, 2017 Time Seen by Provider: 13:03 Data Data Last Documented VS Vital Signs Date Time Temp Pulse Resp B/P Pulse Ox O2 Delivery O2 Flow Rate FiO2 03/23/17 12:53 97.8 73 14 147/63 98 MDM Supervised Visit with DAVID: No Narrative Course 52 YO M with complaint of "my belly button won't pop back in" and left leg "seeping water." History of cirrhosis and Hep C. Vitals reviewed. Seen in triage, awaiting bed placement. Charlene Hendrix Mar 23, 2017 13:04
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
[2017-03-23] MEDS ORDERED: BACT800T5 PO (15:32)
[2017-03-23] MEDS ORDERED: CEPH-460 PO (15:32)
--- NOTE | 2017-03-23 16:03 | PD ---
Data Data Last Documented VS Vital Signs Date Time Temp Pulse Resp B/P Pulse Ox O2 Delivery O2 Flow Rate FiO2 03/23/17 12:53 97.8 73 14 147/63 98 MDM Supervised Visit with DAVID: Yes Narrative Course The history, exam, and medical decision-making in the associated midlevel provider note were completed with my assistance. I reviewed and agree with the findings presented. I attest that I had a [id number] encounter with the patient on the same day, and personally performed and documented my assessment and findings in the medical record. *My assessment and Findings: This is a 52-year-old male who presents to the emergency department with a history of cirrhosis. On exam he has a skin tear involving his left lower extremity with some surrounding warmth and erythema consistent with a cellulitis. He has a reducible umbilical hernia on exam. Patient likely requires antibiotic therapy for cellulitis. I think he can complete this as an outpatient. He is nontoxic appearing and at this time I don 't think any labs are warranted. He is a sick gentleman with an advancing chronic illness. I don't think further diagnostics would be much yield at this time. Diagnosis Primary Impression: Cellulitis of left lower extremity Additional Impressions: Bilateral lower extremity edema Umbilical hernia Qualified Code: K42.9 - Umbilical hernia without obstruction and without gangrene Additional Instruction: Medication as prescribed. Keep the wound on the left lower leg clean. Elevate the legs. Wear compression stockings. Follow up closely with your primary care physician in 2-3 days for recheck. Return for evidence of worsening infection such as increasing redness on the left leg, fevers. Scripts Cephalexin (Keflex)500 Mg [id number] Mg PO Q8H #30 CAP Ref 0 Prov:Marie Samson MD 03/23/17 Sulfamethoxazole-Trimethoprim (Bactrim DS)800-160 Mg Tab1 Tab PO BID #20 TAB Ref 0 Prov:Marie Samson MD 03/23/17 Disposition: 01 DISCHARGE HOME Condition: Stable Marie Samson MD Mar 23, 2017 16:03
== END 2017-03-23 16:55 | disposition home or self-care (01) ==
LOC: NEPE 12:52
DX: L03.116 Cellulitis of left lower limb (principal); R60.9 Edema, unspecified; K42.9 Umbilical hernia without obstruction or gangrene; K74.60 Unspecified cirrhosis of liver; B19.20 Unspecified viral hepatitis C without hepatic coma; F31.9 Bipolar disorder, unspecified; J44.9 Chronic obstructive pulmonary disease, unspecified; I10 Essential (primary) hypertension; F25.9 Schizoaffective disorder, unspecified
CPT/HCPCS: 99284